=== PATIENT | female | born 1990 | race Caucasian/White ===

== ENCOUNTER 2016-07-18 15:36 | Emergency (ER) | payer OTHER, SELFPAY ==
[~2016-07-18] VITALS: Ht 154.9 cm; Wt 74.8 kg
[~2016-07-18 15:36] MED LIST: ACET65TA OR; AMBI10TA OR; CIPR500T19 OR; FERR325T3 PO; FLAG500T OR; GLUC850T OR; GLYB5TA PO; IBUP80TA PO; OMEP20TA7 OR; PERC5TAB8 OR; PERCOCET PO; PRENTAB31 PO; ZOLO50TA OR
[2016-07-18 15:38] VITALS: BP 127/77
[2016-07-18] MEDS ORDERED: SERT50TA PO (15:46)
[2016-07-18] MEDS ORDERED: ALBUTEROL 90 MCG/ACT 8GM HFA INHALER INH ONE (16:15)
[2016-07-18] MEDS ORDERED: IBUPROFEN 800 MG TAB PO ONE (16:15)
[2016-07-18] MEDS ORDERED: ZITHTAB PO (16:40)
[2016-07-18] MEDS ORDERED: AZITHROMYCIN 250 MG TAB PO ONE (16:45)
--- NOTE | 2016-07-18 18:29 | ECGEPIP ---
Stationary ECG Study [facility] - ED Test Date: 2016-07-18 Pat Name: SCARLETT COSBY Department: Room: - Gender: F Spudder: neymar : 1990 Requested By: MOSHE Jain Order Number: [id number] Reading MD: Severiano Hurd Measurements Intervals [place] Rate: 66 P: -8 LA: 167 QRS: 70 QRSD: 86 T: 36 QT: 382 QTc: 403 Interpretive Statements SINUS RHYTHM BENIGN EARLY REPOLARIZATION Electronically Signed On 07-18-2016 18:29:04 EDT by Severiano Hurd
--- NOTE | 2016-07-19 06:25 | REP ---
CHEST, TWO VIEWS: There is no evidence of acute infiltrate. No pleural effusion is seen. The heart is normal in size. The mediastinal silhouette is unremarkable. The visualized osseous structures are intact. IMPRESSION: No acute pulmonary disease. Signed by Hari Mayer MD 07/19/2016 04:05 P
== END 2016-07-18 16:51 | disposition home or self-care (01) ==
LOC: M ED 16:36
DX: J45.21 Mild intermittent asthma with (acute) exacerbation (principal); J20.9 Acute bronchitis, unspecified; H66.91 Otitis media, unspecified, right ear; E11.9 Type 2 diabetes mellitus without complications; F32.9 Major depressive disorder, single episode, unspecified; Z91.040 Latex allergy status; Z91.018 Allergy to other foods; Z79.899 Other long term (current) drug therapy

== ENCOUNTER 2017-08-31 19:19 | Emergency (ER) | payer OTHER, SELFPAY ==
[2017-08-31] MEDS: KETOROLAC 30 MG/ML VIAL (J1885) IV (20:00)
[2017-08-31] MEDS: NS 1,000 ML IV (20:00)
[2017-08-31 20:14] LABS: BASO # 0.1 10^3/uL (0.0-0.2); BASO % 0.9 % (0.0-1.0); EOS # 0.1 10^3/uL (0.0-0.50); EOS % 1.1 % (0.0-3.0); HEMATOCRIT 39.3 % (36.0-47.0); IMMATURE GRANULOCYTE % 0.4 % (0-3.0); LYMPH # 2.3 10^3/uL (1.5-6.5); LYMPH % 28.4 % (24.0-44.0); MEAN CORPUSCULAR HEMOGLOBIN 33.4 pg (27.0-33.0); MEAN CORPUSCULAR VOLUME 87.5 fl (80.0-96.0); MONO # 0.4 10^3/uL (0.0-0.8); MONO % 5.2 % (0.0-5.0); NEUTROPHILS # 5.2 10^3/uL (1.8-7.7); PLATELET COUNT, AUTOMATED 190 10^3/uL (150-450); RED BLOOD COUNT 4.49 10^6/uL (4.00-5.40); RED CELL DISTRIBUTION WIDTH 12.2 % (11.5-14.5)
[2017-08-31 20:22] LABS: CONTROL LINE HCG INT CTR LINE PRESENT; HCG, SERUM QUALITATIVE NEGATIVE (NEGATIVE)
[2017-08-31 20:23] LABS: OSMOLALITY SERUM 294 MOSM/KG (275-295)
[2017-08-31 20:27] LABS: ALBUMIN 4.6 GM/DL (3.2-5.2); ALBUMIN/GLOBULIN RATIO 1.64 (1.00-1.93); ALKALINE PHOSPHATASE 70 U/L (45-117); ALT/SGPT 14 U/L (12-78); ANION GAP 11 MEQ/L (8-16); AST/SGOT 10 U/L (7-37); BILIRUBIN,DIRECT 0.2 MG/DL (0.0-0.2); BLOOD UREA NITROGEN 14 MG/DL (7-18); CARBON DIOXIDE LEVEL 24 MEQ/L (21-32); CHLORIDE LEVEL 103 MEQ/L (98-107); CREATININE FOR GFR 1.04 MG/DL (0.55-1.30); GLOMERULAR FILTRATION RATE > 60.0 (>60); GLUCOSE, FASTING 328 MG/DL (70-100); LIPASE 193 U/L (73-393); POTASSIUM SERUM 4.1 MEQ/L (3.5-5.1); SODIUM LEVEL 138 MEQ/L (136-145); TOTAL PROTEIN 7.4 GM/DL (6.4-8.2)
[2017-08-31 20:29] LABS: VENOUS PH 7.427 UNITS (7.330-7.430)
[2017-08-31 20:30] LABS: VENOUS BASE EXCESS -1.5 (-2.0-2.0); VENOUS HCO3 22.1 MEQ/L (23.0-27.0); VENOUS O2 SATURATION 78.2 % (60.0-80.0); VENOUS PARTIAL PRESSURE CO2 34.3 mmHg (38.0-50.0); VENOUS PARTIAL PRESSURE O2 37.8 mmHg (30.0-50.0); VENOUS STANDARD HCO3 22.8 MEQ/L; VENOUS TOTAL CO2 23.2 MEQ/L (24.0-28.0)
[2017-08-31 20:52] LABS: MEAN CORPUSCULAR HGB CONC 38.2 g/dl (32.0-36.5); POS COUNT POS FLAG
[2017-08-31 21:08] LABS: ESTIMATED AVERAGE GLUCOSE 126 MG/DL (60-110)
[2017-08-31 22:11] LABS: BEDSIDE GLUCOSE 304 MG/DL (70-105)
[2017-08-31 22:17] LABS: KETONE, URINE AUTO RFX TRACE mg/dL (NEGATIVE); LEUKOCYTE ESTERASE UR AUTO RFX NEGATIVE (NEGATIVE); NITRITE, URINE AUTO RFX NEGATIVE (NEGATIVE); RBC, URINE AUTO RFX 1 /HPF (0-3); SPECIFIC GRAVITY UR AUTO RFX 1.027 (1.002-1.035); SQUAM EPITHELIAL CELL UR AURFX 4 /HPF (0-6); WBC, URINE AUTO RFX 1 /HPF (0-3)
== END 2017-08-31 22:32 | disposition home or self-care (01) ==
LOC: M ED 19:19
DX: E11.65 Type 2 diabetes mellitus with hyperglycemia (principal); R42 Dizziness and giddiness; Z79.84 Long term (current) use of oral hypoglycemic drugs; Z91.040 Latex allergy status; Z91.018 Allergy to other foods
CPT/HCPCS: J1885

== ENCOUNTER → 2018-10-30 | Outpatient (REF) | payer OTHER ==
[~2018-10-30] MED LIST changes: +GLYB-147 PO; -GLYB5TA PO; +METF500T13 PO; +SERT-141 PO; +ZITHTAB PO
[2018-10-30 18:56] LABS: ALBUMIN 4.2 GM/DL (3.2-5.2); ALT/SGPT 14 U/L (12-78); BILIRUBIN,TOTAL 0.8 MG/DL (0.2-1.0); BLOOD UREA NITROGEN 13 MG/DL (7-18); CALCIUM LEVEL 8.9 MG/DL (8.5-10.1); CARBON DIOXIDE LEVEL 28 MEQ/L (21-32); CHLORIDE LEVEL 109 MEQ/L (98-107); CHOLESTEROL LEVEL 98 MG/DL (<200); CREATININE FOR GFR 0.67 MG/DL (0.55-1.30); FREE T4 0.84 NG/DL (0.76-1.46); GLOMERULAR FILTRATION RATE > 60.0 (>60); GLUCOSE, FASTING 173 MG/DL (70-100); HDL CHOLESTEROL 28 MG/DL (>40); LDL CHOLESTEROL 52 MG/DL (<100); NON-HDL-C 70 MG/DL; POTASSIUM SERUM 4.5 MEQ/L (3.5-5.1); SODIUM LEVEL 138 MEQ/L (136-145); TRIGLYCERIDES LEVEL 89 MG/DL (<150)
[2018-10-30 18:59] LABS: TOTAL 25(OH) VITAMIN D 17.1 NG/ML (30.0-100.0)
[2018-10-30 19:01] LABS: BASO # 0.1 10^3/uL (0.0-0.2); BASO % 1.1 % (0.0-1.0); EOS # 0.2 10^3/uL (0.0-0.50); EOS % 2.7 % (0.0-3.0); HEMATOCRIT 35.7 % (36.0-47.0); LYMPH # 1.4 10^3/uL (1.5-4.5); MEAN CORPUSCULAR HEMOGLOBIN 33.6 pg (27.0-33.0); MEAN CORPUSCULAR HGB CONC 36.4 g/dl (32.0-36.5); MEAN CORPUSCULAR VOLUME 92.2 fl (80.0-96.0); MONO # 0.3 10^3/uL (0.0-0.8); MONO % 5.9 % (0.0-5.0); NEUTROPHILS # 3.6 10^3/uL (1.8-7.7); NEUTROPHILS % 65.1 % (36.0-66.0); PLATELET COUNT, AUTOMATED 171 10^3/uL (150-450); RED BLOOD COUNT 3.87 10^6/uL (4.00-5.40); WHITE BLOOD COUNT 5.6 10^3/uL (4.0-10.0)
[2018-10-30 19:49] LABS: APPEARANCE, URINE CLOUDY (CLEAR); BACTERIA, URINE AUTO NEGATIVE (NEGATIVE); BILIRUBIN, URINE AUTO NEGATIVE (NEGATIVE); BLOOD, URINE BLOOD NEGATIVE (NEGATIVE); COLOR, URINE YELLOW (YELLOW); GLUCOSE, URINE (UA) AUTO NEGATIVE (NEGATIVE); KETONE, URINE AUTO NEGATIVE (NEGATIVE); LEUKOCYTE ESTERASE, URINE AUTO NEGATIVE (NEGATIVE); MUCUS, URINE SMALL (NEGATIVE); NITRITE, URINE AUTO NEGATIVE (NEGATIVE); PROTEIN, URINE AUTO NEGATIVE (NEGATIVE); RBC, URINE AUTO 1 /HPF (0-3); SPECIFIC GRAVITY URINE AUTO 1.018 (1.002-1.035); SQUAMOUS EPITHELIAL CELL UR AU 20 /HPF (0-6); UROBILINOGEN, URINE AUTO 0.2 mg/dL (0.0-2.0); WBC, URINE AUTO 2 /HPF (0-3)
[2018-10-30 20:10] LABS: CREATININE, URINE 81.3 MG/DL; MALB URINE SIEMENS 8.2 MG/L
[2018-10-30 20:15] LABS: HEMOGLOBIN A1c 4.7 %
== END ==
LOC: M LAB REF 17:50
PROVIDERS: ATTEND Nurse Practitioner Family
DX: E11.9 Type 2 diabetes mellitus without complications (principal)

== ENCOUNTER → 2019-02-05 | Outpatient (CLI) | payer OTHER ==
--- NOTE | 2019-02-05 11:43 | REP ---
Clinical: Cough and dyspnea. Technique: PA and lateral. Comparison: 07/18/2016. Findings: Mediastinum and cardiac silhouette are normal. Very subtle air space disease involving the right mid/lower lung zone cannot be excluded and should be correlated with auscultation. Findings may reflect an early bronchitis or pneumonitis. Remainder of lung jane are clear. No effusion. No pneumothorax. Impression: Very subtle right mid to lower lung air space disease cannot be excluded and should be correlated with auscultation. No discrete focal consolidation or effusion. Electronically Signed by Mack Lazaro MD 02/05/2019 11:34 A
== END ==
LOC: M RAD 11:19
PROVIDERS: ATTEND Physician Assistant
DX: R06.00 Dyspnea, unspecified (principal)

== ENCOUNTER → 2019-02-26 | Outpatient (CLI) | payer OTHER ==
[~2019-02-26] MED LIST changes: +METHACHOLINE KIT (J7674) INH ONE
--- NOTE | 2019-02-26 11:32 | PFTRPT ---
Site: [facility], [address] [place], [address] ID: [id number] Name: SCARLETT COSBY Visit Date: 02/26/2019 Second ID: [id number] Referring Doctor: ONI Kothari, Sj Dan Reviewing Doctor: Chance Crooks MD [employer] Mill Operator: Trent PAK RRT Age: 28 : 1990 Sex: Female Race: Height: 60.50 Inches Weight: 165.00 Lbs BSA: 1.73 Order IDs: [id number] Requested Test(s): <RESP-PFT.METH CHAL> Diagnosis: R06.00 of albuterol for postbronchodilator. Review Status: Not Reviewed Pre-Bronch Post-Bronch Pred Actual %Pred Actual %Chng SPIROMETRY FVC (L) 3.36 2.82 83 2.69 -4 FEV1 (L) 2.86 2.43 85 2.37 -2 FEV1/FVC (%) 84 86 102 88 2 FEF 25% (L/sec) 5.32 6.14 115 4.58 -25 FEF 50% (L/sec) 4.48 3.57 79 4.15 16 FEF 75% (L/sec) 1.89 1.22 64 1.08 -11 FEF 25-75% (L/sec) 3.25 2.89 88 2.88 FEF Max (L/sec) 6.48 6.15 94 4.73 -23 FIVC (L) 2.78 2.76 FIF 50% (L/sec) 4.02 2.76 68 2.50 -9 FIF Max (L/sec) 2.77 2.73 -1 Expiratory Time (sec) 7.10 6.70 -5 Back Extrap Vol (L) 0.13 0.15 12 Time To FEFmax (sec) 0.116 0.228 95
== END ==
LOC: M CARPUL 10:42
PROVIDERS: ATTEND Physician Assistant
DX: R40.0 Somnolence (principal)
CPT/HCPCS: 94070; 95070; J7674

== ENCOUNTER → 2019-03-07 | Outpatient (REF) | payer OTHER ==
[~2019-03-07] MED LIST changes: -METHACHOLINE KIT (J7674) INH ONE
[2019-03-07 13:07] LABS: BASO # 0.1 10^3/uL (0.0-0.2); BASO % 0.8 % (0.0-1.0); EOS # 0.1 10^3/uL (0.0-0.5); EOS % 2.3 % (0.0-3.0); HEMATOCRIT 36.7 % (36.0-47.0); LYMPH # 1.6 10^3/uL (1.5-5.0); LYMPH % 25.9 % (24.0-44.0); MEAN CORPUSCULAR HEMOGLOBIN 33.7 pg (27.0-33.0); MEAN CORPUSCULAR HGB CONC 35.4 g/dl (32.0-36.5); MEAN CORPUSCULAR VOLUME 95.1 fl (80.0-96.0); MONO # 0.4 10^3/uL (0.0-0.8); MONO % 6.5 % (0.0-5.0); NEUTROPHILS # 3.9 10^3/uL (1.5-8.5); NEUTROPHILS % 63.8 % (36.0-66.0); PLATELET COUNT, AUTOMATED 173 10^3/uL (150-450); RED BLOOD COUNT 3.86 10^6/uL (4.00-5.40); WHITE BLOOD COUNT 6.1 10^3/uL (4.0-10.0)
[2019-03-07 13:24] LABS: ALBUMIN 4.2 GM/DL (3.2-5.2); ALT/SGPT 9 U/L (12-78); BILIRUBIN,TOTAL 1.7 MG/DL (0.2-1.0); BLOOD UREA NITROGEN 15 MG/DL (7-18); CALCIUM LEVEL 8.5 MG/DL (8.5-10.1); CARBON DIOXIDE LEVEL 25 MEQ/L (21-32); CHLORIDE LEVEL 107 MEQ/L (98-107); CHOLESTEROL LEVEL 87 MG/DL (<200); CHOLESTEROL RISK RATIO 3.954 (<5); GLOMERULAR FILTRATION RATE > 60.0 (>60); GLUCOSE, FASTING 106 MG/DL (70-100); HDL CHOLESTEROL 22 MG/DL (>40); LDL CHOLESTEROL 35 MG/DL (<100); NON-HDL-C 65 MG/DL; POTASSIUM SERUM 4.1 MEQ/L (3.5-5.1); SODIUM LEVEL 140 MEQ/L (136-145); TOTAL 25(OH) VITAMIN D 21.6 NG/ML (30.0-100.0); TOTAL PROTEIN 6.9 GM/DL (6.4-8.2); TRIGLYCERIDES LEVEL 148 MG/DL (<150)
== END ==
LOC: M LAB REF 12:37
PROVIDERS: ATTEND Nurse Practitioner Family
DX: Z00.01 Encounter for general adult medical examination with abnormal findings (principal)

== ENCOUNTER → 2019-04-18 | Outpatient (REF) | payer OTHER | LOC: M LAB REF 16:02 | PROVIDERS: ATTEND Physician Assistant | DX: R10.9 Unspecified abdominal pain (principal) ==

== ENCOUNTER → 2019-05-08 | Outpatient (CLI) | payer OTHER ==
[2019-05-08 12:14] LABS: BASO % 0.6 % (0.0-1.0); EOS % 0.5 % (0.0-3.0); HEMATOCRIT 35.7 % (36.0-47.0); HEMOGLOBIN 12.7 g/dl (12.0-15.5); LYMPH # 1.5 10^3/uL (1.5-5.0); MEAN CORPUSCULAR HEMOGLOBIN 33.2 pg (27.0-33.0); MEAN CORPUSCULAR HGB CONC 35.6 g/dl (32.0-36.5); MEAN CORPUSCULAR VOLUME 93.2 fl (80.0-96.0); MONO # 0.4 10^3/uL (0.0-0.8); MONO % 6.6 % (0.0-5.0); NEUTROPHILS # 4.4 10^3/uL (1.5-8.5); PLATELET COUNT, AUTOMATED 176 10^3/uL (150-450); RED BLOOD COUNT 3.83 10^6/uL (4.00-5.40); WHITE BLOOD COUNT 6.4 10^3/uL (4.0-10.0)
[2019-05-08 12:30] LABS: ALBUMIN 4.4 GM/DL (3.2-5.2); ALT/SGPT 12 U/L (12-78); BILIRUBIN,TOTAL 0.8 MG/DL (0.2-1.0); BLOOD UREA NITROGEN 15 MG/DL (7-18); CALCIUM LEVEL 8.8 MG/DL (8.5-10.1); CARBON DIOXIDE LEVEL 23 MEQ/L (21-32); CHLORIDE LEVEL 110 MEQ/L (98-107); CREATININE FOR GFR 0.79 MG/DL (0.55-1.30); GLOMERULAR FILTRATION RATE > 60.0 (>60); GLUCOSE, FASTING 200 MG/DL (70-100); POTASSIUM SERUM 4.3 MEQ/L (3.5-5.1); RHEUMATOID FACTOR QUANT < 10.0 IU/ML (<15.0); SODIUM LEVEL 138 MEQ/L (136-145); TOTAL PROTEIN 6.8 GM/DL (6.4-8.2)
[2019-05-08 12:49] LABS: ERYTHROCYTE SEDIMENTATION RATE 4 mm/hr (0-20)
[2019-05-09 14:08] LABS: ANTINUCLEAR ANTIBODIES DIRECT Negative (Negative)
== END ==
LOC: M LAB 11:02
PROVIDERS: ATTEND Physician Assistant Medical
DX: R51 Headache (principal)

== ENCOUNTER → 2019-06-07 | Outpatient (CLI) | payer OTHER | LOC: M PAIN 09:45 | PROVIDERS: ATTEND Nurse Practitioner Family | DX: M54.5 Low back pain (principal) ==

== ENCOUNTER → 2019-07-01 | Outpatient (CLI) | payer OTHER ==
--- NOTE | 2019-07-05 01:58 | ECWPNPC ---
PATIENT NAME: SCARLETT COSBY : 1990 GENDER: FEMALE VISIT DATE: 07/01/2019 DISCHARGE DATE: 07/01/19 1141 VISIT LOCKED DATE TIME: PHYSICIAN: JULIA MCADAMS MD RESOURCE: JULIA MCADAMS MD REASON FOR APPOINTMENT 1. RIGHT SIJ [phone] -PT HAVING TROUBLE DOWNLOADING AP HISTORY OF PRESENT ILLNESS HISTORY OF PRESENT ILLNESS: PAIN THE PATIENT DESCRIBES THE PAIN... PERMISSION FROM PATIENT WAS RECEIVED TO DO TELEMEDICINE VISIT USING [employer] APPLICATION. 28 YEAR OLD FEMALE PATIENT WITH A HISTORY OF CHRONIC LOW BACK AND LEG PAIN. THE PATIENT DESCRIBES HER PAIN ACHING, STABBING, TENDER WITH A PAIN SCORE OF 4-10/10 DEPENDING ON PHYSICAL ACTIVITY. THE PATIENT STATES HER PAIN BEGINS IN HER LOW BACK AND RADIATES DOWN MAINLY HER RIGHT PELVIC, THIGH, AND LEG, WITH NUMBNESS IN HER RIGHT LEG WELL. THE PATIENT SAYS SHE WAS SEEN LAST BY YULIYA IN MAY AND WAS REFERRED TO OUR CLINIC BY RAMEZ NASSAR. THE PATIENT STATES HER PAIN STARTED IN 2007 WHILE WORKING AT [employer] WHERE SHE HAD STRAINED HER BACK SEVERAL TIMES. THE PATIENT SAYS HER PAIN WORSENED TO THE POINT OF NOT BEING ABLE TO WALK, STAND, OR GET OUT OF BED. THE PATIENT SAYS HER LOW BACK PAIN IS SEVERE THAT CAUSED HER TO GO TO THE HOSPITAL TO RECEIVE PAIN RELIEF. THE PATIENT SAYS IN WINTER OF 2008, SHE ALSO EXPERIENCED A FALL WHILE WALKING DOWN STAIRS DUE TO HER PAIN AND NOT BEING ABLE TO STAND STRAIGHT. THE PATIENT STATES HER PAIN INCREASES WITH ACTIVITIES AND IS AFFECTING HER ABILITY TO WALK, SO SHE OFTEN LIMPS, AND PERFORM OTHER NORMAL ACTIVITIES. THE PATIENT DENIES UNEXPLAINED WEIGHT LOSS, FEVER, CHILLS, NEW CHANGES IN HER URINARY OR BOWEL CONTROL. FALL RISK SCREENING: SCREENING :NO FALLS REPORTED IN THE LAST YEAR CURRENT MEDICATIONS TAKING TOPIRAMATE 50 MG TABLET 2 TABLETS ORALLY BEFORE BEDTIME TAKING TIZANIDINE HCL 2 MG TABLET 1 TABLET ORALLY TWICE DAILY NEEDED TAKING TRAZODONE HCL 100 MG TABLET 1/2-1 TAB ORALLY BEFORE BEDTIME NEEDED TAKING SUMATRIPTAN SUCCINATE 100 MG TABLET 1/2-1 TAB ORALLY AT ONSET OF HEADACHE -MAY REPEAT ONCE AFTER 2 HOURS. MAX 2 TABS/DAY TAKING GLYBURIDE 5 MG TABLET 1 TAB ORALLY BEFORE DINNER DAILY TAKING ACETAMINOPHEN 325 MG TABLET 2 TABS ORALLY EVERY 4-6 HRS NEEDED TAKING VITAMIN D (CHOLECALCIFEROL) 50 MCG (2000 UT) CAPSULE 1 CAPSULE ORALLY ONCE A DAY TAKING DULOXETINE HCL 30 MG CAPSULE DELAYED RELEASE PARTICLES 1 CAPSULE ORALLY ONCE A DAY TAKING QVAR REDIHALER 80 MCG/ACT AEROSOL BREATH ACTIVATED 1 PUFF INHALATION ONCE A DAY TAKING ALBUTEROL SULFATE 108 (90 BASE) MCG/ACT AEROSOL POWDER BREATH ACTIVATED 1 PUFF NEEDED INHALATION EVERY 4 HRS MEDICATION LIST REVIEWED AND RECONCILED WITH THE PATIENT PAST MEDICAL HISTORY CHRONIC TENSION-TYPE HEADACHES 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 NECK PAIN LOW BACK PAIN SPONDYLOSIS OF CERVICAL SPINE SKIN SENSATION DISTURBANCE MALAISE AND FATIGUE ASTHMA DEPRESSION, ANXIETY DIABETES ALLERGIES LATEX (FOR ALLERGY USE ONLY): RASH, HIVES,ITCHING - ALLERGY HYDROCODONE BITARTRATE: RASH, HIVES, ITCHING - ALLERGY SURGICAL HISTORY 2008,2015 CHOLECYSTECTOMY 2013 TONSILLECTOMY, ADENOIDECTOMY AGE 3 FAMILY HISTORY FATHER: ALIVE, ASTHMA, BACK AND NECK PROBLEMS MOTHER: ALIVE, CHF, TUMORS IN HER FEET,ASTHMA, TUMOR ON SPINE, BACK PROBLEMS, EDEMA IN LEGS, DEPRESSION, ANXIETY, DIAGNOSED WITH DIABETES, UNSPECIFIED HEART DISEASE SIBLINGS: ALIVE, SISTER HAS CHRONIC BACK PAIN, 2 [facility]. SOCIAL HISTORY GENERAL: TOBACCO USE ARE YOU A:NONSMOKER LATEX QUESTIONNAIRE LATEX ALLERGY : HAVE YOU EVER DEVELOPED ANY TYPE OF REACTION AFTER HANDLING LATEX PRODUCTS SUCH RUBBER GLOVES, CONDOMS, DIAPHRAGMS, BALLOONS, SOCKS, OR UNDERWEAR?YES - PLEASE INDICATE : KNOWN LATEX ALLERGY-HIVES, RASH AND ITCHING DATE ASKED : 06/05/2019 ALCOHOL SCREENING DID YOU HAVE A DRINK CONTAINING ALCOHOL IN THE PAST YEAR?YES HOW OFTEN DID YOU HAVE SIX OR MORE DRINKS ON ONE OCCASION IN THE PAST YEAR?NEVER (0 POINTS) HOW MANY DRINKS DID YOU HAVE ON A TYPICAL DAY WHEN YOU WERE DRINKING IN THE PAST YEAR?1 OR 2 (0 POINTS) HOW OFTEN DID YOU HAVE A DRINK CONTAINING ALCOHOL IN THE PAST YEAR?MONTHLY OR LESS (1 POINT) POINTS1 INTERPRETATIONNEGATIVE RECREATIONAL DRUG USE DRUG USE?YES HOW OFTEN AND HOW MUCH? ADMITS TO OCCASSIONAL MARIJUANA CAFFEINE CAFFEINE USE?YES HOW OFTEN AND HOW MUCH? 2 LITERS OF DIET PEPSI A DAY UATSDIN [id number] NONE LANGUAGE LANGUAGES SPOKEN:NIGERIAN EDUCATION LEVEL OF EDUCATION:HIGH SCHOOL LEARNING BARRIERS / SPECIAL NEEDS BARRIERS TO LEARNING?YES COMMENTS TAKES LONGER TO LEARN THINGS, NOT GOOD WITH MATH AND SOME SPELLING IS DIFFICULT, SOMETIMES NEEDS HELP WITH READING HEARING IMPAIRED?NO VISION IMPAIRED?YES COGNITIVELY IMPAIRED?YES SOMETIMES HAS SOMEONE HELP HER WITH READING WHEN FILLING OUT PAPERS :CORRECTIVE LENSES READINESS TO LEARN?YES LEARNING PREFERENCES?YES :DEMONSTRATION/VERBAL INSTRUCTION LEARNING CAPABILITIES PRESENT?YES EMOTIONAL BARRIERS?YES COMMENTS ANXIETY AND DEPRESSION SPECIAL DEVICES?YES :CANE RIGHT LEG OCCASSIONALLY GIVES OUT ON HER SPECIAL OFFICER AUTOMAT NEEDED?NO DOMESTIC VIOLENCE DO YOU FEEL SAFE IN YOUR ENVIRONMENT?YES OCCUPATION: UNEMPLOYED. DIET: CARBOHYDRATE CONTROLLED. EXERCISE: CHASING KIDS AND WORKS OUT WITH HER DAUGHTER. NEW PATIENT PAIN DIARY TODAY'S VISITNOTES 07/01/2019 PATIENT DESCRIBES PAIN :ACHING, STABBING, TENDER FROM 0-10, WHAT LEVEL IS YOUR PAIN TODAY?6 PRECIPITATING FACTORS ACTIVITIES, WALKING, PROLONG STANDING ALLEVIATING FACTORS SITTING SOMETIMES AND MEDICATION (TIZANIDINE, TRAZADONE,CYMBALTA) IMPACT ON FUNCTION INTERFERES WITH DAILY ACTIVITIES PAIN CLINIC PFS, CLERGY, PUBLIC HEALTH REFERRALS PFS REFERRAL NEEDED?NO CLERGY REFERRAL NEEDED?NO PUBLIC HEALTH REFERRAL NEEDED?NO HAS THE PATIENT BEEN EDUCATED REGARDING HIS/HER PLAN OF CARE?YES HAS THE PATIENT BEEN EDUCATED REGARDING PAIN, THE RISK FOR PAIN, THE IMPORTANCE OF EFFECTIVE PAIN MANAGEMENT, AND THE PAIN ASSESSMENT PROCESS?YES ADVANCE DIRECTIVE ADVANCE DIRECTIVE DISCUSSED WITH PATIENT:YES 06/07/2019 PT DOES NOT HAVE ANY ADVANCED DIRECTIVES AND SHE DECLINES INFORMATION ON HCP AT THIS. 06/05/2019 PRE-APPOINTMENT CALL COMPLETED ALONG WITH COVID-19 SCREENING AD. HOSPITALIZATION/MAJOR DIAGNOSTIC PROCEDURE SURGERIES REVIEW OF SYSTEMS REVIEWED BY: PROVIDER: JULIA MCADAMS MD . CONSTITUTIONAL: ANY CHANGE IN YOUR MEDICAL CONDITION? NO . CHILLS NO . FEVER NO . INFECTION: DO YOU HAVE NEW INFECTIONS? NO . DO YOU HAVE HISTORY OF MRSA? NO . MUSCULOSKELETAL: ANY NEW PATTERNS OF PAIN OR NUMBNESS? NO . GASTROENTEROLOGY: ANY NEW CHANGE IN BOWEL CONTROL? NO . GENITOURINARY: ANY NEW CHANGE IN BLADDER CONTROL? NO . IS THERE A CHANCE YOU COULD BE ? NO . HEMATOLOGY/LYMPH: DO YOU TAKE ANY BLOOD THINNERS? (FOR EXAMPLE- COUMADIN, PLAVIX, AGGRENOX, PLATEL, PRADAXA, OR XARELTO) NO . WHEN WAS YOUR LAST DOSE? DATE: TIME: . NEUROLOGY: HAVE YOU FALLEN IN THE PAST 12 MONTHS? NO . ANY NEW EXTREMITY NUMBNESS OR WEAKNESS? NO . CARDIOLOGY: DO YOU HAVE A PACEMAKER OR DEFIBRILLATOR? NO . RESPIRATORY: HAVE YOU BEEN SICK IN THE PAST WEEK? NO . FEVER NO . FLU LIKE SYMPTOMS? NO . COUGH NO . INTEGUMENTARY: DO YOU HAVE ANY RASHES OR OPEN SORES? NO . ALLERGIC/IMMUNO: ARE YOU ALLERGIC TO IV DYE? NO . ANY NEW ALLERGIES? NO . PSYCHIATRIC: DO YOU HAVE THOUGHTS OF HURTING YOURSELF OR SOMEONE ELSE? NO . ARE YOU ABUSED, NEGLECTED, OR IN AN UNSAFE ENVIRONMENT? NO . ENDOCRINOLOGY: ARE YOU DIABETIC? YES . OTHER: DO YOU NEED ANY PRESCRIPTIONS? NO . IF YES, PLEASE LIST: ____ . ANY NEW PROBLEMS WITH YOUR MEDICATIONS? NO . WHEN DID YOU LAST EAT? ____ . WHEN DID YOU LAST DRINK? ____ . WHAT DID YOU LAST DRINK? ____ . NAME OF PERSON DRIVING YOU HOME? ____ . DO YOU HAVE ANY OTHER QUESTIONS OR CONCERNS NO . EXAMINATION GENERAL EXAMINATION: TELEMEDICINE USING [employer] APPLICATION. PATIENT IS ALERT O X 3 AND COOPERATIVE. PATIENT SHOWED WHERE HER PAIN IS LOCATED IN HER THE RIGHT LOW BACK, BUTTOCKS, AND DOWN THE FRONT OF THIGH. THE PATIENT'S PAIN SEEMS TO DISTRIBUTE FROM THE LEVEL OF L5-S1 WITH RADIATION TO RIGHT ANTERIOR THIGH AREA. MRI OF THE LUMBAR SPINE DONE ON 04/17/2019 SHOWS DISC EXTRUSION WITH A TEAR AT L5-S1. ASSESSMENTS INTERVERTEBRAL DISC DISORDERS WITH RADICULOPATHY, LUMBAR REGION - M51.16 (PRIMARY) LUMBAGO WITH SCIATICA, LEFT SIDE - M54.42 LUMBAGO WITH SCIATICA, RIGHT SIDE - M54.41 OTHER CHRONIC PAIN - G89.29 TREATMENT INTERVERTEBRAL DISC DISORDERS WITH RADICULOPATHY, LUMBAR REGION CLINICAL NOTES: WE DISCUSSED SEVERAL ISSUES WITH MS. COSBY' PAIN MANAGEMENT CASE. THE PATIENT HAS HAD AN EMG STUDY DONE FOR HER ARM AND SHOULDER, BUT NOT FOR HER LOW BACK OR LEG. THEREFORE, I AM REQUESTING FOR NCS AND EMG STUDIES TO BE DONE AT [facility] FOR THE PATIENT'S LOW BACK TO BETTER UNDERSTAND THE NATURE OF THE PATIENT'S PAIN. THE PATIENT WILL CALL HER PRIMARY CARE PROVIDER TO GIVE AUTHORIZATION FOR ME TO DISCUSS WITH HER PRIMARY CARE ABOUT INCREASING THE PATIENT'S CYMBALTA FROM 30 TO 60 MG TO HELP WITH HER PAIN, WHICH I AM AGREEABLE TO WRITE THE PRESCRIPTION FOR THE PATIENT. THE PATIENT WILL CALL BACK TO LET US KNOW IF WE AUTHORIZED TO DISCUSS HER CASE WITH HER PRIMARY CARE PROVIDER. THE PATIENT UNDERSTANDS THAT PROCEDURES ARE BEING POSTPONED DUE TO OUR CURRENT SITUATION WITH COVID-19 AND IS WILLING TO WAIT UNTIL WE CAN RESUME. WE DISCUSSED THE CONCERNS OF STEROIDS CAUSING IMMUNOSUPPRESSION SHORT-TERM. THE PATIENT WILL FOLLOW UP WITH TRAIN CLERK YULIYA JAMA ON JULY 21. INSTRUCTIONS WERE GIVEN, QUESTIONS WERE ANSWERED, PATIENT REPORTS UNDERSTANDING AND AGREES WITH THE PLAN. I, MAJO DAMON, DOCUMENTED THE ABOVE INFORMATION ACTING A SCRIBE FOR DR. MCADAMS. I HAVE REVIEWED THE ABOVE DOCUMENT, WRITTEN BY MAJO DAMON SCRIBE AND I VERIFY THAT IT IS ACCURATE. . DISPOSITION & COMMUNICATION FOLLOW UP 3 WEEKS (REASON: F/UP WITH YULIYA ON JULY 21 (SCHEDULED)) ELECTRONICALLY SIGNED BY JULIA MCADAMS MD, ON 07/04/2019 AT 01:53 PM EDT DISCLAIMER : THIS IS A VISIT SUMMARY EXTRACTED FROM THE [employer] CHART. IT IS NOT A COPY OF THE [employer] PROGRESS NOTE. JAIDEN
== END ==
LOC: M PAIN 10:45
PROVIDERS: ATTEND Anesthesiology
DX: M51.16 Intervertebral disc disorders with radiculopathy, lumbar region (principal); G89.29 Other chronic pain; E11.9 Type 2 diabetes mellitus without complications; Z79.84 Long term (current) use of oral hypoglycemic drugs; Z79.899 Other long term (current) drug therapy; Z88.5 Allergy status to narcotic agent; Z91.040 Latex allergy status

== ENCOUNTER → 2019-07-18 | Outpatient (CLI) | payer OTHER ==
--- NOTE | 2019-07-20 00:02 | ECWPNPC ---
PATIENT NAME: SCARLETT COSBY : 1990 GENDER: FEMALE VISIT DATE: 07/18/2019 DISCHARGE DATE: 07/18/19 0837 VISIT LOCKED DATE TIME: PHYSICIAN: YULIYA JAMA RESOURCE: YULIYA JAMA REASON FOR APPOINTMENT 1. [phone] POST RIGHT SIJ - PAT COMPLETED HISTORY OF PRESENT ILLNESS HISTORY OF PRESENT ILLNESS: PATIENT IS AGREEABLE FOR A TELEMED VISIT VIA ZOOM TODAY. THIS IS A FOLLOW-UP FOR CHRONIC LOW BACK PAIN WITH RIGHT LEG RADICULAR SYMPTOMS. TELEMED VISIT NOTE FROM DR. MCADAMS IS REVIEWED. HE HAS REQUESTED NERVE CONDUCTION STUDIES OF THE LOWER EXTREMITIES. HE SUGGESTED AN INCREASE OF CYMBALTA TO 60 MG DAILY. WE RECEIVED AN OKAY FROM PRIMARY CARE TO INCREASE THAT DOSE AND WE WILL SEND PRESCRIPTION FOR THAT TODAY. REVIEWED MRI AND DISCUSSED TREATMENT OPTIONS. WAS SCHEDULED FOR RIGHT SIJ, BUT THAT WAS CANCELED DUE TO COVID 19 PRECAUTIONS. RATING PAIN VAS 8/10. PAIN THE PATIENT DESCRIBES THE PAIN... FALL RISK SCREENING: SCREENING :NO FALLS REPORTED IN THE LAST YEAR CURRENT MEDICATIONS TAKING TOPIRAMATE 50 MG TABLET 2 TABLETS ORALLY BEFORE BEDTIME TAKING TIZANIDINE HCL 2 MG TABLET 1 TABLET ORALLY TWICE DAILY NEEDED TAKING TRAZODONE HCL 100 MG TABLET 1/2-1 TAB ORALLY BEFORE BEDTIME NEEDED TAKING SUMATRIPTAN SUCCINATE 100 MG TABLET 1/2-1 TAB ORALLY AT ONSET OF HEADACHE -MAY REPEAT ONCE AFTER 2 HOURS. MAX 2 TABS/DAY TAKING GLYBURIDE 5 MG TABLET 1 TAB ORALLY BEFORE DINNER DAILY TAKING ACETAMINOPHEN 325 MG TABLET 2 TABS ORALLY EVERY 4-6 HRS NEEDED TAKING VITAMIN D (CHOLECALCIFEROL) 50 MCG (2000 UT) CAPSULE 1 CAPSULE ORALLY ONCE A DAY TAKING DULOXETINE HCL 30 MG CAPSULE DELAYED RELEASE PARTICLES 1 CAPSULE ORALLY ONCE A DAY TAKING QVAR REDIHALER 80 MCG/ACT AEROSOL BREATH ACTIVATED 1 PUFF INHALATION ONCE A DAY TAKING ALBUTEROL SULFATE 108 (90 BASE) MCG/ACT AEROSOL POWDER BREATH ACTIVATED 1 PUFF NEEDED INHALATION EVERY 4 HRS MEDICATION LIST REVIEWED AND RECONCILED WITH THE PATIENT PAST MEDICAL HISTORY CHRONIC TENSION-TYPE HEADACHES 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 NECK PAIN LOW BACK PAIN SPONDYLOSIS OF CERVICAL SPINE SKIN SENSATION DISTURBANCE MALAISE AND FATIGUE ASTHMA DEPRESSION, ANXIETY DIABETES ALLERGIES LATEX (FOR ALLERGY USE ONLY): RASH, HIVES,ITCHING - ALLERGY HYDROCODONE BITARTRATE: RASH, HIVES, ITCHING - ALLERGY SURGICAL HISTORY 2009,2016 CHOLECYSTECTOMY 2013 TONSILLECTOMY, ADENOIDECTOMY AGE 3 FAMILY HISTORY FATHER: ALIVE, ASTHMA, BACK AND NECK PROBLEMS MOTHER: ALIVE, CHF, TUMORS IN HER FEET,ASTHMA, TUMOR ON SPINE, BACK PROBLEMS, EDEMA IN LEGS, DEPRESSION, ANXIETY, DIAGNOSED WITH DIABETES, UNSPECIFIED HEART DISEASE SIBLINGS: ALIVE, SISTER HAS CHRONIC BACK PAIN, 2 [facility]. SOCIAL HISTORY GENERAL: TOBACCO USE ARE YOU A:NONSMOKER LATEX QUESTIONNAIRE LATEX ALLERGY : HAVE YOU EVER DEVELOPED ANY TYPE OF REACTION AFTER HANDLING LATEX PRODUCTS SUCH RUBBER GLOVES, CONDOMS, DIAPHRAGMS, BALLOONS, SOCKS, OR UNDERWEAR?YES - PLEASE INDICATE : KNOWN LATEX ALLERGY-HIVES, RASH AND ITCHING DATE ASKED : 06/05/2019 ALCOHOL SCREENING DID YOU HAVE A DRINK CONTAINING ALCOHOL IN THE PAST YEAR?YES HOW OFTEN DID YOU HAVE SIX OR MORE DRINKS ON ONE OCCASION IN THE PAST YEAR?NEVER (0 POINTS) HOW MANY DRINKS DID YOU HAVE ON A TYPICAL DAY WHEN YOU WERE DRINKING IN THE PAST YEAR?1 OR 2 (0 POINTS) HOW OFTEN DID YOU HAVE A DRINK CONTAINING ALCOHOL IN THE PAST YEAR?MONTHLY OR LESS (1 POINT) POINTS1 INTERPRETATIONNEGATIVE RECREATIONAL DRUG USE DRUG USE?YES HOW OFTEN AND HOW MUCH? ADMITS TO OCCASSIONAL MARIJUANA CAFFEINE CAFFEINE USE?YES HOW OFTEN AND HOW MUCH? 2 LITERS OF DIET PEPSI A DAY BAHAI [id number] NONE LANGUAGE LANGUAGES SPOKEN:SOUTH AFR[place] EDUCATION LEVEL OF EDUCATION:HIGH SCHOOL LEARNING BARRIERS / SPECIAL NEEDS BARRIERS TO LEARNING?YES COMMENTS TAKES LONGER TO LEARN THINGS, NOT GOOD WITH MATH AND SOME SPELLING IS DIFFICULT, SOMETIMES NEEDS HELP WITH READING HEARING IMPAIRED?NO VISION IMPAIRED?YES COGNITIVELY IMPAIRED?YES SOMETIMES HAS SOMEONE HELP HER WITH READING WHEN FILLING OUT PAPERS :CORRECTIVE LENSES READINESS TO LEARN?YES LEARNING PREFERENCES?YES :DEMONSTRATION/VERBAL INSTRUCTION LEARNING CAPABILITIES PRESENT?YES EMOTIONAL BARRIERS?YES COMMENTS ANXIETY AND DEPRESSION SPECIAL DEVICES?YES :CANE RIGHT LEG OCCASSIONALLY GIVES OUT ON HER BANK APPRAISER NEEDED?NO DOMESTIC VIOLENCE DO YOU FEEL SAFE IN YOUR ENVIRONMENT?YES OCCUPATION: UNEMPLOYED. DIET: CARBOHYDRATE CONTROLLED. EXERCISE: CHASING KIDS AND WORKS OUT WITH HER DAUGHTER. NEW PATIENT PAIN DIARY TODAY'S VISITNOTES 07/17/2019 PATIENT DESCRIBES PAIN :ACHING, STABBING, TENDER FROM 0-10, WHAT LEVEL IS YOUR PAIN TODAY?8 PRECIPITATING FACTORS ACTIVITIES, WALKING, PROLONG STANDING ALLEVIATING FACTORS SITTING SOMETIMES AND MEDICATION (TIZANIDINE, TRAZADONE,CYMBALTA) IMPACT ON FUNCTION INTERFERES WITH DAILY ACTIVITIES PAIN CLINIC PFS, CLERGY, PUBLIC HEALTH REFERRALS PFS REFERRAL NEEDED?NO CLERGY REFERRAL NEEDED?NO PUBLIC HEALTH REFERRAL NEEDED?NO HAS THE PATIENT BEEN EDUCATED REGARDING HIS/HER PLAN OF CARE?YES HAS THE PATIENT BEEN EDUCATED REGARDING PAIN, THE RISK FOR PAIN, THE IMPORTANCE OF EFFECTIVE PAIN MANAGEMENT, AND THE PAIN ASSESSMENT PROCESS?YES ADVANCE DIRECTIVE ADVANCE DIRECTIVE DISCUSSED WITH PATIENT:YES 06/07/2019 PT DOES NOT HAVE ANY ADVANCED DIRECTIVES AND SHE DECLINES INFORMATION ON HCP AT THIS. HOSPITALIZATION/MAJOR DIAGNOSTIC PROCEDURE SURGERIES REVIEW OF SYSTEMS REVIEWED BY: PROVIDER: YULIYA CUEVAS . CONSTITUTIONAL: ANY CHANGE IN YOUR MEDICAL CONDITION? NO . CHILLS NO . FEVER NO . INFECTION: DO YOU HAVE NEW INFECTIONS? NO . DO YOU HAVE HISTORY OF MRSA? NO . MUSCULOSKELETAL: ANY NEW PATTERNS OF PAIN OR NUMBNESS? NO . GASTROENTEROLOGY: ANY NEW CHANGE IN BOWEL CONTROL? NO . GENITOURINARY: ANY NEW CHANGE IN BLADDER CONTROL? YES, STRESS INCONTINENCE AND FREQUENCY - BECOMING WORSE . IS THERE A CHANCE YOU COULD BE ? NO . HEMATOLOGY/LYMPH: DO YOU TAKE ANY BLOOD THINNERS? (FOR EXAMPLE- COUMADIN, PLAVIX, AGGRENOX, PLATEL, PRADAXA, OR XARELTO) NO . WHEN WAS YOUR LAST DOSE? DATE: TIME: . NEUROLOGY: HAVE YOU FALLEN IN THE PAST 12 MONTHS? NO . ANY NEW EXTREMITY NUMBNESS OR WEAKNESS? YES, NUMBNESS AND WEAKNESS TO RIGHT LEG . CARDIOLOGY: DO YOU HAVE A PACEMAKER OR DEFIBRILLATOR? NO . RESPIRATORY: HAVE YOU BEEN SICK IN THE PAST WEEK? NO . FEVER NO . FLU LIKE SYMPTOMS? NO . COUGH NO . INTEGUMENTARY: DO YOU HAVE ANY RASHES OR OPEN SORES? NO . ALLERGIC/IMMUNO: ARE YOU ALLERGIC TO IV DYE? NO . ANY NEW ALLERGIES? NO . PSYCHIATRIC: DO YOU HAVE THOUGHTS OF HURTING YOURSELF OR SOMEONE ELSE? NO . ARE YOU ABUSED, NEGLECTED, OR IN AN UNSAFE ENVIRONMENT? NO . ENDOCRINOLOGY: ARE YOU DIABETIC? YES . OTHER: DO YOU NEED ANY PRESCRIPTIONS? NO . IF YES, PLEASE LIST: ____ . ANY NEW PROBLEMS WITH YOUR MEDICATIONS? NO . WHEN DID YOU LAST EAT? ____ . WHEN DID YOU LAST DRINK? ____ . WHAT DID YOU LAST DRINK? ____ . NAME OF PERSON DRIVING YOU HOME? ____ . DO YOU HAVE ANY OTHER QUESTIONS OR CONCERNS YES, DR. MCADAMS HAD SPOKEN TO HER PCP ABOUT INCREASING THE PATIENT'S CYMBALTA. IT LOOKS LIKE IT WAS OK WITH THE PATIENT'S PCP PER PHONE ENCOUNTER BUT THEN HE NEVER INCREASED THE CYMBALTA. PATIENT WOULD LIKE TO KNOW IF THAT CAN BE INCREASED NOW . EXAMINATION GENERAL EXAMINATION: GENERALNO ACUTE DISTRESS, WELL NOURISHED AND HYDRATED. PSYCHAPPROPRIATE MOOD AND AFFECT . FACE:UNREMARKABLE. ASSESSMENTS INTERVERTEBRAL DISC DISORDERS WITH RADICULOPATHY, LUMBAR REGION - M51.16 (PRIMARY) LUMBAGO WITH SCIATICA, RIGHT SIDE - M54.41 TREATMENT INTERVERTEBRAL DISC DISORDERS WITH RADICULOPATHY, LUMBAR REGION NOTES: TODAY, I SENT AN INCREASE OF CYMBALTA 60 MG DAILY TO PHARMACY. FOLLOW-UP IN THE CLINIC IN 4-6 WEEKS AFTER NERVE CONDUCTION STUDIES ARE COMPLETED. WILL EVALUATE AND DISCUSS TREATMENT OPTIONS AT THAT VISIT. TIME SPENT DURING TELEMED VISIT WAS APPROXIMATELY 12 MINUTES. OTHERS NOTES: NO VITALS OBTAINED DUE TO VIRTUAL VISIT. DISPOSITION & COMMUNICATION FOLLOW UP 6 WEEKS IN CLINIC (REASON: NCS/EMG LOWER EXTREMITIES -REVIEW/MED MGMNT) ELECTRONICALLY SIGNED BY FAITH MOURA ON 07/19/2019 AT 01:48 PM EDT DISCLAIMER : THIS IS A VISIT SUMMARY EXTRACTED FROM THE [employer] CHART. IT IS NOT A COPY OF THE [employer] PROGRESS NOTE. JAIDEN
== END ==
LOC: M TMPAIN 10:00 → M PAIN 10:00
PROVIDERS: ATTEND Nurse Practitioner Family
DX: M51.16 Intervertebral disc disorders with radiculopathy, lumbar region (principal); M54.41 Lumbago with sciatica, right side; Z79.899 Other long term (current) drug therapy; Z88.5 Allergy status to narcotic agent; Z91.040 Latex allergy status

== ENCOUNTER → 2019-08-14 | Outpatient (REF) | payer OTHER, MEDICAID ==
[2019-08-14 13:39] LABS: BILIRUBIN,DIRECT 0.2 MG/DL (0.0-0.2); BILIRUBIN,TOTAL 1.3 MG/DL (0.2-1.0); FREE T4 0.97 NG/DL (0.76-1.46); THYROID STIMULATING HORMONE 2.49 uIU/ML (0.358-3.740)
== END ==
LOC: M LAB REF 12:34
PROVIDERS: ATTEND Physician Assistant
DX: R17 Unspecified jaundice (principal)

== ENCOUNTER → 2019-09-09 | Outpatient (CLI) | payer OTHER ==
--- NOTE | 2019-09-11 01:41 | ECWPNPC ---
PATIENT NAME: SCARLETT COSBY : 1990 GENDER: FEMALE VISIT DATE: 09/09/2019 DISCHARGE DATE: 09/09/19 1434 VISIT LOCKED DATE TIME: PHYSICIAN: YULIYA JAMA RESOURCE: YULIYA JAMA REASON FOR APPOINTMENT 1. NCS/EMG LOWER EXTREMITIES -REVIEW/MED MGMNT HISTORY OF PRESENT ILLNESS GENERAL: HERE FOR FOLLOW-UP OF PERSISTENT LOW BACK PAIN. NERVE CONDUCTION STUDY DONE RECENTLY ORDERED BY DR. MCADAMS IS REVIEWED WITH PATIENT. NORMAL EMG OF THE LOWER EXTREMITY. COMPLAINING OF NEW AREA OF RIGHT LOW BACK PAIN. NOTICED THIS AFTER SHE TWISTED FUNNY A FEW WEEKS AGO. THIS IS THE WORST AREA OF PAIN. REVIEWED MRI OF THE LS-SPINE AND DISCUSS TREATMENT OPTIONS. -. FALL RISK SCREENING: SCREENING :NO FALLS REPORTED IN THE LAST YEAR PAIN SCREENING: PATIENT HAS A COMPLAINT OF ACUTE OR CHRONIC PAIN :YES LOCATION OF PAIN:LOW BACK, RIGHT HIP, LEG(S) INTENSITY OF PAIN (SCALE OF 1 TO 10):9 WHAT DOES YOUR PAIN FEEL LIKE:ACHING, BURNING, CONTINOUS, SHARP, STABBING DURATION:CONTINOUS PAIN IS INCREASED BY:ACTIVITIES, PROLONGED STANDING PAIN IS DECREASED BY:OTHERS RUBBING, APPLYING PRESSURE NURSING NOTE: -. PAIN CENTER INTAKE QUESTIONS: DO YOU HAVE A HISTORY OF MRSA? :NO DO YOU TAKE A BLOOD THINNERS? :NO DO YOU HAVE ANY BLEEDING DISORDERS? :YES SATTES SHE HAS HAD ANEMIA IN THE PAST ANY NEW NUMBNESS OR WEAKNESS IN YOUR LEGS OR ARMS? :YES INCREASED NUMBNESS IN RIGHT LEG BILATERAL HAND NUMBNESS AND TINGLING ANY PACEMAKER,DEFIBRILLATOR, OR DORSAL COLUMN STIMULATOR? :NO DO YOU HAVE ANY RASHES OR OPEN SORES? :NO ARE YOU ALLERGIC TO IV DYE? :NO ARE YOU DIABETIC? :YES ANY NEW PROBLEMS WITH YOUR MEDICATIONS? :NO HAVE YOU RECEIVED A VACCINE IN THE PAST 30 DAYS? :NO DO YOU PLAN TO RECEIVE A VACCINE IN THE NEXT 21 DAYS? :NO DO YOU NEED ANY PRESCRIPTION? :NO DO YOU TAKE ANY IMMUNOSUPPRESSIVE MEDICATIONS? :NO ANY HISTORY OF SEIZURES? :NO ANY HISTORY OF CARDIAC ISSUES OR EVENTS? :NO DO YOU HAVE SLEEP APNEA? :NO ANY RECENT HEAD INJURY? :NO DO YOU HAVE ANY NEW INFECTIONS? :NO IS THERE A CHANCE YOU COULD BE ? :NO ARE YOU BREAST FEEDING? :NO CURRENT MEDICATIONS TAKING TOPIRAMATE 50 MG TABLET 2 TABLETS ORALLY BEFORE BEDTIME TAKING TIZANIDINE HCL 2 MG TABLET 1 TABLET ORALLY TWICE DAILY NEEDED TAKING TRAZODONE HCL 100 MG TABLET 1/2-1 TAB ORALLY BEFORE BEDTIME NEEDED TAKING SUMATRIPTAN SUCCINATE 100 MG TABLET 1/2-1 TAB ORALLY AT ONSET OF HEADACHE -MAY REPEAT ONCE AFTER 2 HOURS. MAX 2 TABS/DAY TAKING GLYBURIDE 5 MG TABLET 1 TAB ORALLY BEFORE DINNER DAILY TAKING ACETAMINOPHEN 325 MG TABLET 2 TABS ORALLY EVERY 4-6 HRS NEEDED TAKING VITAMIN D (CHOLECALCIFEROL) 50 MCG (2000 UT) CAPSULE 1 CAPSULE ORALLY ONCE A DAY TAKING DULOXETINE HCL 60 MG CAPSULE DELAYED RELEASE PARTICLES 1 CAPSULE ORALLY ONCE A DAY TAKING QVAR REDIHALER 80 MCG/ACT AEROSOL BREATH ACTIVATED 1 PUFF INHALATION ONCE A DAY TAKING ALBUTEROL SULFATE 108 (90 BASE) MCG/ACT AEROSOL POWDER BREATH ACTIVATED 1 PUFF NEEDED INHALATION EVERY 4 HRS MEDICATION LIST REVIEWED AND RECONCILED WITH THE PATIENT PAST MEDICAL HISTORY CHRONIC TENSION-TYPE HEADACHES 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 NECK PAIN LOW BACK PAIN SPONDYLOSIS OF CERVICAL SPINE SKIN SENSATION DISTURBANCE MALAISE AND FATIGUE ASTHMA DEPRESSION, ANXIETY DIABETES ALLERGIES LATEX (FOR ALLERGY USE ONLY): RASH, HIVES,ITCHING - ALLERGY HYDROCODONE BITARTRATE: RASH, HIVES, ITCHING - ALLERGY SURGICAL HISTORY 2008,2016 CHOLECYSTECTOMY 2013 TONSILLECTOMY, ADENOIDECTOMY AGE 3 FAMILY HISTORY FATHER: ALIVE, ASTHMA, BACK AND NECK PROBLEMS MOTHER: ALIVE, CHF, TUMORS IN HER FEET,ASTHMA, TUMOR ON SPINE, BACK PROBLEMS, EDEMA IN LEGS, DEPRESSION, ANXIETY, DIAGNOSED WITH DIABETES, UNSPECIFIED HEART DISEASE SIBLINGS: ALIVE, SISTER HAS CHRONIC BACK PAIN, 2 BROTHERS AT [facility] - [facility]ALTH[facility]. SOCIAL HISTORY GENERAL: TOBACCO USE ARE YOU A:NONSMOKER LATEX QUESTIONNAIRE LATEX ALLERGY : HAVE YOU EVER DEVELOPED ANY TYPE OF REACTION AFTER HANDLING LATEX PRODUCTS SUCH RUBBER GLOVES, CONDOMS, DIAPHRAGMS, BALLOONS, SOCKS, OR UNDERWEAR?YES - PLEASE INDICATE : KNOWN LATEX ALLERGY-HIVES, RASH AND ITCHING DATE ASKED : 09/09/2019 ALCOHOL SCREENING DID YOU HAVE A DRINK CONTAINING ALCOHOL IN THE PAST YEAR?YES HOW OFTEN DID YOU HAVE SIX OR MORE DRINKS ON ONE OCCASION IN THE PAST YEAR?NEVER (0 POINTS) HOW MANY DRINKS DID YOU HAVE ON A TYPICAL DAY WHEN YOU WERE DRINKING IN THE PAST YEAR?1 OR 2 (0 POINTS) HOW OFTEN DID YOU HAVE A DRINK CONTAINING ALCOHOL IN THE PAST YEAR?MONTHLY OR LESS (1 POINT) POINTS1 INTERPRETATIONNEGATIVE RECREATIONAL DRUG USE DRUG USE?YES HOW OFTEN AND HOW MUCH? ADMITS TO OCCASSIONAL MARIJUANA CAFFEINE CAFFEINE USE?YES HOW OFTEN AND HOW MUCH? 2 LITERS OF DIET PEPSI A DAY ISLAM [id number] NONE LANGUAGE LANGUAGES SPOKEN:PASHTO EDUCATION LEVEL OF EDUCATION:HIGH SCHOOL LEARNING BARRIERS / SPECIAL NEEDS BARRIERS TO LEARNING?YES COMMENTS TAKES LONGER TO LEARN THINGS, NOT GOOD WITH MATH AND SOME SPELLING IS DIFFICULT, SOMETIMES NEEDS HELP WITH READING HEARING IMPAIRED?NO VISION IMPAIRED?YES COGNITIVELY IMPAIRED?YES SOMETIMES HAS SOMEONE HELP HER WITH READING WHEN FILLING OUT PAPERS :CORRECTIVE LENSES READINESS TO LEARN?YES LEARNING PREFERENCES?YES :DEMONSTRATION/VERBAL INSTRUCTION LEARNING CAPABILITIES PRESENT?YES EMOTIONAL BARRIERS?YES COMMENTS ANXIETY AND DEPRESSION SPECIAL DEVICES?YES :CANE RIGHT LEG OCCASSIONALLY GIVES OUT ON HER INFORMATION SECURITY ARCHITECT NEEDED?NO DOMESTIC VIOLENCE DO YOU FEEL SAFE IN YOUR ENVIRONMENT?YES OCCUPATION: UNEMPLOYED. DIET: CARBOHYDRATE CONTROLLED. EXERCISE: CHASING KIDS AND WORKS OUT WITH HER DAUGHTER. PAIN CLINIC PFS, CLERGY, PUBLIC HEALTH REFERRALS PFS REFERRAL NEEDED?NO CLERGY REFERRAL NEEDED?NO PUBLIC HEALTH REFERRAL NEEDED?NO HAS THE PATIENT BEEN EDUCATED REGARDING HIS/HER PLAN OF CARE?YES HAS THE PATIENT BEEN EDUCATED REGARDING PAIN, THE RISK FOR PAIN, THE IMPORTANCE OF EFFECTIVE PAIN MANAGEMENT, AND THE PAIN ASSESSMENT PROCESS?YES ADVANCE DIRECTIVE ADVANCE DIRECTIVE DISCUSSED WITH PATIENT:YES 06/07/2019 PT DOES NOT HAVE ANY ADVANCED DIRECTIVES AND SHE DECLINES INFORMATION ON HCP AT THIS. HOSPITALIZATION/MAJOR DIAGNOSTIC PROCEDURE SURGERIES REVIEW OF SYSTEMS CONSTITUTIONAL: ANY RECENT FEVER NO . CHILLS NO . WEIGHT CHANGE OF UNKNOWN REASONS NO . GASTROENTEROLOGY: NEW UNEXPLAINABLE CHANGES IN BOWEL CONTROL NO . CONSTIPATION NO . GENITOURINARY: ANY NEW CHANGE IN BLADDER CONTROL? NO . NEUROLOGY: NEW ONSET DIZZINESS OR NEUROLOGICAL CHANGES NOT MENTIONED NO . NEW NUMBNESS OR PAIN PATTERNS NOT MENTIONED AND PERTINENT TO TODAY'S VISIT NO . CARDIOLOGY: NEW CHEST PRESSURE NO . NEW CHEST PAIN NO . RESPIRATORY: UNEXPLAINABLE COUGH NO . NEW SHORTNESS OF BREATH NO . VITAL SIGNS WT 155.0 LBS, HT 52 IN, BMI 40.30 INDEX, BP 112/61 MM HG, HR 82 /MIN, RR 18 /MIN, TEMP 97.3 F, OXYGEN SAT % 100%, SAFE IN ENV? (Y/N) YES, NA INITIALS AW 1349, REVIEWED BY: NLJ. EXAMINATION GENERAL EXAMINATION: GENERAL ALERT,NO DISTRESS . PSYCH AFFECT NORMAL . LUNGS: LUNG SOUNDS ARE CLEAR . HEART: HEART RATE REGULAR . MUSCULOSKELETAL: MST 5/5 BILAT. LOWER EXTREMITIES . TRIGGER POINTS ELICITED WITH PALPATION OVER RIGHT LUMBAR PARASPINAL. PAIN IN THIS AREA IS AGGRAVATED WITH RANGE OF JOINT MOTION OF THE SPINE.. LUMBAR: TENDERNESS OVER RIGHT SIJ . DIAGNOSTIC TESTS REVIEWEDMRI L/S SPINE TO 04/17/2019. ASSESSMENTS MYALGIA, OTHER SITE - M79.18 (PRIMARY) TREATMENT MYALGIA, OTHER SITE NOTES: TRIGGER POINT INJECTION RIGHT LUMBAR PARASPINAL. PREVENTIVE MEDICINE PAIN CLINIC TEACHING: PROCEDURE TEACHING TRIGGER POINT INJECTION INFORMATION PRINTED AND REVIEWED WITH PATIENT. PATIENT VERBALIZES UNDERSTANDING, AND OF PREPROCEDURE INSTRUCTIONS REVIEWED. 09/09/2019 1430 NL. PROCEDURE CODES FA211 ESTABILISHED PATIENT [facility] FACILITY CHARGE DISPOSITION & COMMUNICATION FOLLOW UP POST PROCEDURE (REASON: TRIGGER POINT INJECTION RIGHT LUMBAR PARASPINAL) ELECTRONICALLY SIGNED BY FAITH MOURA ON 09/10/2019 AT 03:43 PM EDT DISCLAIMER : THIS IS A VISIT SUMMARY EXTRACTED FROM THE [employer] CHART. IT IS NOT A COPY OF THE [employer] PROGRESS NOTE. JAIDEN
== END ==
LOC: M PAIN 13:30
PROVIDERS: ATTEND Nurse Practitioner Family
DX: M79.18 Myalgia, other site (principal)

== ENCOUNTER → 2019-09-22 | Outpatient (CLI) | payer OTHER | LOC: M LABSMTC 11:28 | PROVIDERS: ATTEND Anesthesiology | DX: Z11.59 Encounter for screening for other viral diseases (principal) | CPT/HCPCS: C9803; U0003 ==

== ENCOUNTER → 2019-09-27 | Outpatient (CLI) | payer OTHER ==
[~2019-09-27] MED LIST changes: +BUPIVACAINE HCL 0.25% 10ML VIAL As Ordered ONE; +BUPIVACAINE HCL 0.25% 30ML VIAL As Ordered ONE; +diazePAM 5 MG TAB As Ordered ONE; +oxyCODONE 5MG TAB As Ordered ONE
--- NOTE | 2019-10-01 03:02 | ECWPNPC ---
PATIENT NAME: SCARLETT COSBY : 1990 GENDER: FEMALE VISIT DATE: 09/27/2019 DISCHARGE DATE: 09/27/19 1029 VISIT LOCKED DATE TIME: PHYSICIAN: JULIA MCADAMS MD RESOURCE: JULIA MCADAMS MD REASON FOR APPOINTMENT 1. TPI RIGHT LUMBAR PARASPINAL HISTORY OF PRESENT ILLNESS GENERAL: -. FALL RISK SCREENING: SCREENING :NO FALLS REPORTED IN THE LAST YEAR PAIN SCREENING: PATIENT HAS A COMPLAINT OF ACUTE OR CHRONIC PAIN :YES LOCATION OF PAIN:MID BACK, LOW BACK, RIGHT HIP, LEG(S), THIGH(S) RIGHT THIGH, HIP AND DOWN INTO RIGHT LEG INTENSITY OF PAIN (SCALE OF 1 TO 10):7 WHAT DOES YOUR PAIN FEEL LIKE:ACHING, BURNING, SHARP, STABBING, OTHER PRESSURE DURATION:CONTINOUS PAIN IS INCREASED BY:PROLONGED STANDING, OTHERS WALKING, SOMETIMES SITTING INCREASES PAIN PAIN IS DECREASED BY:OTHERS LYING FLAT, BENDING DOWN, APPLYING PRESSURE NURSING NOTE: -. PAIN CENTER INTAKE QUESTIONS: DO YOU HAVE A HISTORY OF MRSA? :NO DO YOU TAKE A BLOOD THINNERS? :NO DO YOU HAVE ANY BLEEDING DISORDERS? :NO ANY NEW NUMBNESS OR WEAKNESS IN YOUR LEGS OR ARMS? :NO ANY PACEMAKER,DEFIBRILLATOR, OR DORSAL COLUMN STIMULATOR? :NO DO YOU HAVE ANY RASHES OR OPEN SORES? :NO ARE YOU ALLERGIC TO IV DYE? :NO ARE YOU DIABETIC? :YES 175 FSBS ANY NEW PROBLEMS WITH YOUR MEDICATIONS? :NO HAVE YOU RECEIVED A VACCINE IN THE PAST 30 DAYS? :NO DO YOU PLAN TO RECEIVE A VACCINE IN THE NEXT 21 DAYS? :NO DO YOU TAKE ANY IMMUNOSUPPRESSIVE MEDICATIONS? :NO ANY HISTORY OF SEIZURES? :NO ANY HISTORY OF CARDIAC ISSUES OR EVENTS? :NO DO YOU HAVE SLEEP APNEA? :NO ANY RECENT HEAD INJURY? :NO DO YOU HAVE ANY NEW INFECTIONS? :NO IS THERE A CHANCE YOU COULD BE ? :NO ARE YOU BREAST FEEDING? :NO WHEN DID YOU LAST EAT? : 09/26/20191699 WHEN DID YOU LAST DRINK? : 09/26/20192099 WHAT DID YOU LAST DRINK? : WATER NAME OF PERSON DRIVING YOU HOME? : DO YOU HAVE ANY OTHER QUESTIONS OR CONCERNS? : - CURRENT MEDICATIONS TAKING TOPIRAMATE 50 MG TABLET 2 TABLETS ORALLY BEFORE BEDTIME, NOTES: 09/25/20192099 TAKING TIZANIDINE HCL 2 MG TABLET 1 TABLET ORALLY TWICE DAILY NEEDED, NOTES: 09/25/20192099 TAKING TRAZODONE HCL 100 MG TABLET 1/2-1 TAB ORALLY BEFORE BEDTIME NEEDED, NOTES: 09/25/20192099 TAKING SUMATRIPTAN SUCCINATE 100 MG TABLET 1/2-1 TAB ORALLY AT ONSET OF HEADACHE -MAY REPEAT ONCE AFTER 2 HOURS. MAX 2 TABS/DAY, NOTES: MONDAY TAKING ACETAMINOPHEN 325 MG TABLET 2 TABS ORALLY EVERY 4-6 HRS NEEDED, NOTES: NONE LATELY TAKING VITAMIN D (CHOLECALCIFEROL) 50 MCG (2000 UT) CAPSULE 1 CAPSULE ORALLY ONCE A DAY, NOTES: 09/25/2019 0800 TAKING DULOXETINE HCL 60 MG CAPSULE DELAYED RELEASE PARTICLES 1 CAPSULE ORALLY ONCE A DAY, NOTES: 09/25/2019 0900 TAKING QVAR REDIHALER 80 MCG/ACT AEROSOL BREATH ACTIVATED 1 PUFF INHALATION ONCE A DAY, NOTES: PRN TAKING ALBUTEROL SULFATE 108 (90 BASE) MCG/ACT AEROSOL POWDER BREATH ACTIVATED 1 PUFF NEEDED INHALATION EVERY 4 HRS, NOTES: 09/26/2019 0900 NOT-TAKING GLYBURIDE 5 MG TABLET 1 TAB ORALLY BEFORE DINNER DAILY MEDICATION LIST REVIEWED AND RECONCILED WITH THE PATIENT PAST MEDICAL HISTORY CHRONIC TENSION-TYPE HEADACHES 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 NECK PAIN LOW BACK PAIN SPONDYLOSIS OF CERVICAL SPINE SKIN SENSATION DISTURBANCE MALAISE AND FATIGUE ASTHMA DEPRESSION, ANXIETY DIABETES ALLERGIES LATEX (FOR ALLERGY USE ONLY): RASH, HIVES,ITCHING - ALLERGY HYDROCODONE BITARTRATE: RASH, HIVES, ITCHING - ALLERGY SURGICAL HISTORY 2008,2016 CHOLECYSTECTOMY 2013 TONSILLECTOMY, ADENOIDECTOMY AGE 3 FAMILY HISTORY FATHER: ALIVE, ASTHMA, BACK AND NECK PROBLEMS MOTHER: ALIVE, CHF, TUMORS IN HER FEET,ASTHMA, TUMOR ON SPINE, BACK PROBLEMS, EDEMA IN LEGS, DEPRESSION, ANXIETY, DIAGNOSED WITH UNSPECIFIED HEART DISEASE, DIABETES SIBLINGS: ALIVE, SISTER HAS CHRONIC BACK PAIN, 2 BROTHERS AT [facility] - HEALTHY. SOCIAL HISTORY GENERAL: TOBACCO USE ARE YOU A:NONSMOKER LATEX QUESTIONNAIRE LATEX ALLERGY : HAVE YOU EVER DEVELOPED ANY TYPE OF REACTION AFTER HANDLING LATEX PRODUCTS SUCH RUBBER GLOVES, CONDOMS, DIAPHRAGMS, BALLOONS, SOCKS, OR UNDERWEAR?YES - PLEASE INDICATE : KNOWN LATEX ALLERGY-HIVES, RASH AND ITCHING DATE ASKED : 09/27/2019 ALCOHOL SCREENING DID YOU HAVE A DRINK CONTAINING ALCOHOL IN THE PAST YEAR?YES HOW OFTEN DID YOU HAVE SIX OR MORE DRINKS ON ONE OCCASION IN THE PAST YEAR?NEVER (0 POINTS) HOW MANY DRINKS DID YOU HAVE ON A TYPICAL DAY WHEN YOU WERE DRINKING IN THE PAST YEAR?1 OR 2 (0 POINTS) HOW OFTEN DID YOU HAVE A DRINK CONTAINING ALCOHOL IN THE PAST YEAR?MONTHLY OR LESS (1 POINT) POINTS1 INTERPRETATIONNEGATIVE RECREATIONAL DRUG USE DRUG USE?YES HOW OFTEN AND HOW MUCH? ADMITS TO OCCASSIONAL MARIJUANA CAFFEINE CAFFEINE USE?YES HOW OFTEN AND HOW MUCH? 2 LITERS OF DIET PEPSI A DAY MORMONISM [id number] NONE LANGUAGE LANGUAGES SPOKEN:[id number] EDUCATION LEVEL OF EDUCATION:HIGH SCHOOL LEARNING BARRIERS / SPECIAL NEEDS BARRIERS TO LEARNING?YES COMMENTS TAKES LONGER TO LEARN THINGS, NOT GOOD WITH MATH AND SOME SPELLING IS DIFFICULT, SOMETIMES NEEDS HELP WITH READING HEARING IMPAIRED?NO VISION IMPAIRED?YES COGNITIVELY IMPAIRED?YES SOMETIMES HAS SOMEONE HELP HER WITH READING WHEN FILLING OUT PAPERS :CORRECTIVE LENSES READINESS TO LEARN?YES LEARNING PREFERENCES?YES :DEMONSTRATION/VERBAL INSTRUCTION LEARNING CAPABILITIES PRESENT?YES EMOTIONAL BARRIERS?YES COMMENTS ANXIETY AND DEPRESSION SPECIAL DEVICES?YES :CANE RIGHT LEG OCCASSIONALLY GIVES OUT ON HER SATELLITE COMMUNICATIONS OPERATOR NEEDED?NO DOMESTIC VIOLENCE DO YOU FEEL SAFE IN YOUR ENVIRONMENT?YES OCCUPATION: UNEMPLOYED. DIET: CARBOHYDRATE CONTROLLED. EXERCISE: CHASING KIDS AND WORKS OUT WITH HER DAUGHTER. PAIN CLINIC PFS, CLERGY, PUBLIC HEALTH REFERRALS PFS REFERRAL NEEDED?NO CLERGY REFERRAL NEEDED?NO PUBLIC HEALTH REFERRAL NEEDED?NO HAS THE PATIENT BEEN EDUCATED REGARDING HIS/HER PLAN OF CARE?YES HAS THE PATIENT BEEN EDUCATED REGARDING PAIN, THE RISK FOR PAIN, THE IMPORTANCE OF EFFECTIVE PAIN MANAGEMENT, AND THE PAIN ASSESSMENT PROCESS?YES ADVANCE DIRECTIVE ADVANCE DIRECTIVE DISCUSSED WITH PATIENT:YES 06/07/2019 PT DOES NOT HAVE ANY ADVANCED DIRECTIVES AND SHE DECLINES INFORMATION ON HCP AT THIS. HOSPITALIZATION/MAJOR DIAGNOSTIC PROCEDURE SURGERIES VITAL SIGNS WT 151.4 LBS, HT 52 IN, BMI 39.36 INDEX, BP 113/78 MM HG, HR 94 /MIN, RR 16 /MIN, TEMP 97.5 F, OXYGEN SAT % 100%, BLOOD GLUCOSE LEVEL 175, SAFE IN ENV? (Y/N) YES, NA INITIALS WA 09:05, REVIEWED BY: SOY. EXAMINATION GENERAL EXAMINATION: THE PATIENT IS ALERT, ORIENTED TIMES THREE AND COOPERATIVE. HEART SHOWS REGULAR RHYTHM, NO MURMURS AND NO GALLOPS. LUNGS ARE CLEAR TO AUSCULTATION. ASSESSMENTS MYALGIA, OTHER SITE - M79.18 (PRIMARY) TREATMENT MYALGIA, OTHER SITE MEDICATION: VALIUM TAB 5MG ORALLY (DIAZEPAM)BRITNEY HOOPER RN 09/27/2019 9:19:18 AM > VERIFIED HI CORDOVA 09/27/2019 9:20:20 AM > LOT# [id number] EXP: 02/2020 HI CORDOVA 09/27/2019 9:26:34 AM > ADMINISTERED MEDICATION: OXYCODONE HCL TAB 5MG ORALLY BRITNEY HOOPER RN 09/27/2019 9:19:36 AM > VERIFIED HI CORDOVA 09/27/2019 9:21:50 AM > LOT# [id number] EXP: 04/2021 HI CORDOVA 09/27/2019 9:26:51 AM > ADMINISTERED PROCEDURES PAIN NURSING RECORD PRE-PROCEDURE IV SITE N/A, PRE-PROCEDURE ORAL MEDICATIONS OXYCODONE 5 MG PO AT 0926 BY Lizandro MCKNIGHT RN VALIUM 5 MG PO AT 0926 BY Lizandro MCKNIGHT RN PROCEDURE IN ROOM 0900, PHYSICIAN IN ROOM 1007, START 1011, FINISH 1015, PHYSICIAN OUT OF ROOM 1016, OUT OF ROOM 1030, STEROID N/A, O2 RA, ECG N/A, PATIENT SHIELDED NO, SAFETY STRAP NO, PREP ALCOHOL BY DR MCADAMS, IV INFUSED N/A, DRESSING TEGADERM BY Sj AN RN LOC: HI CORDOVA 09/27/2019 10:12:48 AM > , 1. ALERT, ORIENTED RESP: HI CORDOVA 09/27/2019 10:12:52 AM > , 1. REGULAR, NO DYSPNEA COLOR: HI CORDOVA 09/27/2019 10:12:55 AM > , 1. PINK SKIN: HI CORDOVA 09/27/2019 10:12:58 AM > , 1. WARM, DRY POSITION: HI CORDOVA 09/27/2019 10:13:02 AM > , 1. PRONE VITALS: HI CORDOVA 09/27/2019 10:26:03 AM > 118/06-38-51-100% DISCHARGE: POST PAIN 0/10- LOWER RIGHT BACK, DRESSING SITE DRY AND INTACT, IV N/A, GAIT STEADY, TEACHING COMPLETED, PATIENT ACKNOWLEDGES UNDERSTANDING YES, PATIENT DISCHARGED AT 1030 PN TRIGGER POINT INJECTION NO STEROIDS PRE PROCEDURE DIAGNOSIS 1. MYALGIA 2. PAIN AT RIGHT LOWER BACK AREA POST PROCEDURE DIAGNOSIS 1. MYALGIA 2. PAIN AT RIGHT LOWER BACK AREA PROCEDURE TRIGGER POINT INJECTION AT RIGHT LOWER BACK AREA SURGEON DR. JULIA MCADAMS CARD SELLER NONE ANESTHESIA LOCAL PRE PROCEDURE NOTE THE PATIENT WITH HISTORY OF CHRONIC PAIN AT RIGHT LOWER BACK AREA. I EVALUATED THE PATIENT AND REVIEWED THE CHART. THERE IS EVIDENCE OF BANDS OF TISSUE WITH RESTRICTION OF MOVEMENT AND PRESENCE OF TRIGGER POINT AT THE RIGHT LOWER BACK AREA. I WENT OVER THE RISKS, ALTERNATIVES, AND BENEFITS ASSOCIATED WITH THIS PROCEDURE. THE PATIENT WOULD LIKE TO PROCEED AND GAVE CONSENT TO PERFORM THE PROCEDURE. THE PATIENT DENIES UNEXPLAINABLE WEIGHT LOSS, FEVER, CHILLS, OR NEW CHANGES IN URINARY OR BOWEL CONTROL. THE PATIENT IS COVID-19 NEGATIVE DESCRIPTION OF PROCEDURE THE PATIENT WAS BROUGHT TO THE PROCEDURE ROOM AND PLACED IN THE SITTING POSITION. THE AREA WAS CLEANED WITH ALCOHOL. THE PROCEDURE WAS DONE USING ASEPTIC STERILE TECHNIQUES. I CHECKED LATERALITY AND THE LEVEL WHERE THE PROCEDURE WAS GOING TO BE PERFORMED WITH THE PATIENT AND THE SUPPORTING STAFF AT THE MOMENT OF THE TIME OUT IN THE PROCEDURE ROOM. USING A 25-GAUGE NEEDLE, TRIGGER POINTS WERE INJECTED INTO THE RIGHT LOWER BACK AREA WITH A TOTAL OF 40 ML OF BUPIVACAINE 0.25%. AGREED WITH THE PATIENT THE PROCEDURE WAS DONE WITHOUT STEROIDS. THERE WAS NO EVIDENCE OF BLOOD, PARESTHESIA OR CEREBROSPINAL FLUID DURING THE PROCEDURE. THE PATIENT WAS SENT TO THE RECOVERY ROOM. THE PATIENT WAS MOVING THE EXTREMITIES AND DOING WELL. THERE WAS NO COMPLICATION DURING THE PROCEDURE. EBL LESS THAN 5 ML. POST PROCEDURE NOTE DEPENDING ON THE RESULTS OF THIS INJECTION, CONSIDER DOING A TRIGGER POINT INJECTION WITH STEROIDS OR DOING AND EPIDURAL STEROID INJECTION. THE PROCEDURE DONE WAS DISCUSSED WITH THE PATIENT. THE PATIENT WILL BE SEEN IN A FOLLOW UP IN THE NEXT FEW WEEKS. I AM LOOKING FOR LONG LASTING PAIN RELIEF FOR THE PATIENT WITH THIS INTERVENTION. INSTRUCTIONS WERE GIVEN, QUESTIONS WERE ANSWERED, AND THE PATIENT EXPRESSED UNDERSTANDING AND AGREES WITH THE PLAN. I, LUTHER PHELPS, DOCUMENTED THE ABOVE INFORMATION ACTING A SCRIBE FOR DR. MCADMAS. I HAVE REVIEWED THE ABOVE DOCUMENT, WRITTEN BY LUTHER PHELPS, ESTIMATING MANAGER, AND I VERIFY THAT IT IS ACCURATE PROCEDURE CODES 79314 INJ TRIGGER POINT 03/14 MUSCL DISPOSITION & COMMUNICATION FOLLOW UP F/UP WITH SUPERVISOR PIPELINES (REASON: POST TPI RIGHT LUMBAR) ELECTRONICALLY SIGNED BY JULIA MCADAMS MD, MD ON 09/30/2019 AT 10:12 AM EDT DISCLAIMER : THIS IS A VISIT SUMMARY EXTRACTED FROM THE [employer] CHART. IT IS NOT A COPY OF THE [employer] PROGRESS NOTE. JAIDEN
== END ==
LOC: M PAIN 09:15
PROVIDERS: ATTEND Anesthesiology
DX: M79.18 Myalgia, other site (principal)

== ENCOUNTER → 2019-10-11 | Outpatient (POV) | payer OTHER ==
[~2019-10-11] MED LIST changes: -BUPIVACAINE HCL 0.25% 10ML VIAL As Ordered ONE; -BUPIVACAINE HCL 0.25% 30ML VIAL As Ordered ONE; -diazePAM 5 MG TAB As Ordered ONE; -oxyCODONE 5MG TAB As Ordered ONE
== END ==
LOC: M PAIN 10:45
PROVIDERS: ATTEND Nurse Practitioner Family
DX: M79.18 Myalgia, other site (principal)

== ENCOUNTER → 2019-12-30 | Outpatient (REF) | payer OTHER, MEDICAID ==
[2019-12-30 13:54] LABS: BASO # 0.1 10^3/uL (0.0-0.2); BASO % 0.7 % (0.0-1.0); EOS # 0.1 10^3/uL (0.0-0.5); EOS % 1.3 % (0.0-3.0); HEMATOCRIT 34.8 % (36.0-47.0); HEMOGLOBIN 12.6 g/dl (12.0-15.5); LYMPH # 1.4 10^3/uL (1.5-5.0); MEAN CORPUSCULAR HEMOGLOBIN 34.2 pg (27.0-33.0); MEAN CORPUSCULAR HGB CONC 36.2 g/dl (32.0-36.5); MEAN CORPUSCULAR VOLUME 94.6 fl (80.0-96.0); MONO # 0.4 10^3/uL (0.0-0.8); MONO % 5.9 % (0.0-5.0); NEUTROPHILS # 4.9 10^3/uL (1.5-8.5); PLATELET COUNT, AUTOMATED 138 10^3/uL (150-450); RED BLOOD COUNT 3.68 10^6/uL (4.00-5.40); WHITE BLOOD COUNT 6.8 10^3/uL (4.0-10.0)
[2019-12-30 14:10] LABS: HEMOGLOBIN A1c 4.7 %
[2019-12-30 14:31] LABS: ALT/SGPT 11 U/L (12-78); BILIRUBIN,TOTAL 0.6 MG/DL (0.2-1.0); BLOOD UREA NITROGEN 13 MG/DL (7-18); CALCIUM LEVEL 8.5 MG/DL (8.5-10.1); CARBON DIOXIDE LEVEL 22 MEQ/L (21-32); CHLORIDE LEVEL 112 MEQ/L (98-107); CHOLESTEROL LEVEL 71 MG/DL (<200); CREATININE FOR GFR 0.85 MG/DL (0.55-1.30); GLOMERULAR FILTRATION RATE > 60.0 (>60); GLUCOSE, FASTING 268 MG/DL (70-100); HDL CHOLESTEROL 20 MG/DL (>40); LDL CHOLESTEROL 24 MG/DL (<100); NON-HDL-C 51 MG/DL; POTASSIUM SERUM 4.8 MEQ/L (3.5-5.1); SODIUM LEVEL 137 MEQ/L (136-145); TOTAL 25(OH) VITAMIN D 17.7 NG/ML (30.0-100.0); TOTAL PROTEIN 6.7 GM/DL (6.4-8.2); TRIGLYCERIDES LEVEL 133 MG/DL (<150)
== END ==
LOC: M LAB REF 12:59
PROVIDERS: ATTEND Nurse Practitioner Family
DX: Z13.9 Encounter for screening, unspecified (principal); R94.6 Abnormal results of thyroid function studies; R17 Unspecified jaundice; E55.9 Vitamin D deficiency, unspecified; M19.90 Unspecified osteoarthritis, unspecified site; M54.5 Low back pain; E11.9 Type 2 diabetes mellitus without complications

== ENCOUNTER → 2020-01-07 | Outpatient (CLI) | payer OTHER ==
--- NOTE | 2020-01-14 00:31 | ECWPNPC ---
PATIENT NAME: SCARLETT COSBY : 1990 GENDER: FEMALE VISIT DATE: 01/07/2020 DISCHARGE DATE: 01/07/20 1031 VISIT LOCKED DATE TIME: PHYSICIAN: YULIYA JAMA RESOURCE: YULIYA JAMA REASON FOR APPOINTMENT 1. NBP 30 MIN-NECK HISTORY OF PRESENT ILLNESS DEPRESSION SCREENING: PHQ-2 (2015 EDITION) LITTLE INTEREST OR PLEASURE IN DOING THINGS?NOT AT ALL FEELING DOWN, DEPRESSED, OR HOPELESS?NOT AT ALL TOTAL SCORE0 GENERAL: PATIENT IS BEING SEEN TODAY FOR NEW BODY PART/CHRONIC PAIN. USUALLY FOLLOWS WITH US FOR CHRONIC LOW BACK PAIN. CHIEF AREA OF PAIN IS NECK AND UPPER BACK. LONG HISTORY OF STIFF NECK. DENIES PRECIPITATING EVENT. PAIN IS AGGRAVATED WITH RANGE OF JOINT MOTION OF THE NECK AND ARMS. PAIN HAS BECOME UNBEARABLE IN THIS REGION OVER THE PAST 6 MONTHS. REVIEWED MRI OF THE CERVICAL SPINE AND NERVE CONDUCTION STUDIES DONE OF THE UPPER EXTREMITIES. DISCUSSED TREATMENT PLAN. -. FALL RISK SCREENING: SCREENING :NO FALLS REPORTED IN THE LAST YEAR FELL INN OCTOBER, WAS AT [facility] LEG FEELS LIKE A RYDER IN HER LEG HAS TROUBLE WALKING AT TIMES PAIN SCREENING: PATIENT HAS A COMPLAINT OF ACUTE OR CHRONIC PAIN :YES LOCATION OF PAIN:NECK INTENSITY OF PAIN (SCALE OF 1 TO 10):6 WHAT DOES YOUR PAIN FEEL LIKE:SHARP, STABBING DURATION:CONTINOUS PAIN IS INCREASED BY:ACTIVITIES MOVING SHOULDERS AND MOVING HEAD HURTS THE NECK MAKES THE PAIN WORSE PAIN IS DECREASED BY:USE OF PAIN MEDICATIONS NURSING NOTE: -. PAIN CENTER INTAKE QUESTIONS: DO YOU HAVE A HISTORY OF MRSA? :NO DO YOU TAKE A BLOOD THINNERS? :NO DO YOU HAVE ANY BLEEDING DISORDERS? :NO ANY NEW NUMBNESS OR WEAKNESS IN YOUR LEGS OR ARMS? :YES ARMS, HANDS AND RIGHT LEG ANY PACEMAKER,DEFIBRILLATOR, OR DORSAL COLUMN STIMULATOR? :NO DO YOU HAVE ANY RASHES OR OPEN SORES? :NO ARE YOU ALLERGIC TO IV DYE? :NO ARE YOU DIABETIC? :YES ANY NEW PROBLEMS WITH YOUR MEDICATIONS? :NO HAVE YOU RECEIVED A VACCINE IN THE PAST 30 DAYS? :YES FLU VAC, YESTURDAY 01/06/2020 DO YOU PLAN TO RECEIVE A VACCINE IN THE NEXT 21 DAYS? :NO DO YOU NEED ANY PRESCRIPTION? :NO DO YOU TAKE ANY IMMUNOSUPPRESSIVE MEDICATIONS? :NO IS THERE A CHANCE YOU COULD BE ? :NO ARE YOU BREAST FEEDING? :NO CURRENT MEDICATIONS TAKING TOPIRAMATE 50 MG TABLET 2 TABLETS ORALLY BEFORE BEDTIME, NOTES: 09/25/20192099 TAKING TIZANIDINE HCL 2 MG TABLET 1 TABLET ORALLY TWICE DAILY NEEDED, NOTES: 09/25/20192099 TAKING TRAZODONE HCL 100 MG TABLET 1/2-1 TAB ORALLY BEFORE BEDTIME NEEDED, NOTES: 09/25/20192099 TAKING SUMATRIPTAN SUCCINATE 100 MG TABLET 1/2-1 TAB ORALLY AT ONSET OF HEADACHE -MAY REPEAT ONCE AFTER 2 HOURS. MAX 2 TABS/DAY, NOTES: MONDAY TAKING ACETAMINOPHEN 325 MG TABLET 2 TABS ORALLY EVERY 4-6 HRS NEEDED, NOTES: NONE LATELY TAKING VITAMIN D (CHOLECALCIFEROL) 50 MCG (2000 UT) CAPSULE 1 CAPSULE ORALLY ONCE A DAY, NOTES: 09/25/2019 08 TAKING QVAR REDIHALER 80 MCG/ACT AEROSOL BREATH ACTIVATED 1 PUFF INHALATION ONCE A DAY, NOTES: PRN TAKING ALBUTEROL SULFATE 108 (90 BASE) MCG/ACT AEROSOL POWDER BREATH ACTIVATED 1 PUFF NEEDED INHALATION EVERY 4 HRS, NOTES: 09/26/2019 09 TAKING DULOXETINE HCL 60 MG CAPSULE DELAYED RELEASE PARTICLES 1 CAPSULE ORALLY ONCE A DAY, NOTES: 09/25/2019 09 NOT-TAKING GLYBURIDE 5 MG TABLET 1 TAB ORALLY BEFORE DINNER DAILY MEDICATION LIST REVIEWED AND RECONCILED WITH THE PATIENT PAST MEDICAL HISTORY CHRONIC TENSION-TYPE HEADACHES 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 NECK PAIN LOW BACK PAIN SPONDYLOSIS OF CERVICAL SPINE SKIN SENSATION DISTURBANCE MALAISE AND FATIGUE ASTHMA DEPRESSION, ANXIETY DIABETES ALLERGIES LATEX (FOR ALLERGY USE ONLY): RASH, HIVES,ITCHING - ALLERGY HYDROCODONE BITARTRATE: RASH, HIVES, ITCHING - ALLERGY SURGICAL HISTORY 2008,2016 CHOLECYSTECTOMY 2013 TONSILLECTOMY, ADENOIDECTOMY AGE 3 FAMILY HISTORY FATHER: ALIVE, ASTHMA, BACK AND NECK PROBLEMS MOTHER: ALIVE, CHF, TUMORS IN HER FEET,ASTHMA, TUMOR ON SPINE, BACK PROBLEMS, EDEMA IN LEGS, DEPRESSION, ANXIETY, DIAGNOSED WITH UNSPECIFIED HEART DISEASE, DIABETES SIBLINGS: ALIVE, SISTER HAS CHRONIC BACK PAIN, 2 BROTHERS AT 2DAUGHTER(S) - HEALTHY. SOCIAL HISTORY GENERAL: TOBACCO USE ARE YOU A:NONSMOKER LATEX QUESTIONNAIRE LATEX ALLERGY : HAVE YOU EVER DEVELOPED ANY TYPE OF REACTION AFTER HANDLING LATEX PRODUCTS SUCH RUBBER GLOVES, CONDOMS, DIAPHRAGMS, BALLOONS, SOCKS, OR UNDERWEAR?YES - PLEASE INDICATE : KNOWN LATEX ALLERGY-HIVES, RASH AND ITCHING DATE ASKED : 01/07/2020 ALCOHOL SCREENING DID YOU HAVE A DRINK CONTAINING ALCOHOL IN THE PAST YEAR?YES HOW OFTEN DID YOU HAVE SIX OR MORE DRINKS ON ONE OCCASION IN THE PAST YEAR?NEVER (0 POINTS) HOW MANY DRINKS DID YOU HAVE ON A TYPICAL DAY WHEN YOU WERE DRINKING IN THE PAST YEAR?1 OR 2 (0 POINTS) HOW OFTEN DID YOU HAVE A DRINK CONTAINING ALCOHOL IN THE PAST YEAR?MONTHLY OR LESS (1 POINT) POINTS1 INTERPRETATIONNEGATIVE RECREATIONAL DRUG USE DRUG USE?YES HOW OFTEN AND HOW MUCH? ADMITS TO OCCASSIONAL MARIJUANA CAFFEINE CAFFEINE USE?YES HOW OFTEN AND HOW MUCH? 2 LITERS OF DIET PEPSI A DAY ALEVISM [id number] NONE LANGUAGE LANGUAGES SPOKEN:ALBANIAN EDUCATION LEVEL OF EDUCATION:HIGH SCHOOL LEARNING BARRIERS / SPECIAL NEEDS BARRIERS TO LEARNING?YES COMMENTS TAKES LONGER TO LEARN THINGS, NOT GOOD WITH MATH AND SOME SPELLING IS DIFFICULT, SOMETIMES NEEDS HELP WITH READING HEARING IMPAIRED?NO VISION IMPAIRED?YES COGNITIVELY IMPAIRED?YES SOMETIMES HAS SOMEONE HELP HER WITH READING WHEN FILLING OUT PAPERS :CORRECTIVE LENSES READINESS TO LEARN?YES LEARNING PREFERENCES?YES :DEMONSTRATION/VERBAL INSTRUCTION LEARNING CAPABILITIES PRESENT?YES EMOTIONAL BARRIERS?YES COMMENTS ANXIETY AND DEPRESSION SPECIAL DEVICES?YES :CANE RIGHT LEG OCCASSIONALLY GIVES OUT ON HER LEAD MANUFACTURING ENGINEER NEEDED?NO DOMESTIC VIOLENCE DO YOU FEEL SAFE IN YOUR ENVIRONMENT?YES OCCUPATION: UNEMPLOYED. DIET: CARBOHYDRATE CONTROLLED. EXERCISE: CHASING KIDS AND WORKS OUT WITH HER DAUGHTER. PAIN CLINIC PFS, CLERGY, PUBLIC HEALTH REFERRALS PFS REFERRAL NEEDED?NO CLERGY REFERRAL NEEDED?NO PUBLIC HEALTH REFERRAL NEEDED?NO HAS THE PATIENT BEEN EDUCATED REGARDING HIS/HER PLAN OF CARE?YES HAS THE PATIENT BEEN EDUCATED REGARDING PAIN, THE RISK FOR PAIN, THE IMPORTANCE OF EFFECTIVE PAIN MANAGEMENT, AND THE PAIN ASSESSMENT PROCESS?YES ADVANCE DIRECTIVE ADVANCE DIRECTIVE DISCUSSED WITH PATIENT:YES 06/07/2019 PT DOES NOT HAVE ANY ADVANCED DIRECTIVES AND SHE DECLINES INFORMATION ON HCP AT THIS. HOSPITALIZATION/MAJOR DIAGNOSTIC PROCEDURE SURGERIES REVIEW OF SYSTEMS CONSTITUTIONAL: ANY RECENT FEVER NO . CHILLS NO . WEIGHT CHANGE OF UNKNOWN REASONS NO . GASTROENTEROLOGY: NEW UNEXPLAINABLE CHANGES IN BOWEL CONTROL NO . CONSTIPATION NO . GENITOURINARY: ANY NEW CHANGE IN BLADDER CONTROL? NO . NEUROLOGY: NEW ONSET DIZZINESS OR NEUROLOGICAL CHANGES NOT MENTIONED NO . NEW NUMBNESS OR PAIN PATTERNS NOT MENTIONED AND PERTINENT TO TODAY'S VISIT NO . CARDIOLOGY: NEW CHEST PRESSURE NO . NEW CHEST PAIN NO . RESPIRATORY: UNEXPLAINABLE COUGH NO . NEW SHORTNESS OF BREATH NO . VITAL SIGNS WT 152 LBS, HT 52 IN, BMI 39.52 INDEX, BP 127/76 MM HG, HR 111 /MIN, RR 16 /MIN, TEMP 95.7 F, OXYGEN SAT % 100%, SAFE IN ENV? (Y/N) YES, NA INITIALS NM 09:56, REVIEWED BY: JEAN. EXAMINATION GENERAL EXAMINATION: GENERALAWAKE,ALERT ,PLEAASANT . PSYCHAFFECT NORMAL . LUNGS:LUNG ALMEIDA ARE CLEAR TO AUSCULTATION BILATERALLY. GOOD MOVEMENT OF AIR . HEART:S1, S2 IN A REGULAR RATE AND RHYTHM. NO SIGNIFICANT MURMURS, RUBS OR GALLOPS NOTED . CERVICAL:TRIGGER POINTS: CERVICAL AND TRAPEZIUS BILAT..PAIN IS AGGREVATED WITH ROJM NECK. ASSESSMENTS MYALGIA OF MUSCLE OF NECK - M79.18 (PRIMARY) TREATMENT MYALGIA OF MUSCLE OF NECK NOTES: TRIGGER POINT INJECTION BILATERAL NECK AND UPPER BACK PT 2 TIMES A WEEK 6 WEEKS FOR MYALGIA MUSCLES OF THE NECK -MYOFASCIAL RELEASE. REFERRAL TO:PHYSICAL THERAPIST REASON:2XWK X 6 WKS,MYOFASCIAL RELEASE PROCEDURE CODES FA211 ESTABILISHED PATIENT [facility] CHARGE DISPOSITION & COMMUNICATION FOLLOW UP POSTPROCEDURE (REASON: TRIGGER POINT INJECTION BILATERAL NECK AND UPPER BACK) ELECTRONICALLY SIGNED BY FAITH MOURA ON 01/13/2020 AT 11:55 AM EST DISCLAIMER : THIS IS A VISIT SUMMARY EXTRACTED FROM THE [employer] CHART. IT IS NOT A COPY OF THE [employer] PROGRESS NOTE. JAIDEN
== END ==
LOC: M PAIN 10:00
PROVIDERS: ATTEND Nurse Practitioner Family
DX: M79.18 Myalgia, other site (principal); G44.221 Chronic tension-type headache, intractable; J45.909 Unspecified asthma, uncomplicated; F32.9 Major depressive disorder, single episode, unspecified; F41.9 Anxiety disorder, unspecified; M47.812 Spondylosis without myelopathy or radiculopathy, cervical region; E11.9 Type 2 diabetes mellitus without complications; Z79.899 Other long term (current) drug therapy; Z88.5 Allergy status to narcotic agent; Z91.040 Latex allergy status

== ENCOUNTER → 2020-01-15 | Outpatient (CLI) | payer OTHER | LOC: M LABSMTC 10:05 | PROVIDERS: ATTEND Anesthesiology | DX: Z20.828 Contact with and (suspected) exposure to other viral communicable diseases (principal) | CPT/HCPCS: C9803; U0003 ==

== ENCOUNTER → 2020-01-20 | Outpatient (CLI) | payer OTHER ==
[~2020-01-20] MED LIST changes: +BUPIVACAINE HCL 0.25% 10ML VIAL As Ordered ONE; +BUPIVACAINE HCL 0.25% 30ML VIAL As Ordered ONE; +TRIAMCINOLONE ACETONIDE SUSP 40 MG/ML VIAL (J3301) As Ordered ONE; +diazePAM 5 MG TAB As Ordered ONE; +oxyCODONE 5MG TAB As Ordered ONE
--- NOTE | 2020-01-28 00:57 | ECWPNPC ---
PATIENT NAME: SCARLETT COSBY : 1990 GENDER: FEMALE VISIT DATE: 01/20/2020 DISCHARGE DATE: 01/20/20 1030 VISIT LOCKED DATE TIME: PHYSICIAN: JULIA MCADAMS MD RESOURCE: JULIA MCADAMS MD REASON FOR APPOINTMENT 1. TRIGGER POINT INJECTION BILATERAL NECK AND UPPER BACK HISTORY OF PRESENT ILLNESS PAIN CENTER INTAKE QUESTIONS: DO YOU HAVE A HISTORY OF MRSA? :NO DO YOU TAKE A BLOOD THINNERS? :NO DO YOU HAVE ANY BLEEDING DISORDERS? :NO ANY NEW NUMBNESS OR WEAKNESS IN YOUR LEGS OR ARMS? :NO ANY PACEMAKER,DEFIBRILLATOR, OR DORSAL COLUMN STIMULATOR? :NO DO YOU HAVE ANY RASHES OR OPEN SORES? :NO ARE YOU ALLERGIC TO IV DYE? :NO ARE YOU DIABETIC? :YES ANY NEW PROBLEMS WITH YOUR MEDICATIONS? :NO HAVE YOU RECEIVED A VACCINE IN THE PAST 30 DAYS? :YES IF SO WHAT VACCINE AND WHEN? FLU VACCINE 2 WEEKSA AGO DO YOU PLAN TO RECEIVE A VACCINE IN THE NEXT 21 DAYS? :NO DO YOU NEED ANY PRESCRIPTION? :NO DO YOU TAKE ANY IMMUNOSUPPRESSIVE MEDICATIONS? :NO ANY HISTORY OF SEIZURES? :NO ANY HISTORY OF CARDIAC ISSUES OR EVENTS? :NO DO YOU HAVE SLEEP APNEA? :NO ANY RECENT HEAD INJURY? :NO DO YOU HAVE ANY NEW INFECTIONS? :NO IS THERE A CHANCE YOU COULD BE ? :NO ARE YOU BREAST FEEDING? :NO WHEN DID YOU LAST EAT? : 01/19/20202029 WHEN DID YOU LAST DRINK? : 01/19/20202029 WHAT DID YOU LAST DRINK? : PEPSI NAME OF PERSON DRIVING YOU HOME? : - NATAN DO YOU HAVE ANY OTHER QUESTIONS OR CONCERNS? : - GENERAL: -. FALL RISK SCREENING: SCREENING :ONE FALL WITH INJURY IN THE PAST YEAR PAIN SCREENING: PATIENT HAS A COMPLAINT OF ACUTE OR CHRONIC PAIN :YES LOCATION OF PAIN:NECK INTENSITY OF PAIN (SCALE OF 1 TO 10):8 WHAT DOES YOUR PAIN FEEL LIKE:SHARP, STABBING DURATION:CONSTANT PAIN IS INCREASED BY:ACTIVITIES PAIN IS DECREASED BY:USE OF PAIN MEDICATIONS, OTHERS MESSAGE, WARM PACKS TREATMENT/MEDICATIONS USED TO MANAGE PAIN:OTC PAIN RELIEVERS LEVEL OF RELIEF FROM PAIN TREATMENTS IN THE PAST:25% PAIN HAS INTERFERED WITH THE FOLLOWING:BATHING/DRESSING, WALKING ABILITY, HOUSEWORK, SLEEP, TRANSPORTATION, TOILETING NURSING NOTE: -. CURRENT MEDICATIONS TAKING TOPIRAMATE 50 MG TABLET 2 TABLETS ORALLY BEFORE BEDTIME, NOTES: 01/19/20202029 TAKING TIZANIDINE HCL 2 MG TABLET 1 TABLET ORALLY TWICE DAILY NEEDED, NOTES: 01/19/20202029 TAKING TRAZODONE HCL 100 MG TABLET 1/2-1 TAB ORALLY BEFORE BEDTIME NEEDED, NOTES: 01/17/2020 TAKING SUMATRIPTAN SUCCINATE 100 MG TABLET 1/2-1 TAB ORALLY AT ONSET OF HEADACHE -MAY REPEAT ONCE AFTER 2 HOURS. MAX 2 TABS/DAY, NOTES: 01/19/2020 AM TAKING ACETAMINOPHEN 325 MG TABLET 2 TABS ORALLY EVERY 4-6 HRS NEEDED, NOTES: PRN TAKING VITAMIN D (CHOLECALCIFEROL) 50 MCG (2000 UT) CAPSULE 1 CAPSULE ORALLY ONCE A DAY, NOTES: 01/19/20202029 TAKING QVAR REDIHALER 80 MCG/ACT AEROSOL BREATH ACTIVATED 1 PUFF INHALATION ONCE A DAY, NOTES: PRN TAKING ALBUTEROL SULFATE 108 (90 BASE) MCG/ACT AEROSOL POWDER BREATH ACTIVATED 1 PUFF NEEDED INHALATION EVERY 4 HRS, NOTES: PRN TAKING DULOXETINE HCL 60 MG CAPSULE DELAYED RELEASE PARTICLES 1 CAPSULE ORALLY ONCE A DAY, NOTES: 01/18/2030 NOT-TAKING GLYBURIDE 5 MG TABLET 1 TAB ORALLY BEFORE DINNER DAILY MEDICATION LIST REVIEWED AND RECONCILED WITH THE PATIENT PAST MEDICAL HISTORY CHRONIC TENSION-TYPE HEADACHES 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 NECK PAIN LOW BACK PAIN SPONDYLOSIS OF CERVICAL SPINE SKIN SENSATION DISTURBANCE MALAISE AND FATIGUE ASTHMA DEPRESSION, ANXIETY DIABETES- NO LONGER TAKES MEDS ALLERGIES LATEX (FOR ALLERGY USE ONLY): RASH, HIVES,ITCHING - ALLERGY HYDROCODONE BITARTRATE: RASH, HIVES, ITCHING - ALLERGY SURGICAL HISTORY 2008,2016 CHOLECYSTECTOMY 2013 TONSILLECTOMY, ADENOIDECTOMY AGE 3 FAMILY HISTORY FATHER: ALIVE, ASTHMA, BACK AND NECK PROBLEMS MOTHER: ALIVE, CHF, TUMORS IN HER FEET,ASTHMA, TUMOR ON SPINE, BACK PROBLEMS, EDEMA IN LEGS, DEPRESSION, ANXIETY, DIAGNOSED WITH UNSPECIFIED HEART DISEASE, DIABETES SIBLINGS: ALIVE, SISTER HAS CHRONIC BACK PAIN, 2 BROTHERS AT 1 BROTHER(S) , 1 SISTER(S) . 2DAUGHTER(S) - HEALTHY. 1 BROTHER . SOCIAL HISTORY GENERAL: TOBACCO USE ARE YOU A:NONSMOKER LATEX QUESTIONNAIRE LATEX ALLERGY : HAVE YOU EVER DEVELOPED ANY TYPE OF REACTION AFTER HANDLING LATEX PRODUCTS SUCH RUBBER GLOVES, CONDOMS, DIAPHRAGMS, BALLOONS, SOCKS, OR UNDERWEAR?YES - PLEASE INDICATE : KNOWN LATEX ALLERGY-HIVES, RASH AND ITCHING DATE ASKED : 01/07/2020 ALCOHOL SCREENING DID YOU HAVE A DRINK CONTAINING ALCOHOL IN THE PAST YEAR?YES HOW OFTEN DID YOU HAVE A DRINK CONTAINING ALCOHOL IN THE PAST YEAR?MONTHLY OR LESS (1 POINT) HOW MANY DRINKS DID YOU HAVE ON A TYPICAL DAY WHEN YOU WERE DRINKING IN THE PAST YEAR?1 OR 2 (0 POINTS) HOW OFTEN DID YOU HAVE SIX OR MORE DRINKS ON ONE OCCASION IN THE PAST YEAR?NEVER (0 POINTS) POINTS1 INTERPRETATIONNEGATIVE RECREATIONAL DRUG USE DRUG USE?YES HOW OFTEN AND HOW MUCH? ADMITS TO OCCASSIONAL MARIJUANA CAFFEINE CAFFEINE USE?YES HOW OFTEN AND HOW MUCH? 2 LITERS OF DIET PEPSI A DAY CHRISTIAN [id number] NONE LANGUAGE LANGUAGES SPOKEN:BRUNEIAN EDUCATION LEVEL OF EDUCATION:HIGH SCHOOL LEARNING BARRIERS / SPECIAL NEEDS BARRIERS TO LEARNING?YES COMMENTS TAKES LONGER TO LEARN THINGS, NOT GOOD WITH MATH AND SOME SPELLING IS DIFFICULT, SOMETIMES NEEDS HELP WITH READING HEARING IMPAIRED?NO VISION IMPAIRED?YES COGNITIVELY IMPAIRED?YES SOMETIMES HAS SOMEONE HELP HER WITH READING WHEN FILLING OUT PAPERS :CORRECTIVE LENSES READINESS TO LEARN?YES LEARNING PREFERENCES?YES :DEMONSTRATION/VERBAL INSTRUCTION LEARNING CAPABILITIES PRESENT?YES EMOTIONAL BARRIERS?YES COMMENTS ANXIETY AND DEPRESSION SPECIAL DEVICES?YES :CANE RIGHT LEG OCCASSIONALLY GIVES OUT ON HER BREAD ICER NEEDED?NO DOMESTIC VIOLENCE DO YOU FEEL SAFE IN YOUR ENVIRONMENT?YES OCCUPATION: UNEMPLOYED. DIET: CARBOHYDRATE CONTROLLED. EXERCISE: CHASING KIDS AND WORKS OUT WITH HER DAUGHTER. PAIN CLINIC PFS, CLERGY, PUBLIC HEALTH REFERRALS PFS REFERRAL NEEDED?NO CLERGY REFERRAL NEEDED?NO PUBLIC HEALTH REFERRAL NEEDED?NO HAS THE PATIENT BEEN EDUCATED REGARDING HIS/HER PLAN OF CARE?YES HAS THE PATIENT BEEN EDUCATED REGARDING PAIN, THE RISK FOR PAIN, THE IMPORTANCE OF EFFECTIVE PAIN MANAGEMENT, AND THE PAIN ASSESSMENT PROCESS?YES ADVANCE DIRECTIVE ADVANCE DIRECTIVE DISCUSSED WITH PATIENT:YES PT DOES NOT HAVE ANY ADVANCED DIRECTIVES AND SHE DECLINES INFORMATION ON HCP AT THIS. HOSPITALIZATION/MAJOR DIAGNOSTIC PROCEDURE SURGERIES VITAL SIGNS WT 150.0 LBS, HT 52 IN, BMI 39.00 INDEX, BP 122/64 MM HG, HR 98 /MIN, RR 18 /MIN, TEMP 97.5 F, OXYGEN SAT % 100%, SAFE IN ENV? (Y/N) YES, NA INITIALS AW 0931, REVIEWED BY: DAVEJREVIEWED 01/20/2020 [id number] Lizandro MCKNIGHT, RN. EXAMINATION GENERAL EXAMINATION: THE PATIENT IS ALERT, ORIENTED TIMES THREE AND COOPERATIVE. HEART SHOWS REGULAR RHYTHM, NO MURMURS AND NO GALLOPS. LUNGS ARE CLEAR TO AUSCULTATION. ASSESSMENTS MYALGIA, OTHER SITE - M79.18 (PRIMARY) TREATMENT MYALGIA, OTHER SITE MEDICATION: VALIUM TAB 5MG ORALLY (DIAZEPAM)BRITNEY HOOPER RN 01/20/2020 9:51:57 AM > LOT#[id number], EXP 06/2020, VERIFIED HI CORDOVA 01/20/2020 9:54:44 AM > ADMINISTERED MEDICATION: OXYCODONE HCL TAB 5MG ORALLY BRITNEY HOOPER RN 01/20/2020 9:52:44 AM > LOT #[id number], EXP 04/2021, VERIFIED HI CORDOVA 01/20/2020 9:54:59 AM > ADMINISTERED OTHERS NOTES: 01/17/20 ELISEO MARKS HEATER OPERATOR HELPER,TRIGGER POINT INJECTION MATERIAL WAS PRINTED. PROCEDURES PAIN NURSING RECORD PROCEDURE IN ROOM 0923, PHYSICIAN IN ROOM 1011, START 1015, FINISH 1019, PHYSICIAN OUT OF ROOM 1019, OUT OF ROOM 1030, STEROID KENALOG 40 MG, O2 RA, ECG N/A, PATIENT SHIELDED NO, SAFETY STRAP NO, PREP ALCOHOL BY DR MCADAMS, IV INFUSED N/A, DRESSING TEGADERM BY Lizandro MCKNIGHT, RN LOC: HI CORDOVA 01/20/2020 10:12:47 AM > , 1. ALERT, ORIENTED RESP: HI CORDOVA 01/20/2020 10:12:50 AM > , 1. REGULAR, NO DYSPNEA COLOR: HI CORDOVA 01/20/2020 10:12:54 AM > , 1. PINK SKIN: HI CORDOVA 01/20/2020 10:12:57 AM > , 1. WARM, DRY POSITION: HI CORDOVA 01/20/2020 10:13:00 AM > , 4. OTHER- SITTING VITALS: HI CORDOVA 01/20/2020 1028 122/62-40-68-100% DISCHARGE: POST PAIN 0 BILATERAL NECK AND BILATERAL THORACIC PATIENT DENIES PAIN AT THIS TIME, DRESSING SITE DRY AND INTACT MID NECK AND MID THORACIC, IV N/A, GAIT STEADY, TEACHING COMPLETED, PATIENT ACKNOWLEDGES UNDERSTANDING YES PATIENT VERBALIZES UNDERSTANDING OF DISCHARGE INSTRUCTIONS REVIEWED, PATIENT DISCHARGED AT 1030 PN TRIGGER POINT INJECTION WITH STEROIDS PRE PROCEDURE DIAGNOSIS 1. MYALGIA 2. PAIN AT BILATERAL NECK AREA AND BILATERAL THORACIC AREA POST PROCEDURE DIAGNOSIS 1. MYALGIA 2. PAIN AT BILATERAL NECK AREA AND BILATERAL THORACIC AREA PROCEDURE TRIGGER POINT INJECTION AT BILATERAL NECK AREA AND BILATERAL THORACIC AREA SURGEON DR. JULIA MCADAMS LABEL MAKER NONE ANESTHESIA LOCAL PRE PROCEDURE NOTE THE PATIENT HAS A HISTORY OF CHRONIC PAIN AT THE RIGHT AND LEFT NECK AREA AND RIGHT AND LEFT THORACIC AREA. I EVALUATED THE PATIENT AND REVIEWED THE CHART. THERE IS EVIDENCE OF BANDS OF TISSUE WITH RESTRICTION OF MOVEMENT AND PRESENCE OF TRIGGER POINT AT THE RIGHT AND LEFT NECK AREA AND RIGHT AND LEFT THORACIC AREA. I WENT OVER THE RISKS, ALTERNATIVES, AND BENEFITS ASSOCIATED WITH THIS PROCEDURE. I DISCUSSED THAT THE USE OF STEROIDS MAY CONTRIBUTE TO IMMUNOSUPPRESSION OF THE PATIENT'S BODY AGAINST INFECTIONS SUCH COVID-19. THE PATIENT IS AWARE OF THE POTENTIAL COMPLICATIONS ASSOCIATED WITH THIS VIRUS, INCLUDING, BUT NOT LIMITED TO, . THE PATIENT WOULD LIKE TO PROCEED AND GIVE CONSENT TO PERFORMED THE PROCEDURE. THE PATIENT DENIES UNEXPLAINABLE WEIGHT LOSS, FEVER, CHILLS, OR NEW CHANGES IN URINARY OR BOWEL CONTROL. THE PATIENT IS COVID-19 NEGATIVE DESCRIPTION OF PROCEDURE THE PATIENT WAS BROUGHT TO THE PROCEDURE ROOM AND PLACED IN THE SITTING POSITION. THE AREA WAS CLEANED WITH ALCOHOL. THE PROCEDURE WAS DONE USING ASEPTIC STERILE TECHNIQUE. A TIMEOUT WAS PERFORMED WHERE LATERALITY AND THE SITE OF THE PROCEDURE WERE CHECKED AND CONFIRMED WITH EVERYONE IN THE ROOM. USING A 25-GAUGE NEEDLE, TRIGGER POINTS WERE INJECTED AT THE RIGHT AND LEFT NECK AREA AND RIGHT AND LEFT THORACIC AREA WITH A TOTAL OF 40 ML OF BUPIVACAINE 0.25% AND KENALOG 40 MG. THE MEDICATIONS WERE VERIFIED WITH THE NURSE. THERE WAS NO EVIDENCE OF BLOOD OR PARESTHESIA DURING THE PROCEDURE. THE PATIENT WAS SENT TO THE RECOVERY ROOM. THE PATIENT WAS MOVING THE EXTREMITIES AND DOING WELL. THERE WERE NO COMPLICATIONS DURING THE PROCEDURE. ESTIMATED BLOOD LOSS WAS LESS THAN 5 ML POST PROCEDURE NOTE DEPENDING ON THE RESULTS OF THIS INJECTION AND MRI, WE CAN CONSIDER FACET BLOCKS. THE PROCEDURE DONE WAS DISCUSSED WITH THE PATIENT. THE PATIENT WILL BE SEEN IN A FOLLOW UP IN THE NEXT FEW WEEKS. I AM LOOKING FOR LONG LASTING PAIN RELIEF FOR THE PATIENT WITH THIS INTERVENTION. INSTRUCTIONS WERE GIVEN, QUESTIONS WERE ANSWERED, AND THE PATIENT EXPRESSED UNDERSTANDING AND AGREES WITH THE PLAN. LUTHER Pearson, DOCUMENTED THE ABOVE INFORMATION ACTING A SCRIBE FOR DR. MCADAMS. I HAVE REVIEWED THE ABOVE DOCUMENT, WRITTEN BY LUTHER PHELPS, TIN PLATER, AND I VERIFY THAT IT IS ACCURATE PROCEDURE CODES 72331 INJECT TRIGGER POINTS 3/> DISPOSITION & COMMUNICATION FOLLOW UP FOLLOW UP WITH ASSOCIATE PROFESSOR OF ART HISTORY (REASON: POST TPI BILATERAL NECK AND THORACIC ) ELECTRONICALLY SIGNED BY JULIA MCADAMS MD, MD ON 01/27/2020 AT 09:22 AM EST DISCLAIMER : THIS IS A VISIT SUMMARY EXTRACTED FROM THE [employer] CHART. IT IS NOT A COPY OF THE [employer] PROGRESS NOTE. MTDD
== END ==
LOC: M PAIN 09:30
PROVIDERS: ATTEND Anesthesiology
DX: M79.18 Myalgia, other site (principal); G44.229 Chronic tension-type headache, not intractable; M47.812 Spondylosis without myelopathy or radiculopathy, cervical region; J45.909 Unspecified asthma, uncomplicated; F32.9 Major depressive disorder, single episode, unspecified; F41.9 Anxiety disorder, unspecified; Z79.899 Other long term (current) drug therapy; Z91.040 Latex allergy status; Z88.5 Allergy status to narcotic agent
CPT/HCPCS: 20553; J3301

== ENCOUNTER → 2020-01-28 | Outpatient (REF) | payer OTHER ==
[~2020-01-28] MED LIST changes: -BUPIVACAINE HCL 0.25% 10ML VIAL As Ordered ONE; -BUPIVACAINE HCL 0.25% 30ML VIAL As Ordered ONE; -TRIAMCINOLONE ACETONIDE SUSP 40 MG/ML VIAL (J3301) As Ordered ONE; -diazePAM 5 MG TAB As Ordered ONE; -oxyCODONE 5MG TAB As Ordered ONE
== END ==
LOC: M LAB REF 16:38
PROVIDERS: ATTEND Nurse Practitioner Family
DX: Z12.4 Encounter for screening for malignant neoplasm of cervix (principal)

== ENCOUNTER → 2020-02-03 | Outpatient (CLI) | payer OTHER ==
--- NOTE | 2020-02-11 07:15 | ECWPNPC ---
PATIENT NAME: SCARLETT COSBY : 1990 GENDER: FEMALE VISIT DATE: 02/03/2020 DISCHARGE DATE: 02/03/20 1446 VISIT LOCKED DATE TIME: PHYSICIAN: YULIYA JAMA RESOURCE: YULIYA JAMA REASON FOR APPOINTMENT 1. POST TRIGGER POINT INJECTION BILATERAL NECK AND UPPER BACK HISTORY OF PRESENT ILLNESS GENERAL: HERE FOR POST PROCEDURE FOLLOW-UP. HEAD TRIGGER POINT INJECTIONS BILATERAL NECK AND UPPER BACK ON 01/20/2020. REPORTING REDUCTION IN PAIN IN THOSE AREAS. CHIEF AREA OF PAIN IS RIGHT NECK AND SHOULDER. REVIEWED MRI OF THE CERVICAL SPINE AND DISCUSSED TREATMENT OPTIONS. PAIN IS AGGRAVATED IN THIS REGION WITH RANGE OF JOINT MOTION OF THE NECK. -. FALL RISK SCREENING: SCREENING :ONE FALL WITH INJURY IN THE PAST YEAR PAIN SCREENING: PATIENT HAS A COMPLAINT OF ACUTE OR CHRONIC PAIN :YES LOCATION OF PAIN:NECK, UPPER BACK, LOW BACK INTENSITY OF PAIN (SCALE OF 1 TO 10):8 WHAT DOES YOUR PAIN FEEL LIKE:SHARP, STABBING DURATION:CONTINOUS, CONSTANT PAIN IS INCREASED BY:ACTIVITIES PAIN IS DECREASED BY:USE OF PAIN MEDICATIONS MESSAGE, HEAT/ICE LEVEL OF RELIEF FROM PAIN TREATMENTS IN THE PAST:100% PAIN HAS INTERFERED WITH THE FOLLOWING:BATHING/DRESSING, WALKING ABILITY, HOUSEWORK, SLEEP, TRANSPORTATION, TOILETING NURSING NOTE: -. PAIN CENTER INTAKE QUESTIONS: DO YOU HAVE A HISTORY OF MRSA? :NO DO YOU TAKE A BLOOD THINNERS? :NO DO YOU HAVE ANY BLEEDING DISORDERS? :NO ANY NEW NUMBNESS OR WEAKNESS IN YOUR LEGS OR ARMS? :NO ANY PACEMAKER,DEFIBRILLATOR, OR DORSAL COLUMN STIMULATOR? :NO DO YOU HAVE ANY RASHES OR OPEN SORES? :NO ARE YOU ALLERGIC TO IV DYE? :NO ARE YOU DIABETIC? :YES ANY NEW PROBLEMS WITH YOUR MEDICATIONS? :NO HAVE YOU RECEIVED A VACCINE IN THE PAST 30 DAYS? :YES IF SO WHAT VACCINE AND WHEN? FLU [id number] DO YOU PLAN TO RECEIVE A VACCINE IN THE NEXT 21 DAYS? :NO DO YOU NEED ANY PRESCRIPTION? :NO DO YOU TAKE ANY IMMUNOSUPPRESSIVE MEDICATIONS? :NO IS THERE A CHANCE YOU COULD BE ? :NO ARE YOU BREAST FEEDING? :NO CURRENT MEDICATIONS TAKING TOPIRAMATE 50 MG TABLET 2 TABLETS ORALLY BEFORE BEDTIME TAKING TIZANIDINE HCL 2 MG TABLET 1 TABLET ORALLY TWICE DAILY NEEDED TAKING TRAZODONE HCL 100 MG TABLET 1/2-1 TAB ORALLY BEFORE BEDTIME NEEDED TAKING SUMATRIPTAN SUCCINATE 100 MG TABLET 1/2-1 TAB ORALLY AT ONSET OF HEADACHE -MAY REPEAT ONCE AFTER 2 HOURS. MAX 2 TABS/DAY TAKING ACETAMINOPHEN 325 MG TABLET 2 TABS ORALLY EVERY 4-6 HRS NEEDED TAKING VITAMIN D (CHOLECALCIFEROL) 50 MCG (2000 UT) CAPSULE 1 CAPSULE ORALLY ONCE A DAY TAKING QVAR REDIHALER 80 MCG/ACT AEROSOL BREATH ACTIVATED 1 PUFF INHALATION ONCE A DAY TAKING ALBUTEROL SULFATE 108 (90 BASE) MCG/ACT AEROSOL POWDER BREATH ACTIVATED 1 PUFF NEEDED INHALATION EVERY 4 HRS TAKING DULOXETINE HCL 60 MG CAPSULE DELAYED RELEASE PARTICLES 1 CAPSULE ORALLY ONCE A DAY NOT-TAKING GLYBURIDE 5 MG TABLET 1 TAB ORALLY BEFORE DINNER DAILY MEDICATION LIST REVIEWED AND RECONCILED WITH THE PATIENT PAST MEDICAL HISTORY CHRONIC TENSION-TYPE HEADACHES 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 NECK PAIN LOW BACK PAIN SPONDYLOSIS OF CERVICAL SPINE SKIN SENSATION DISTURBANCE MALAISE AND FATIGUE ASTHMA DEPRESSION, ANXIETY DIABETES- NO LONGER TAKES MEDS ALLERGIES LATEX (FOR ALLERGY USE ONLY): RASH, HIVES,ITCHING - ALLERGY HYDROCODONE BITARTRATE: RASH, HIVES, ITCHING - ALLERGY SURGICAL HISTORY 2008,2015 CHOLECYSTECTOMY 2013 TONSILLECTOMY, ADENOIDECTOMY AGE 3 FAMILY HISTORY FATHER: ALIVE, ASTHMA, BACK AND NECK PROBLEMS MOTHER: ALIVE, CHF, TUMORS IN HER FEET,ASTHMA, TUMOR ON SPINE, BACK PROBLEMS, EDEMA IN LEGS, DEPRESSION, ANXIETY, DIAGNOSED WITH DIABETES, UNSPECIFIED HEART DISEASE SIBLINGS: ALIVE, SISTER HAS CHRONIC BACK PAIN, 2 BROTHERS AT 1 BROTHER(S) , 1 SISTER(S) . [facility]. 1 BROTHER . SOCIAL HISTORY GENERAL: TOBACCO USE ARE YOU A:NONSMOKER LATEX QUESTIONNAIRE LATEX ALLERGY : HAVE YOU EVER DEVELOPED ANY TYPE OF REACTION AFTER HANDLING LATEX PRODUCTS SUCH RUBBER GLOVES, CONDOMS, DIAPHRAGMS, BALLOONS, SOCKS, OR UNDERWEAR?YES - PLEASE INDICATE : KNOWN LATEX ALLERGY-HIVES, RASH AND ITCHING DATE ASKED : 01/07/2020 ALCOHOL SCREENING DID YOU HAVE A DRINK CONTAINING ALCOHOL IN THE PAST YEAR?YES HOW OFTEN DID YOU HAVE SIX OR MORE DRINKS ON ONE OCCASION IN THE PAST YEAR?NEVER (0 POINTS) HOW MANY DRINKS DID YOU HAVE ON A TYPICAL DAY WHEN YOU WERE DRINKING IN THE PAST YEAR?1 OR 2 (0 POINTS) HOW OFTEN DID YOU HAVE A DRINK CONTAINING ALCOHOL IN THE PAST YEAR?MONTHLY OR LESS (1 POINT) POINTS1 INTERPRETATIONNEGATIVE RECREATIONAL DRUG USE DRUG USE?YES HOW OFTEN AND HOW MUCH? ADMITS TO OCCASSIONAL MARIJUANA CAFFEINE CAFFEINE USE?YES HOW OFTEN AND HOW MUCH? 2 LITERS OF DIET PEPSI A DAY [facility] [id number] NONE LANGUAGE LANGUAGES SPOKEN:BENGALI EDUCATION LEVEL OF EDUCATION:HIGH SCHOOL LEARNING BARRIERS / SPECIAL NEEDS BARRIERS TO LEARNING?YES COMMENTS TAKES LONGER TO LEARN THINGS, NOT GOOD WITH MATH AND SOME SPELLING IS DIFFICULT, SOMETIMES NEEDS HELP WITH READING HEARING IMPAIRED?NO VISION IMPAIRED?YES COGNITIVELY IMPAIRED?YES SOMETIMES HAS SOMEONE HELP HER WITH READING WHEN FILLING OUT PAPERS :CORRECTIVE LENSES READINESS TO LEARN?YES LEARNING PREFERENCES?YES :DEMONSTRATION/VERBAL INSTRUCTION LEARNING CAPABILITIES PRESENT?YES EMOTIONAL BARRIERS?YES COMMENTS ANXIETY AND DEPRESSION SPECIAL DEVICES?YES :CANE RIGHT LEG OCCASSIONALLY GIVES OUT ON HER SENIOR SSIS DEVELOPER NEEDED?NO DOMESTIC VIOLENCE DO YOU FEEL SAFE IN YOUR ENVIRONMENT?YES OCCUPATION: UNEMPLOYED. DIET: CARBOHYDRATE CONTROLLED. EXERCISE: CHASING KIDS AND WORKS OUT WITH HER DAUGHTER. PAIN CLINIC PFS, CLERGY, PUBLIC HEALTH REFERRALS PFS REFERRAL NEEDED?NO CLERGY REFERRAL NEEDED?NO PUBLIC HEALTH REFERRAL NEEDED?NO HAS THE PATIENT BEEN EDUCATED REGARDING HIS/HER PLAN OF CARE?YES HAS THE PATIENT BEEN EDUCATED REGARDING PAIN, THE RISK FOR PAIN, THE IMPORTANCE OF EFFECTIVE PAIN MANAGEMENT, AND THE PAIN ASSESSMENT PROCESS?YES ADVANCE DIRECTIVE ADVANCE DIRECTIVE DISCUSSED WITH PATIENT:YES PT DOES NOT HAVE ANY ADVANCED DIRECTIVES AND SHE DECLINES INFORMATION ON HCP AT THIS. HOSPITALIZATION/MAJOR DIAGNOSTIC PROCEDURE SURGERIES REVIEW OF SYSTEMS CONSTITUTIONAL: ANY RECENT FEVER NO . CHILLS NO . WEIGHT CHANGE OF UNKNOWN REASONS NO . GASTROENTEROLOGY: NEW UNEXPLAINABLE CHANGES IN BOWEL CONTROL NO . CONSTIPATION NO . GENITOURINARY: ANY NEW CHANGE IN BLADDER CONTROL? NO . NEUROLOGY: NEW ONSET DIZZINESS OR NEUROLOGICAL CHANGES NOT MENTIONED NO . NEW NUMBNESS OR PAIN PATTERNS NOT MENTIONED AND PERTINENT TO TODAY'S VISIT NO . CARDIOLOGY: NEW CHEST PRESSURE NO . NEW CHEST PAIN NO . RESPIRATORY: UNEXPLAINABLE COUGH NO . NEW SHORTNESS OF BREATH NO . VITAL SIGNS WT 150.8 LBS, HT 52 IN, BMI 39.21 INDEX, BP 105/56 MM HG, HR 74 /MIN, RR 16 /MIN, TEMP 97.2 F, OXYGEN SAT % 100%, SAFE IN ENV? (Y/N) Y, NA INITIALS SC 13:46, REVIEWED BY: MALU. EXAMINATION GENERAL EXAMINATION: GENERALAWAKE,ALERT ,PLEAASANT . PSYCHAFFECT NORMAL . LUNGS:LUNG ALMEIDA ARE CLEAR TO AUSCULTATION BILATERALLY. GOOD MOVEMENT OF AIR . HEART:S1, S2 IN A REGULAR RATE AND RHYTHM. NO SIGNIFICANT MURMURS, RUBS OR GALLOPS NOTED . CERVICAL:TRIGGER POINTS:RIGHT CERVICAL AND TRAPEZIUS ,RIGHT SHOULDER.PAIN IS AGGREVATED WITH ROJM NECK. ASSESSMENTS OTHER CHRONIC PAIN - G89.29 (PRIMARY) MYALGIA, OTHER SITE - M79.18 TREATMENT OTHER CHRONIC PAIN PAIN PROCEDURE LOGDATE OF [id number]/20PROCEDURE:TRIGGER POINT INJECTIONS BILAT NECK, UPPER BACKAMOUNT OF PRE SEDATEVALIUM 5MG, OXY 5MGRESULT:IMPROVEMENT IN PAIN NOTES: TRIGGER POINT INJECTIONS RIGHT NECK AND SHOULDER. DISPOSITION & COMMUNICATION FOLLOW UP POST PROCEDURE (REASON: TRIGGER POINT INJECTIONS RIGHT NECK AND SHOULDER) ELECTRONICALLY SIGNED BY FAITH MOURA ON 02/10/2020 AT 12:41 PM EST DISCLAIMER : THIS IS A VISIT SUMMARY EXTRACTED FROM THE [employer] CHART. IT IS NOT A COPY OF THE [employer] PROGRESS NOTE. JAIDEN
== END ==
LOC: M PAIN 13:45
PROVIDERS: ATTEND Nurse Practitioner Family
DX: G89.29 Other chronic pain (principal); M79.18 Myalgia, other site; G44.229 Chronic tension-type headache, not intractable; M54.2 Cervicalgia; M54.5 Low back pain; M47.812 Spondylosis without myelopathy or radiculopathy, cervical region; R20.0 Anesthesia of skin; R53.81 Other malaise; R53.83 Other fatigue; J45.909 Unspecified asthma, uncomplicated; F32.9 Major depressive disorder, single episode, unspecified; F41.9 Anxiety disorder, unspecified; Z79.899 Other long term (current) drug therapy; Z88.5 Allergy status to narcotic agent; Z91.040 Latex allergy status

== ENCOUNTER → 2020-02-10 | Outpatient (CLI) | payer OTHER | LOC: M PAIN 13:45 | PROVIDERS: ATTEND Nurse Practitioner Family | DX: Z53.29 Procedure and treatment not carried out because of patient's decision for other reasons (principal) ==

== ENCOUNTER → 2020-02-10 | Outpatient (RCR) | payer OTHER | LOC: M PT 01-13 13:41 | PROVIDERS: ATTEND Nurse Practitioner Family | DX: M79.18 Myalgia, other site (principal) ==

== ENCOUNTER 2020-02-12 14:33 | Outpatient (RCR) | payer OTHER | END 2020-03-12 | LOC: M PT 14:33 | PROVIDERS: ATTEND Nurse Practitioner Family | DX: Z51.89 Encounter for other specified aftercare (principal); M79.18 Myalgia, other site ==

== ENCOUNTER → 2020-03-29 | Outpatient (CLI) | payer OTHER | LOC: M LABSMTC 10:42 | PROVIDERS: ATTEND Anesthesiology | DX: Z20.822 Contact with and (suspected) exposure to COVID-19 (principal) ==

== ENCOUNTER → 2020-04-03 | Outpatient (CLI) | payer OTHER ==
[~2020-04-03] MED LIST changes: +BUPIVACAINE HCL 0.25% 10ML VIAL As Ordered ONE; +BUPIVACAINE HCL 0.25% 30ML VIAL As Ordered ONE; +TRIAMCINOLONE ACETONIDE SUSP 40 MG/ML VIAL (J3301) As Ordered ONE; +diazePAM 5MG TABLET As Ordered ONE; +oxyCODONE 5MG TAB As Ordered ONE
--- NOTE | 2020-04-07 01:31 | ECWPNPC ---
PATIENT NAME: SCARLETT COSBY : 1990 GENDER: FEMALE VISIT DATE: 04/03/2020 DISCHARGE DATE: 04/03/20 1447 VISIT LOCKED DATE TIME: PHYSICIAN: JULIA MCADAMS MD RESOURCE: JULIA MCADAMS MD REASON FOR APPOINTMENT 1. TRIGGER POINT INJECTIONS RIGHT NECK AND RIGHT SHOULDER HISTORY OF PRESENT ILLNESS GENERAL: -. FALL RISK SCREENING: SCREENING :NO FALLS REPORTED IN THE LAST YEAR PAIN SCREENING: PATIENT HAS A COMPLAINT OF ACUTE OR CHRONIC PAIN :YES 8/10 LOCATION OF PAIN:NECK, RIGHT SHOULDER INTENSITY OF PAIN (SCALE OF 1 TO 10):7 WHAT DOES YOUR PAIN FEEL LIKE:ACHING, CONTINOUS, STABBING DURATION:CONTINOUS, ALL DAY PAIN IS INCREASED BY:OTHERS LIFTING, LIFTING ARM UP PAIN IS DECREASED BY:SITTING, OTHERS RELAXING, HEAT, MASSAGE NURSING NOTE: -. PAIN CENTER INTAKE QUESTIONS: DO YOU HAVE A HISTORY OF MRSA? :NO DO YOU TAKE A BLOOD THINNERS? :NO DO YOU HAVE ANY BLEEDING DISORDERS? :NO ANY NEW NUMBNESS OR WEAKNESS IN YOUR LEGS OR ARMS? :NO ANY PACEMAKER,DEFIBRILLATOR, OR DORSAL COLUMN STIMULATOR? :NO DO YOU HAVE ANY RASHES OR OPEN SORES? :NO ARE YOU ALLERGIC TO IV DYE? :NO ARE YOU DIABETIC? :YES NO MEDICATION CURRENTLY- DIET CONTROLLED, WILL DO FSBS ANY NEW PROBLEMS WITH YOUR MEDICATIONS? :NO HAVE YOU RECEIVED A VACCINE IN THE PAST 30 DAYS? :NO DO YOU PLAN TO RECEIVE A VACCINE IN THE NEXT 21 DAYS? :NO DO YOU TAKE ANY IMMUNOSUPPRESSIVE MEDICATIONS? :NO ANY HISTORY OF SEIZURES? :NO ANY HISTORY OF CARDIAC ISSUES OR EVENTS? :NO DO YOU HAVE SLEEP APNEA? :NO ANY RECENT HEAD INJURY? :NO DO YOU HAVE ANY NEW INFECTIONS? :NO IS THERE A CHANCE YOU COULD BE ? :NO ARE YOU BREAST FEEDING? :NO WHEN DID YOU LAST EAT? : -04/02/2020 WHEN DID YOU LAST DRINK? : -0-04/02/2020 WHAT DID YOU LAST DRINK? : -NETTE ADAMS NAME OF PERSON DRIVING YOU HOME? : DO YOU HAVE ANY OTHER QUESTIONS OR CONCERNS? : -DENIES QUESTIONS OR CONCERNS CURRENT MEDICATIONS TAKING TOPIRAMATE 50 MG TABLET 2 TABLETS ORALLY BEFORE BEDTIME TAKING TIZANIDINE HCL 2 MG TABLET 1 TABLET ORALLY TWICE DAILY NEEDED TAKING TRAZODONE HCL 100 MG TABLET 1/2-1 TAB ORALLY BEFORE BEDTIME NEEDED TAKING SUMATRIPTAN SUCCINATE 100 MG TABLET 1/2-1 TAB ORALLY AT ONSET OF HEADACHE -MAY REPEAT ONCE AFTER 2 HOURS. MAX 2 TABS/DAY TAKING ACETAMINOPHEN 325 MG TABLET 2 TABS ORALLY EVERY 4-6 HRS NEEDED TAKING VITAMIN D (CHOLECALCIFEROL) 50 MCG (2000 UT) CAPSULE 1 CAPSULE ORALLY ONCE A DAY TAKING QVAR REDIHALER 80 MCG/ACT AEROSOL BREATH ACTIVATED 1 PUFF INHALATION ONCE A DAY TAKING ALBUTEROL SULFATE 108 (90 BASE) MCG/ACT AEROSOL POWDER BREATH ACTIVATED 1 PUFF NEEDED INHALATION EVERY 4 HRS TAKING DULOXETINE HCL 60 MG CAPSULE DELAYED RELEASE PARTICLES 1 CAPSULE ORALLY ONCE A DAY NOT-TAKING GLYBURIDE 5 MG TABLET 1 TAB ORALLY BEFORE DINNER DAILY MEDICATION LIST REVIEWED AND RECONCILED WITH THE PATIENT PAST MEDICAL HISTORY CHRONIC TENSION-TYPE HEADACHES 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 NECK PAIN LOW BACK PAIN SPONDYLOSIS OF CERVICAL SPINE SKIN SENSATION DISTURBANCE MALAISE AND FATIGUE ASTHMA DEPRESSION, ANXIETY DIABETES- NO LONGER TAKES MEDS ALLERGIES LATEX (FOR ALLERGY USE ONLY): RASH, HIVES,ITCHING - ALLERGY HYDROCODONE BITARTRATE: RASH, HIVES, ITCHING - ALLERGY SURGICAL HISTORY 2008,2015 CHOLECYSTECTOMY 2013 TONSILLECTOMY, ADENOIDECTOMY AGE 3 SOCIAL HISTORY GENERAL: TOBACCO USE ARE YOU A:NONSMOKER LATEX QUESTIONNAIRE LATEX ALLERGY : HAVE YOU EVER DEVELOPED ANY TYPE OF REACTION AFTER HANDLING LATEX PRODUCTS SUCH RUBBER GLOVES, CONDOMS, DIAPHRAGMS, BALLOONS, SOCKS, OR UNDERWEAR?YES - PLEASE INDICATE : KNOWN LATEX ALLERGY-HIVES, RASH AND ITCHING DATE ASKED : 04/02/2020 ALCOHOL SCREENING DID YOU HAVE A DRINK CONTAINING ALCOHOL IN THE PAST YEAR?YES HOW OFTEN DID YOU HAVE SIX OR MORE DRINKS ON ONE OCCASION IN THE PAST YEAR?NEVER (0 POINTS) HOW MANY DRINKS DID YOU HAVE ON A TYPICAL DAY WHEN YOU WERE DRINKING IN THE PAST YEAR?1 OR 2 (0 POINTS) HOW OFTEN DID YOU HAVE A DRINK CONTAINING ALCOHOL IN THE PAST YEAR?MONTHLY OR LESS (1 POINT) POINTS1 INTERPRETATIONNEGATIVE RECREATIONAL DRUG USE DRUG USE?YES HOW OFTEN AND HOW MUCH? ADMITS TO OCCASSIONAL MARIJUANA CAFFEINE CAFFEINE USE?YES HOW OFTEN AND HOW MUCH? 2 LITERS OF DIET PEPSI A DAY RASTAFARI [id number] NONE LANGUAGE LANGUAGES SPOKEN:PERSIAN EDUCATION LEVEL OF EDUCATION:HIGH SCHOOL LEARNING BARRIERS / SPECIAL NEEDS BARRIERS TO LEARNING?YES COMMENTS TAKES LONGER TO LEARN THINGS, NOT GOOD WITH MATH AND SOME SPELLING IS DIFFICULT, SOMETIMES NEEDS HELP WITH READING HEARING IMPAIRED?NO VISION IMPAIRED?YES COGNITIVELY IMPAIRED?YES SOMETIMES HAS SOMEONE HELP HER WITH READING WHEN FILLING OUT PAPERS :CORRECTIVE LENSES READINESS TO LEARN?YES LEARNING PREFERENCES?YES :DEMONSTRATION/VERBAL INSTRUCTION LEARNING CAPABILITIES PRESENT?YES EMOTIONAL BARRIERS?YES COMMENTS ANXIETY AND DEPRESSION SPECIAL DEVICES?YES :CANE RIGHT LEG OCCASSIONALLY GIVES OUT ON HER PRINCIPAL NETWORK ARCHITECT NEEDED?NO DOMESTIC VIOLENCE DO YOU FEEL SAFE IN YOUR ENVIRONMENT?YES OCCUPATION: UNEMPLOYED. DIET: CARBOHYDRATE CONTROLLED. EXERCISE: CHASING KIDS AND WORKS OUT WITH HER DAUGHTER. - PFS REFERRAL NEEDED?NO CLERGY REFERRAL NEEDED?NO PUBLIC HEALTH REFERRAL NEEDED?NO HAS THE PATIENT BEEN EDUCATED REGARDING HIS/HER PLAN OF CARE?YES HAS THE PATIENT BEEN EDUCATED REGARDING PAIN, THE RISK FOR PAIN, THE IMPORTANCE OF EFFECTIVE PAIN MANAGEMENT, AND THE PAIN ASSESSMENT PROCESS?YES ADVANCE DIRECTIVE ADVANCE DIRECTIVE DISCUSSED WITH PATIENT:YES PT DOES NOT HAVE ANY ADVANCED DIRECTIVES AND SHE DECLINES INFORMATION ON HCP AT THIS. HOSPITALIZATION/MAJOR DIAGNOSTIC PROCEDURE SURGERIES VITAL SIGNS WT 151.0 LBS, HT 52 IN, BMI 39.26 INDEX, BP 120/65 MM HG, HR 89 /MIN, RR 18 /MIN, TEMP 98.0 F, OXYGEN SAT % 100%, SAFE IN ENV? (Y/N) Y, NA INITIALS AW 1321, REVIEWED BY: MORIAH. EXAMINATION GENERAL EXAMINATION: THE PATIENT IS ALERT, ORIENTED TIMES THREE AND COOPERATIVE. LUNGS ARE CLEAR TO AUSCULTATION. HEART SHOWS REGULAR RHYTHM, NO MURMURS AND NO GALLOPS. ASSESSMENTS MYALGIA, OTHER SITE - M79.18 (PRIMARY) TREATMENT MYALGIA, OTHER SITE MEDICATION: VALIUM TAB 5MG ORALLY (DIAZEPAM)HI CORDOVA 04/03/2020 1:47:21 PM > VERIFIED LOT # [id number] EXP DEC 2021 THU HEARN 04/03/2020 1:47:56 PM > VERIFIED HI CORDOVA 04/03/2020 1:52:51 PM > FISRT VALIUM DROPPED ON FLOOR SECOND PILL LOT # [id number] Dec 2021 THU HEARN 04/03/2020 1:55:12 PM > ADMINISTERED MEDICATION: OXYCODONE HCL TAB 5MG ORALLY HI CORDOVA 04/03/2020 1:47:52 PM > VERIFIED LOT# [id number] 04/2021 THU HEARN 04/03/2020 1:54:45 PM > ADMINISTERED COMPLETION OF PROCEDURAL VISIT WHEN MEETS CRITERIATHU HEARN 04/03/2020 2:54:41 PM > CRITERIA MET OTHERS NOTES: PRE PROCEDURE PHONE CALL COMPLETED 04/02/2020 Dao MCKNIGHT RN. PROCEDURES PAIN NURSING RECORD PROCEDURE IN ROOM 1316, PHYSICIAN IN ROOM 1426 LOC: 1. ALERT, ORIENTED, 1316 RESP: 1316 , 1. REGULAR, NO DYSPNEA COLOR: 1316 , 1. PINK SKIN: 1316 , 1. WARM, DRY POSITION: 5. 1316 SITTING VITALS: 1444 BP107/68, HR 85, 99% NOTES Christopher HEARN RN, COMPLETION OF PROCEDURE APPOINTMENT: POST PAIN 0, DRESSING SITE DRY AND INTACT, IV N/A, GAIT STEADY, TEACHING COMPLETED, PATIENT ACKNOWLEDGES UNDERSTANDING YES PATIENT VERBALIZES UNDERSTANDING, PROCEDURE APPOINTMENT COMPLETED AT 1446 BY: Christopher HEARN RN PN TRIGGER POINT INJECTION WITH STEROIDS PRE PROCEDURE DIAGNOSIS 1. MYALGIA 2. PAIN AT RIGHT NECK AREA AND RIGHT SHOULDER AREA POST PROCEDURE DIAGNOSIS 1. MYALGIA 2. PAIN AT RIGHT NECK AREA AND RIGHT SHOULDER AREA PROCEDURE TRIGGER POINT INJECTION AT RIGHT NECK AREA AND RIGHT SHOULDER AREA SURGEON DR. JULIA MCADAMS PROGRAM SUPPORT ASSISTANT NONE ANESTHESIA LOCAL PRE PROCEDURE NOTE THE PATIENT HAS A HISTORY OF CHRONIC PAIN AT THE RIGHT NECK AREA AND RIGHT SHOULDER AREA. I EVALUATED THE PATIENT AND REVIEWED THE CHART. THERE IS EVIDENCE OF BANDS OF TISSUE WITH RESTRICTION OF MOVEMENT AND PRESENCE OF TRIGGER POINT AT THE RIGHT NECK AREA AND RIGHT SHOULDER AREA. I WENT OVER THE RISKS, ALTERNATIVES, AND BENEFITS ASSOCIATED WITH THIS PROCEDURE. THE PATIENT WOULD LIKE TO PROCEED AND GIVE CONSENT TO PERFORMED THE PROCEDURE. THE PATIENT DENIES UNEXPLAINABLE WEIGHT LOSS, FEVER, CHILLS, OR NEW CHANGES IN URINARY OR BOWEL CONTROL. THE PATIENT IS COVID-19 NEGATIVE DESCRIPTION OF PROCEDURE THE PATIENT WAS BROUGHT TO THE PROCEDURE ROOM AND PLACED IN THE SITTING POSITION. THE AREA WAS CLEANED WITH ALCOHOL. THE PROCEDURE WAS DONE USING ASEPTIC STERILE TECHNIQUE. A TIMEOUT WAS PERFORMED WHERE LATERALITY AND THE SITE OF THE PROCEDURE WERE CHECKED AND CONFIRMED WITH EVERYONE IN THE ROOM. USING A 25-GAUGE NEEDLE, TRIGGER POINTS WERE INJECTED AT THE RIGHT NECK AREA AND RIGHT SHOULDER AREA WITH A TOTAL OF 40 ML OF BUPIVACAINE 0.25% AND KENALOG 40 MG. THE MEDICATIONS WERE VERIFIED WITH THE NURSE. THERE WAS NO EVIDENCE OF BLOOD OR PARESTHESIA DURING THE PROCEDURE. THE PATIENT WAS SENT TO THE RECOVERY ROOM. THE PATIENT WAS MOVING THE EXTREMITIES AND DOING WELL. THERE WERE NO COMPLICATIONS DURING THE PROCEDURE. ESTIMATED BLOOD LOSS WAS LESS THAN 5 ML POST PROCEDURE NOTE DEPENDING ON THE RESULTS, CONSIDER WORKING WITH THE FACET JOINTS. THE PROCEDURE DONE WAS DISCUSSED WITH THE PATIENT. THE PATIENT WILL BE SEEN IN A FOLLOW UP IN THE NEXT FEW WEEKS. I AM LOOKING FOR LONG LASTING PAIN RELIEF FOR THE PATIENT WITH THIS INTERVENTION. INSTRUCTIONS WERE GIVEN, QUESTIONS WERE ANSWERED, AND THE PATIENT EXPRESSED UNDERSTANDING AND AGREES WITH THE PLAN. I, LUTHER PHELPS, DOCUMENTED THE ABOVE INFORMATION ACTING A SCRIBE FOR DR. MCADAMS. I HAVE REVIEWED THE ABOVE DOCUMENT, WRITTEN BY LUTHER PHELPS, INTERACTIVE MEDIA MARKETING SPECIALIST, AND I VERIFY THAT IT IS ACCURATE PROCEDURE CODES 61602 INJ TRIGGER POINT / MUSC DISPOSITION & COMMUNICATION FOLLOW UP FOLLOW UP WITH COUNTY COURT JUDGE (REASON: TRIGGER POINT INJECTIONS RIGHT NECK AND RIGHT SHOULDER) ELECTRONICALLY SIGNED BY JULIA MCADAMS MD, MD ON 04/06/2020 AT 04:50 PM EST DISCLAIMER : THIS IS A VISIT SUMMARY EXTRACTED FROM THE [email or web address] CHART. IT IS NOT A COPY OF THE [employer] PROGRESS NOTE. JAIDEN
== END ==
LOC: M PAIN 13:30
PROVIDERS: ATTEND Anesthesiology
DX: M79.18 Myalgia, other site (principal); G44.221 Chronic tension-type headache, intractable; M54.2 Cervicalgia; M54.5 Low back pain; M47.812 Spondylosis without myelopathy or radiculopathy, cervical region; J45.909 Unspecified asthma, uncomplicated; F32.9 Major depressive disorder, single episode, unspecified; F41.9 Anxiety disorder, unspecified; Z79.899 Other long term (current) drug therapy; Z88.5 Allergy status to narcotic agent; Z91.040 Latex allergy status
CPT/HCPCS: 20552; J3301

== ENCOUNTER → 2020-04-20 | Outpatient (REF) | payer OTHER ==
[~2020-04-20] MED LIST changes: -BUPIVACAINE HCL 0.25% 10ML VIAL As Ordered ONE; -BUPIVACAINE HCL 0.25% 30ML VIAL As Ordered ONE; -TRIAMCINOLONE ACETONIDE SUSP 40 MG/ML VIAL (J3301) As Ordered ONE; -diazePAM 5MG TABLET As Ordered ONE; -oxyCODONE 5MG TAB As Ordered ONE
[2020-04-20 18:23] LABS: BASO % 0.6 % (0.0-1.0); EOS # 0.1 10^3/uL (0.0-0.5); HEMATOCRIT 36.3 % (36.0-47.0); HEMOGLOBIN 12.9 g/dl (12.0-15.5); LYMPH # 1.3 10^3/uL (1.5-5.0); LYMPH % 21.4 % (24.0-44.0); MEAN CORPUSCULAR HEMOGLOBIN 33.1 pg (27.0-33.0); MEAN CORPUSCULAR HGB CONC 35.5 g/dl (32.0-36.5); MEAN CORPUSCULAR VOLUME 93.1 fl (80.0-96.0); MONO # 0.4 10^3/uL (0.0-0.8); MONO % 6.8 % (0.0-5.0); NEUTROPHILS # 4.3 10^3/uL (1.5-8.5); NEUTROPHILS % 69.9 % (36.0-66.0); PLATELET COUNT, AUTOMATED 173 10^3/uL (150-450); WHITE BLOOD COUNT 6.2 10^3/uL (4.0-10.0)
[2020-04-20 18:33] LABS: ALBUMIN 4.3 GM/DL (3.2-5.2); ALT/SGPT 10 U/L (12-78); BILIRUBIN,TOTAL 0.8 MG/DL (0.2-1.0); BLOOD UREA NITROGEN 9 MG/DL (7-18); CALCIUM LEVEL 8.4 MG/DL (8.5-10.1); CARBON DIOXIDE LEVEL 25 MEQ/L (21-32); CHLORIDE LEVEL 108 MEQ/L (98-107); CHOLESTEROL LEVEL 85 MG/DL (<200); CHOLESTEROL RISK RATIO 2.931 (<5); CREATININE FOR GFR 0.76 MG/DL (0.55-1.30); FREE T4 0.91 NG/DL (0.76-1.46); GLOMERULAR FILTRATION RATE > 60.0 (>60); GLUCOSE, FASTING 267 MG/DL (70-100); HDL CHOLESTEROL 29 MG/DL (>40); LDL CHOLESTEROL 44 MG/DL (<100); NON-HDL-C 56 MG/DL; POTASSIUM SERUM 3.9 MEQ/L (3.5-5.1); SODIUM LEVEL 140 MEQ/L (136-145); TOTAL PROTEIN 6.9 GM/DL (6.4-8.2); TRIGLYCERIDES LEVEL 60 MG/DL (<150)
[2020-04-20 19:12] LABS: HEMOGLOBIN A1c 5.6 %
== END ==
LOC: M LAB REF 16:47
PROVIDERS: ATTEND Nurse Practitioner Family
DX: R94.6 Abnormal results of thyroid function studies (principal); R73.9 Hyperglycemia, unspecified

== ENCOUNTER → 2020-04-27 | Outpatient (CLI) | payer OTHER ==
--- NOTE | 2020-05-03 23:27 | ECWPNPC ---
PATIENT NAME: SCARLETT COSBY : 1990 GENDER: FEMALE VISIT DATE: 04/27/2020 DISCHARGE DATE: 04/27/20 1200 VISIT LOCKED DATE TIME: PHYSICIAN: YULIYA JAMA RESOURCE: YULIYA JAMA REASON FOR APPOINTMENT 1. POST TRIGGER POINT INJECTIONS RIGHT NECK AND SHOULDER HISTORY OF PRESENT ILLNESS GENERAL: HERE FOR POST PROCEDURE F/U.HAD TPI RIGHT NECK AND SHOULDER 03/2020.SHE FEELS PAIN HAS IMPROVED POST PROCEDURE AND CONTINUES TODAY.REPORTING SOME IMPROVEMENT WITH ROJM OF NECK SINCE PROCEDURE.DISCUSSED TREATMENT PLAN. -. FALL RISK SCREENING: SCREENING :NO FALLS REPORTED IN THE LAST YEAR PAIN SCREENING: PATIENT HAS A COMPLAINT OF ACUTE OR CHRONIC PAIN :YES LOCATION OF PAIN:NECK INTENSITY OF PAIN (SCALE OF 1 TO 10):3 WHAT DOES YOUR PAIN FEEL LIKE:OTHER PRESSURE, TENSE DURATION:INTERMITTENT PAIN IS INCREASED BY:ACTIVITIES PAIN IS DECREASED BY:OTHERS HEAT NURSING NOTE: -. PAIN CENTER INTAKE QUESTIONS: DO YOU HAVE A HISTORY OF MRSA? :NO DO YOU TAKE A BLOOD THINNERS? :NO DO YOU HAVE ANY BLEEDING DISORDERS? :NO ANY NEW NUMBNESS OR WEAKNESS IN YOUR LEGS OR ARMS? :NO ANY PACEMAKER,DEFIBRILLATOR, OR DORSAL COLUMN STIMULATOR? :NO DO YOU HAVE ANY RASHES OR OPEN SORES? :NO ARE YOU ALLERGIC TO IV DYE? :NO ARE YOU DIABETIC? :NO ANY NEW PROBLEMS WITH YOUR MEDICATIONS? :NO HAVE YOU RECEIVED A VACCINE IN THE PAST 30 DAYS? :NO DO YOU PLAN TO RECEIVE A VACCINE IN THE NEXT 21 DAYS? :NO DO YOU NEED ANY PRESCRIPTION? :NO DO YOU TAKE ANY IMMUNOSUPPRESSIVE MEDICATIONS? :NO IS THERE A CHANCE YOU COULD BE ? :NO ARE YOU BREAST FEEDING? :NO CURRENT MEDICATIONS TAKING TOPIRAMATE 50 MG TABLET 2 TABLETS ORALLY BEFORE BEDTIME TAKING TIZANIDINE HCL 2 MG TABLET 1 TABLET ORALLY TWICE DAILY NEEDED TAKING TRAZODONE HCL 100 MG TABLET 1/2-1 TAB ORALLY BEFORE BEDTIME NEEDED TAKING SUMATRIPTAN SUCCINATE 100 MG TABLET 1/2-1 TAB ORALLY AT ONSET OF HEADACHE -MAY REPEAT ONCE AFTER 2 HOURS. MAX 2 TABS/DAY TAKING ACETAMINOPHEN 325 MG TABLET 2 TABS ORALLY EVERY 4-6 HRS NEEDED TAKING VITAMIN D (CHOLECALCIFEROL) 50 MCG (2000 UT) CAPSULE 1 CAPSULE ORALLY ONCE A DAY TAKING QVAR REDIHALER 80 MCG/ACT AEROSOL BREATH ACTIVATED 1 PUFF INHALATION ONCE A DAY TAKING ALBUTEROL SULFATE 108 (90 BASE) MCG/ACT AEROSOL POWDER BREATH ACTIVATED 1 PUFF NEEDED INHALATION EVERY 4 HRS TAKING DULOXETINE HCL 60 MG CAPSULE DELAYED RELEASE PARTICLES 1 CAPSULE ORALLY ONCE A DAY NOT-TAKING GLYBURIDE 5 MG TABLET 1 TAB ORALLY BEFORE DINNER DAILY MEDICATION LIST REVIEWED AND RECONCILED WITH THE PATIENT PAST MEDICAL HISTORY CHRONIC TENSION-TYPE HEADACHES 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 NECK PAIN LOW BACK PAIN SPONDYLOSIS OF CERVICAL SPINE SKIN SENSATION DISTURBANCE MALAISE AND FATIGUE ASTHMA DEPRESSION, ANXIETY DIABETES- NO LONGER TAKES MEDS ALLERGIES LATEX (FOR ALLERGY USE ONLY): RASH, HIVES,ITCHING - ALLERGY HYDROCODONE BITARTRATE: RASH, HIVES, ITCHING - ALLERGY SOCIAL HISTORY GENERAL: TOBACCO USE ARE YOU A:NONSMOKER LATEX QUESTIONNAIRE LATEX ALLERGY : HAVE YOU EVER DEVELOPED ANY TYPE OF REACTION AFTER HANDLING LATEX PRODUCTS SUCH RUBBER GLOVES, CONDOMS, DIAPHRAGMS, BALLOONS, SOCKS, OR UNDERWEAR?YES - PLEASE INDICATE : KNOWN LATEX ALLERGY-HIVES, RASH AND ITCHING LATEX ALLERGY : HAVE YOU EVER DEVELOPED ANY TYPE OF REACTION DURING OR AFTER DENTAL APPOINTMENT, VAGINAL/RECTAL EXAMINATION, SURGICAL PROCEDURE, OR ANY OTHER EXPOSURE?NO LATEX RISK : HAVE YOU EVER HAD ANY DIFFICULTY BREATHING OR HIVES AFTER EATING OR HANDLING ANY FRUITS, OR VEGETABLES; SUCH KIWI, BANANAS, STONE FRUITS, OR CHESTNUTSNO LATEX RISK : DO YOU HAVE A PREVIOUS PERSONAL HISTORY OF MORE THAN NINE SURGERIES, SPINA BIFIDA, OR REPEATED CATHERIZATIONS? NO LATEX RISK : ARE YOU FREQUENTLY EXPOSED TO LATEX PRODUCTS IN YOUR OCCUPATION?NO DATE ASKED : 04/27/2020 ALCOHOL USE: NO. ALCOHOL SCREENING DID YOU HAVE A DRINK CONTAINING ALCOHOL IN THE PAST YEAR?YES HOW OFTEN DID YOU HAVE SIX OR MORE DRINKS ON ONE OCCASION IN THE PAST YEAR?NEVER (0 POINTS) HOW MANY DRINKS DID YOU HAVE ON A TYPICAL DAY WHEN YOU WERE DRINKING IN THE PAST YEAR?1 OR 2 (0 POINTS) HOW OFTEN DID YOU HAVE A DRINK CONTAINING ALCOHOL IN THE PAST YEAR?MONTHLY OR LESS (1 POINT) POINTS1 INTERPRETATIONNEGATIVE RECREATIONAL DRUG USE DRUG USE?YES HOW OFTEN AND HOW MUCH? ADMITS TO OCCASSIONAL MARIJUANA CAFFEINE CAFFEINE USE?YES HOW OFTEN AND HOW MUCH? 2 LITERS OF DIET PEPSI A DAY DENOMINATIONAL [id number] NONE LANGUAGE LANGUAGES SPOKEN:KAZAKH EDUCATION LEVEL OF EDUCATION:HIGH SCHOOL LEARNING BARRIERS / SPECIAL NEEDS CHANGE FROM LAST VISIT?NO BARRIERS TO LEARNING?YES COMMENTS TAKES LONGER TO LEARN THINGS, NOT GOOD WITH MATH AND SOME SPELLING IS DIFFICULT, SOMETIMES NEEDS HELP WITH READING HEARING IMPAIRED?NO VISION IMPAIRED?YES :CORRECTIVE LENSES COGNITIVELY IMPAIRED?YES SOMETIMES HAS SOMEONE HELP HER WITH READING WHEN FILLING OUT PAPERS READINESS TO LEARN?YES LEARNING PREFERENCES?YES :DEMONSTRATION/VERBAL INSTRUCTION LEARNING CAPABILITIES PRESENT?YES EMOTIONAL BARRIERS?YES COMMENTS ANXIETY AND DEPRESSION SPECIAL DEVICES?YES :CANE RIGHT LEG OCCASSIONALLY GIVES OUT ON HER INTENSIVE CARE NURSE NEEDED?NO DOMESTIC VIOLENCE DO YOU FEEL SAFE IN YOUR ENVIRONMENT?YES OCCUPATION: UNEMPLOYED. DIET: CARBOHYDRATE CONTROLLED. EXERCISE: CHASING KIDS AND WORKS OUT WITH HER DAUGHTER. - PFS REFERRAL NEEDED?NO CLERGY REFERRAL NEEDED?NO PUBLIC HEALTH REFERRAL NEEDED?NO HAS THE PATIENT BEEN EDUCATED REGARDING HIS/HER PLAN OF CARE?YES HAS THE PATIENT BEEN EDUCATED REGARDING PAIN, THE RISK FOR PAIN, THE IMPORTANCE OF EFFECTIVE PAIN MANAGEMENT, AND THE PAIN ASSESSMENT PROCESS?YES ADVANCE DIRECTIVE ADVANCE DIRECTIVE DISCUSSED WITH PATIENT:YES PT DOES NOT HAVE ANY ADVANCED DIRECTIVES AND SHE DECLINES INFORMATION ON HCP AT THIS. REVIEW OF SYSTEMS CONSTITUTIONAL: ANY RECENT FEVER NO . CHILLS NO . WEIGHT CHANGE OF UNKNOWN REASONS NO . GASTROENTEROLOGY: NEW UNEXPLAINABLE CHANGES IN BOWEL CONTROL NO . CONSTIPATION NO . GENITOURINARY: ANY NEW CHANGE IN BLADDER CONTROL? NO . NEUROLOGY: NEW ONSET DIZZINESS OR NEUROLOGICAL CHANGES NOT MENTIONED NO . NEW NUMBNESS OR PAIN PATTERNS NOT MENTIONED AND PERTINENT TO TODAY'S VISIT NO . CARDIOLOGY: NEW CHEST PRESSURE NO . NEW CHEST PAIN NO . RESPIRATORY: UNEXPLAINABLE COUGH NO . NEW SHORTNESS OF BREATH NO . VITAL SIGNS WT 152 LBS, HT 52 IN, BMI 39.52 INDEX, BP 108/6!, HR 77 /MIN, RR 18 /MIN, TEMP 99.2 F, OXYGEN SAT % 100%, SAFE IN ENV? (Y/N) YES, REVIEWED BY: MIKEY AU MA. EXAMINATION GENERAL EXAMINATION: GENERALAWAKE,ALERT ,PLEASANT . PSYCHAFFECT NORMAL . LUNGS:LUNG ALMEIDA ARE CLEAR TO AUSCULTATION BILATERALLY. GOOD MOVEMENT OF AIR . HEART:S1, S2 IN A REGULAR RATE AND RHYTHM. NO SIGNIFICANT MURMURS, RUBS OR GALLOPS NOTED . ASSESSMENTS OTHER CHRONIC PAIN - G89.29 (PRIMARY) MYALGIA, OTHER SITE - M79.18 TREATMENT OTHER CHRONIC PAIN PAIN PROCEDURE LOGDATE OF [id number]/22/21PROCEDURE:TRIGGER POINT INJECTIONS RIGHT NECK AND SHOULDERAMOUNT OF PRE SEDATEVALIUM 5MG, OXYCODONE 5MGRESULT:REPORTING IMPROVEMENT IN PAIN AND ROJM POST PROCEDURE NOTES: HOME STRETCHING EXCERSISES WERE REVIEWED AND HAND OUT GIVEN.ADVISED TO DO 15 REPS 3X DAILY.APPLY HEAT DURING EXCERSISE.APPLY OVER THE COUNTER TOPICAL MEDICATION TO SORE AREAS AFTER HEAT/EXCERSISE TREATMENT. PRINTED NECK STRETCHES AND EXERCISE HANDOUTS AND GAVE TO PATIENT. PATIENT VERBALIZED AN UNDERSTANDING. Juan GRIGSBY RN. PROCEDURE CODES FA211 ESTABILISHED PATIENT [facility] CHARGE DISPOSITION & COMMUNICATION FOLLOW UP 3 MONTHS (REASON: MYALGIA/HOME EXCERSISE NECK REVIEW) ELECTRONICALLY SIGNED BY FAITH MOURA ON 05/03/2020 AT 10:26 AM EST DISCLAIMER : THIS IS A VISIT SUMMARY EXTRACTED FROM THE [employer] CHART. IT IS NOT A COPY OF THE [employer] PROGRESS NOTE. JAIDEN
== END ==
LOC: M PAIN 11:15
PROVIDERS: ATTEND Nurse Practitioner Family
DX: G89.29 Other chronic pain (principal); M79.18 Myalgia, other site; G43.909 Migraine, unspecified, not intractable, without status migrainosus; J45.909 Unspecified asthma, uncomplicated; Z86.59 Personal history of other mental and behavioral disorders; Z88.5 Allergy status to narcotic agent; Z91.040 Latex allergy status; Z79.899 Other long term (current) drug therapy

== ENCOUNTER → 2020-07-06 | Outpatient (REF) | payer OTHER | LOC: M PLALAB 15:31 | PROVIDERS: ATTEND Obstetrics & Gynecology | DX: A63.0 Anogenital (venereal) warts (principal) ==

== ENCOUNTER → 2020-07-27 | Outpatient (CLI) | payer OTHER ==
--- NOTE | 2020-07-30 05:59 | ECWPNPC ---
PATIENT NAME: SCARLETT COSBY : 1990 GENDER: FEMALE VISIT DATE: 07/27/2020 DISCHARGE DATE: 07/27/2038 VISIT LOCKED DATE TIME: PHYSICIAN: YULIYA JAMA RESOURCE: YULIYA JAMA REASON FOR APPOINTMENT 1. F/U HISTORY OF PRESENT ILLNESS DEPRESSION SCREENING: PHQ-9 LITTLE INTEREST OR PLEASURE IN DOING THINGSSEVERAL DAYS FEELING DOWN, DEPRESSED, OR HOPELESSMORE THAN HALF THE DAYS TROUBLE FALLING OR STAYING ASLEEP, OR SLEEPING TOO MUCHNEARLY EVERY DAY FEELING TIRED OR HAVING LITTLE ENERGYNEARLY EVERY DAY POOR APPETITE OR OVEREATING NEARLY EVERY DAY FEELING BAD ABOUT YOURSELF-OR THAT YOU ARE A FAILURE OR HAVE LET YOURSELF OR YOUR FAMILY DOWN NEARLY EVERY DAY TROUBLE CONCENTRATING ON THINGS, SUCH READING THE NEWSPAPER OR WATCHING TELEVISION NEARLY EVERY DAY MOVING OR SPEAKING SO SLOWLY THAT OTHER PEOPLE COULD HAVE NOTICED. OR THE OPPOSITE- BEING SO FIDGETY OR RESTLESS THAT YOU HAVE BEEN MOVING AROUND A LOT MORE THAN USUALMORE THAN HALF THE DAYS THOUGHTS THAT YOU WOULD BE BETTER OFF , OR OF HURTING YOURSELF IN SOME WAY?NOT AT ALL TOTAL SCORE:20 INTERPRETATIONSEVERE DEPRESSION PHQ-2 (2015 EDITION) LITTLE INTEREST OR PLEASURE IN DOING THINGS?SEVERAL DAYS FEELING DOWN, DEPRESSED, OR HOPELESS?MORE THAN HALF THE DAYS TOTAL SCORE3 GENERAL: HERE FOR FOLLOW-UP OF PERSISTENT RIGHT-SIDED NECK PAIN AND UPPER BACK PAIN. PAIN HAS INCREASED SINCE HER LAST VISIT. HAS RESPONDED WELL TO TRIGGER POINT INJECTIONS IN THE PAST. REPORTS DECREASED RANGE OF JOINT MOTION OF HER NECK DUE TO PAIN IN THAT REGION. REPORTS AGGRAVATION WITH USE OF HER RIGHT ARM. CONTINUES WITH HOME EXERCISE AND STRETCHING SINCE LAST VISIT HERE WITHOUT IMPROVEMENT. -. FALL RISK SCREENING: SCREENING : NO FALLS REPORTED IN THE LAST YEAR, ONE FALL 06/2020 , NO INJURIES, DID NOT GO TO THE ER. PAIN SCREENING: PATIENT HAS A COMPLAINT OF ACUTE OR CHRONIC PAIN :YES LOCATION OF PAIN:NECK, LEFT SHOULDER INTENSITY OF PAIN (SCALE OF 1 TO 10):5 WHAT DOES YOUR PAIN FEEL LIKE:CONTINOUS, THROBBING DURATION:CONTINOUS, CONSTANT, ALL DAY PAIN IS INCREASED BY:ACTIVITIES PAIN IS DECREASED BY:OTHERS HEAT NURSING NOTE: -. PAIN CENTER INTAKE QUESTIONS: DO YOU HAVE A HISTORY OF MRSA? :NO DO YOU TAKE A BLOOD THINNERS? :NO DO YOU HAVE ANY BLEEDING DISORDERS? :NO ANY NEW NUMBNESS OR WEAKNESS IN YOUR LEGS OR ARMS? :NO ANY PACEMAKER,DEFIBRILLATOR, OR DORSAL COLUMN STIMULATOR? :NO DO YOU HAVE ANY RASHES OR OPEN SORES? :NO ARE YOU ALLERGIC TO IV DYE? :NO ARE YOU DIABETIC? :NO ANY NEW PROBLEMS WITH YOUR MEDICATIONS? :NO HAVE YOU RECEIVED A VACCINE IN THE PAST 30 DAYS? :NO DO YOU PLAN TO RECEIVE A VACCINE IN THE NEXT 21 DAYS? :NO DO YOU NEED ANY PRESCRIPTION? :NO DO YOU TAKE ANY IMMUNOSUPPRESSIVE MEDICATIONS? :NO IS THERE A CHANCE YOU COULD BE ? :NO ARE YOU BREAST FEEDING? :NO CURRENT MEDICATIONS TAKING TOPIRAMATE 50 MG TABLET 2 TABLETS ORALLY BEFORE BEDTIME TAKING TIZANIDINE HCL 2 MG TABLET 1 TABLET ORALLY TWICE DAILY NEEDED TAKING TRAZODONE HCL 100 MG TABLET 1/2-1 TAB ORALLY BEFORE BEDTIME NEEDED TAKING SUMATRIPTAN SUCCINATE 100 MG TABLET 1/2-1 TAB ORALLY AT ONSET OF HEADACHE -MAY REPEAT ONCE AFTER 2 HOURS. MAX 2 TABS/DAY TAKING ACETAMINOPHEN 325 MG TABLET 2 TABS ORALLY EVERY 4-6 HRS NEEDED TAKING VITAMIN D (CHOLECALCIFEROL) 50 MCG (2000 UT) CAPSULE 1 CAPSULE ORALLY ONCE A DAY TAKING QVAR REDIHALER 80 MCG/ACT AEROSOL BREATH ACTIVATED 1 PUFF INHALATION ONCE A DAY TAKING ALBUTEROL SULFATE 108 (90 BASE) MCG/ACT AEROSOL POWDER BREATH ACTIVATED 1 PUFF NEEDED INHALATION EVERY 4 HRS TAKING DULOXETINE HCL 60 MG CAPSULE DELAYED RELEASE PARTICLES 1 CAPSULE ORALLY ONCE A DAY NOT-TAKING GLYBURIDE 5 MG TABLET 1 TAB ORALLY BEFORE DINNER DAILY MEDICATION LIST REVIEWED AND RECONCILED WITH THE PATIENT PAST MEDICAL HISTORY CHRONIC TENSION-TYPE HEADACHES 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 NECK PAIN LOW BACK PAIN SPONDYLOSIS OF CERVICAL SPINE SKIN SENSATION DISTURBANCE MALAISE AND FATIGUE ASTHMA DEPRESSION, ANXIETY DIABETES- NO LONGER TAKES MEDS ALLERGIES LATEX (FOR ALLERGY USE ONLY): RASH, HIVES,ITCHING - ALLERGY HYDROCODONE BITARTRATE: RASH, HIVES, ITCHING - ALLERGY SOCIAL HISTORY GENERAL: TOBACCO USE ARE YOU A:NONSMOKER LATEX QUESTIONNAIRE LATEX ALLERGY : HAVE YOU EVER DEVELOPED ANY TYPE OF REACTION AFTER HANDLING LATEX PRODUCTS SUCH RUBBER GLOVES, CONDOMS, DIAPHRAGMS, BALLOONS, SOCKS, OR UNDERWEAR?YES - PLEASE INDICATE : KNOWN LATEX ALLERGY-HIVES, RASH AND ITCHING LATEX ALLERGY : HAVE YOU EVER DEVELOPED ANY TYPE OF REACTION DURING OR AFTER DENTAL APPOINTMENT, VAGINAL/RECTAL EXAMINATION, SURGICAL PROCEDURE, OR ANY OTHER EXPOSURE?NO LATEX RISK : HAVE YOU EVER HAD ANY DIFFICULTY BREATHING OR HIVES AFTER EATING OR HANDLING ANY FRUITS, OR VEGETABLES; SUCH KIWI, BANANAS, STONE FRUITS, OR CHESTNUTSNO LATEX RISK : DO YOU HAVE A PREVIOUS PERSONAL HISTORY OF MORE THAN NINE SURGERIES, SPINA BIFIDA, OR REPEATED CATHERIZATIONS? NO LATEX RISK : ARE YOU FREQUENTLY EXPOSED TO LATEX PRODUCTS IN YOUR OCCUPATION?NO DATE ASKED : 07/27/2020 ALCOHOL USE: NO. ALCOHOL SCREENING DID YOU HAVE A DRINK CONTAINING ALCOHOL IN THE PAST YEAR?YES HOW OFTEN DID YOU HAVE SIX OR MORE DRINKS ON ONE OCCASION IN THE PAST YEAR?NEVER (0 POINTS) HOW MANY DRINKS DID YOU HAVE ON A TYPICAL DAY WHEN YOU WERE DRINKING IN THE PAST YEAR?1 OR 2 (0 POINTS) HOW OFTEN DID YOU HAVE A DRINK CONTAINING ALCOHOL IN THE PAST YEAR?MONTHLY OR LESS (1 POINT) POINTS1 INTERPRETATIONNEGATIVE RECREATIONAL DRUG USE DRUG USE?YES HOW OFTEN AND HOW MUCH? ADMITS TO OCCASSIONAL MARIJUANA CAFFEINE CAFFEINE USE?YES HOW OFTEN AND HOW MUCH? 2 LITERS OF DIET PEPSI A DAY BAPTIST [id number] NONE LANGUAGE LANGUAGES SPOKEN:HUNGARIAN EDUCATION LEVEL OF EDUCATION:HIGH SCHOOL LEARNING BARRIERS / SPECIAL NEEDS CHANGE FROM LAST VISIT?NO BARRIERS TO LEARNING?YES COMMENTS TAKES LONGER TO LEARN THINGS, NOT GOOD WITH MATH AND SOME SPELLING IS DIFFICULT, SOMETIMES NEEDS HELP WITH READING HEARING IMPAIRED?NO VISION IMPAIRED?YES :CORRECTIVE LENSES COGNITIVELY IMPAIRED?YES SOMETIMES HAS SOMEONE HELP HER WITH READING WHEN FILLING OUT PAPERS READINESS TO LEARN?YES LEARNING PREFERENCES?YES :DEMONSTRATION/VERBAL INSTRUCTION LEARNING CAPABILITIES PRESENT?YES EMOTIONAL BARRIERS?YES COMMENTS ANXIETY AND DEPRESSION SPECIAL DEVICES?YES :CANE RIGHT LEG OCCASSIONALLY GIVES OUT ON HER TANK SETTER NEEDED?NO DOMESTIC VIOLENCE DO YOU FEEL SAFE IN YOUR ENVIRONMENT?YES OCCUPATION: UNEMPLOYED. DIET: CARBOHYDRATE CONTROLLED. EXERCISE: CHASING KIDS AND WORKS OUT WITH HER DAUGHTER. MARITAL STATUS: . - PFS REFERRAL NEEDED?NO CLERGY REFERRAL NEEDED?NO PUBLIC HEALTH REFERRAL NEEDED?NO HAS THE PATIENT BEEN EDUCATED REGARDING HIS/HER PLAN OF CARE?YES HAS THE PATIENT BEEN EDUCATED REGARDING PAIN, THE RISK FOR PAIN, THE IMPORTANCE OF EFFECTIVE PAIN MANAGEMENT, AND THE PAIN ASSESSMENT PROCESS?YES ADVANCE DIRECTIVE ADVANCE DIRECTIVE DISCUSSED WITH PATIENT:YES PT DOES NOT HAVE ANY ADVANCED DIRECTIVES AND SHE DECLINES INFORMATION ON HCP AT THIS. REVIEW OF SYSTEMS CONSTITUTIONAL: ANY RECENT FEVER NO . CHILLS NO . WEIGHT CHANGE OF UNKNOWN REASONS NO . GASTROENTEROLOGY: NEW UNEXPLAINABLE CHANGES IN BOWEL CONTROL NO . CONSTIPATION NO . GENITOURINARY: ANY NEW CHANGE IN BLADDER CONTROL? NO . NEUROLOGY: NEW ONSET DIZZINESS OR NEUROLOGICAL CHANGES NOT MENTIONED NO . NEW NUMBNESS OR PAIN PATTERNS NOT MENTIONED AND PERTINENT TO TODAY'S VISIT NO . CARDIOLOGY: NEW CHEST PRESSURE NO . PATIENT DENIES NO . RESPIRATORY: UNEXPLAINABLE COUGH NO . NEW SHORTNESS OF BREATH NO . VITAL SIGNS WT 152.4 LBS, HT 52 IN, BMI 39.62 INDEX, BP 112/69 MM HG, HR 89 /MIN, RR 18 /MIN, TEMP 98.5 F, OXYGEN SAT % 99%, SAFE IN ENV? (Y/N) YES, NA INITIALS [place] 08:53T.VAMSI COBOS. EXAMINATION GENERAL EXAMINATION: GENERALAWAKE,ALERT ,PLEAASANT . PSYCHAFFECT NORMAL . LUNGS:LUNG ALMEIDA ARE CLEAR TO AUSCULTATION BILATERALLY. GOOD MOVEMENT OF AIR . HEART:S1, S2 IN A REGULAR RATE AND RHYTHM. NO SIGNIFICANT MURMURS, RUBS OR GALLOPS NOTED . CERVICAL:TRIGGER POINTS:RIGHT CERVICAL AND TRAPEZIUS ,RIGHT SHOULDER.PAIN IS AGGREVATED WITH ROJM NECK. ASSESSMENTS MYALGIA, OTHER SITE - M79.18 (PRIMARY) TREATMENT MYALGIA, OTHER SITE MEDICATION: VALIUM TAB 5MG ORALLY (DIAZEPAM) (ORDERED FOR 08/03/2020) MEDICATION: OXYCODONE HCL TAB 5MG ORALLY (ORDERED FOR 08/03/2020) NOTES: TRIGGER POINT INJECTIONS RIGHT NECK, RIGHT THORACIC, RIGHT SHOULDER REVIEWED PRE PROCEDURE INFORMATION, PATIENT VERBALIZED UNDERSTANDING [place] [facility]. PROCEDURE CODES FA211 ESTABILISHED PATIENT [facility] CHARGE DISPOSITION & COMMUNICATION FOLLOW UP POST (REASON: TRIGGER POINT INJECTIONS RIGHT NECK, RIGHT THORACIC, RIGHT SHOULDER) ELECTRONICALLY SIGNED BY FAITH MOURA ON 07/29/2020 AT 09:51 PM EDT DISCLAIMER : THIS IS A VISIT SUMMARY EXTRACTED FROM THE [employer] CHART. IT IS NOT A COPY OF THE [employer] PROGRESS NOTE. JAIDEN
== END ==
LOC: M PAIN 09:00
PROVIDERS: ATTEND Nurse Practitioner Family
DX: M79.18 Myalgia, other site (principal); G43.909 Migraine, unspecified, not intractable, without status migrainosus; J45.909 Unspecified asthma, uncomplicated; Z86.59 Personal history of other mental and behavioral disorders; Z88.5 Allergy status to narcotic agent; Z91.040 Latex allergy status; Z79.899 Other long term (current) drug therapy

== ENCOUNTER → 2020-07-30 | Outpatient (CLI) | payer OTHER | LOC: M LABSMTC 11:35 | PROVIDERS: ATTEND Anesthesiology | DX: Z11.52 Encounter for screening for COVID-19 (principal) ==

== ENCOUNTER → 2020-08-04 | Outpatient (CLI) | payer OTHER ==
[~2020-08-04] MED LIST changes: +BUPIVACAINE HCL 0.25% 10ML VIAL As Ordered ONE; +BUPIVACAINE HCL 0.25% 30ML VIAL As Ordered ONE; +TRIAMCINOLONE ACETONIDE SUSP 40 MG/ML VIAL (J3301) As Ordered ONE; +diazePAM 5MG TABLET As Ordered ONE; +oxyCODONE 5MG TAB As Ordered ONE
--- NOTE | 2020-08-07 00:25 | ECWPNPC ---
PATIENT NAME: SCARLETT COSBY : 1990 GENDER: FEMALE VISIT DATE: 08/04/2020 DISCHARGE DATE: 08/04/20 1003 VISIT LOCKED DATE TIME: PHYSICIAN: JULIA MCADAMS MD RESOURCE: JULIA MCADAMS MD REASON FOR APPOINTMENT 1. TRIGGER POINT INJECTIONS RIGHT NECK, RIGHT THORACIC, RIGHT SHOULDER HISTORY OF PRESENT ILLNESS GENERAL: -. FALL RISK SCREENING: SCREENING : NO FALLS REPORTED IN THE LAST YEAR. PAIN SCREENING: PATIENT HAS A COMPLAINT OF ACUTE OR CHRONIC PAIN :YES LOCATION OF PAIN:NECK, RIGHT SHOULDER INTENSITY OF PAIN (SCALE OF 1 TO 10):8 WHAT DOES YOUR PAIN FEEL LIKE:ACHING, INTERMITTENT, STABBING, TENDER, THROBBING, SORE DURATION:CONTINOUS PAIN IS INCREASED BY:ACTIVITIES PAIN IS DECREASED BY:USE OF PAIN MEDICATIONS, OTHERS HEAT NURSING NOTE: -. PAIN CENTER INTAKE QUESTIONS: DO YOU HAVE A HISTORY OF MRSA? :NO DO YOU TAKE A BLOOD THINNERS? :NO DO YOU HAVE ANY BLEEDING DISORDERS? :NO ANY NEW NUMBNESS OR WEAKNESS IN YOUR LEGS OR ARMS? :NO ANY PACEMAKER,DEFIBRILLATOR, OR DORSAL COLUMN STIMULATOR? :NO DO YOU HAVE ANY RASHES OR OPEN SORES? :NO ARE YOU ALLERGIC TO IV DYE? :NO ARE YOU DIABETIC? :NO ANY NEW PROBLEMS WITH YOUR MEDICATIONS? :NO HAVE YOU RECEIVED A VACCINE IN THE PAST 30 DAYS? :NO DO YOU PLAN TO RECEIVE A VACCINE IN THE NEXT 21 DAYS? :NO DO YOU TAKE ANY IMMUNOSUPPRESSIVE MEDICATIONS? :NO ANY HISTORY OF SEIZURES? :NO ANY HISTORY OF CARDIAC ISSUES OR EVENTS? :NO DO YOU HAVE ANY KIDNEY OR LIVER DISEASE? :NO DO YOU HAVE SLEEP APNEA? :NO ANY RECENT HEAD INJURY? :NO DO YOU HAVE ANY NEW INFECTIONS? :NO IS THERE A CHANCE YOU COULD BE ? :NO ARE YOU BREAST FEEDING? :NO WHEN DID YOU LAST EAT? : 08/03/20 WHEN DID YOU LAST DRINK? : 08/03/20 WHAT DID YOU LAST DRINK? : GEORGESSI NAME OF PERSON DRIVING YOU HOME? : -MOM DO YOU HAVE ANY OTHER QUESTIONS OR CONCERNS? : - CURRENT MEDICATIONS TAKING TOPIRAMATE 50 MG TABLET 2 TABLETS ORALLY BEFORE BEDTIME TAKING TIZANIDINE HCL 2 MG TABLET 1 TABLET ORALLY TWICE DAILY NEEDED, NOTES: 08/03/20 TAKING TRAZODONE HCL 100 MG TABLET 1/2-1 TAB ORALLY BEFORE BEDTIME NEEDED, NOTES: 08/02/20 TAKING SUMATRIPTAN SUCCINATE 100 MG TABLET 1/2-1 TAB ORALLY AT ONSET OF HEADACHE -MAY REPEAT ONCE AFTER 2 HOURS. MAX 2 TABS/DAY TAKING ACETAMINOPHEN 325 MG TABLET 2 TABS ORALLY EVERY 4-6 HRS NEEDED TAKING VITAMIN D (CHOLECALCIFEROL) 50 MCG (2000 UT) CAPSULE 1 CAPSULE ORALLY ONCE A DAY TAKING QVAR REDIHALER 80 MCG/ACT AEROSOL BREATH ACTIVATED 1 PUFF INHALATION ONCE A DAY TAKING ALBUTEROL SULFATE 108 (90 BASE) MCG/ACT AEROSOL POWDER BREATH ACTIVATED 2 PUFF NEEDED INHALATION EVERY 4 HRS TAKING DULOXETINE HCL 60 MG CAPSULE DELAYED RELEASE PARTICLES 1 CAPSULE ORALLY ONCE A DAY NOT-TAKING GLYBURIDE 5 MG TABLET 1 TAB ORALLY BEFORE DINNER DAILY MEDICATION LIST REVIEWED AND RECONCILED WITH THE PATIENT PAST MEDICAL HISTORY CHRONIC TENSION-TYPE HEADACHES 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 NECK PAIN LOW BACK PAIN SPONDYLOSIS OF CERVICAL SPINE SKIN SENSATION DISTURBANCE MALAISE AND FATIGUE ASTHMA DEPRESSION, ANXIETY DIABETES- NO LONGER TAKES MEDS ALLERGIES LATEX (FOR ALLERGY USE ONLY): RASH, HIVES,ITCHING - ALLERGY HYDROCODONE BITARTRATE: RASH, HIVES, ITCHING - ALLERGY SURGICAL HISTORY 2008,2015 CHOLECYSTECTOMY 2013 TONSILLECTOMY, ADENOIDECTOMY AGE 3 FAMILY HISTORY FATHER: ALIVE, ASTHMA, BACK AND NECK PROBLEMS MOTHER: ALIVE, CHF, TUMORS IN HER FEET,ASTHMA, TUMOR ON SPINE, BACK PROBLEMS, EDEMA IN LEGS, DEPRESSION, ANXIETY, DIAGNOSED WITH UNSPECIFIED HEART DISEASE, DIABETES SIBLINGS: ALIVE, SISTER HAS CHRONIC BACK PAIN, 2 BROTHERS AT 1 BROTHER(S) , 1 SISTER(S) . [facility] 1 BROTHER . SOCIAL HISTORY GENERAL: TOBACCO USE ARE YOU A:NONSMOKER LATEX QUESTIONNAIRE LATEX ALLERGY : HAVE YOU EVER DEVELOPED ANY TYPE OF REACTION AFTER HANDLING LATEX PRODUCTS SUCH RUBBER GLOVES, CONDOMS, DIAPHRAGMS, BALLOONS, SOCKS, OR UNDERWEAR?YES - PLEASE INDICATE : KNOWN LATEX ALLERGY-HIVES, RASH AND ITCHING LATEX ALLERGY : HAVE YOU EVER DEVELOPED ANY TYPE OF REACTION DURING OR AFTER DENTAL APPOINTMENT, VAGINAL/RECTAL EXAMINATION, SURGICAL PROCEDURE, OR ANY OTHER EXPOSURE?NO LATEX RISK : HAVE YOU EVER HAD ANY DIFFICULTY BREATHING OR HIVES AFTER EATING OR HANDLING ANY FRUITS, OR VEGETABLES; SUCH KIWI, BANANAS, STONE FRUITS, OR CHESTNUTSNO LATEX RISK : DO YOU HAVE A PREVIOUS PERSONAL HISTORY OF MORE THAN NINE SURGERIES, SPINA BIFIDA, OR REPEATED CATHERIZATIONS? NO LATEX RISK : ARE YOU FREQUENTLY EXPOSED TO LATEX PRODUCTS IN YOUR OCCUPATION?NO DATE ASKED : 08/03/2020 ALCOHOL USE: NO. ALCOHOL SCREENING DID YOU HAVE A DRINK CONTAINING ALCOHOL IN THE PAST YEAR?YES HOW OFTEN DID YOU HAVE SIX OR MORE DRINKS ON ONE OCCASION IN THE PAST YEAR?NEVER (0 POINTS) HOW MANY DRINKS DID YOU HAVE ON A TYPICAL DAY WHEN YOU WERE DRINKING IN THE PAST YEAR?1 OR 2 (0 POINTS) HOW OFTEN DID YOU HAVE A DRINK CONTAINING ALCOHOL IN THE PAST YEAR?MONTHLY OR LESS (1 POINT) POINTS1 INTERPRETATIONNEGATIVE RECREATIONAL DRUG USE DRUG USE?YES HOW OFTEN AND HOW MUCH? ADMITS TO OCCASSIONAL MARIJUANA CAFFEINE CAFFEINE USE?YES HOW OFTEN AND HOW MUCH? 2 LITERS OF DIET PEPSI A DAY TAOISM [id number] NONE LANGUAGE LANGUAGES SPOKEN:ARABIC EDUCATION LEVEL OF EDUCATION:HIGH SCHOOL LEARNING BARRIERS / SPECIAL NEEDS CHANGE FROM LAST VISIT?NO BARRIERS TO LEARNING?YES COMMENTS TAKES LONGER TO LEARN THINGS, NOT GOOD WITH MATH AND SOME SPELLING IS DIFFICULT, SOMETIMES NEEDS HELP WITH READING HEARING IMPAIRED?NO VISION IMPAIRED?YES :CORRECTIVE LENSES COGNITIVELY IMPAIRED?YES SOMETIMES HAS SOMEONE HELP HER WITH READING WHEN FILLING OUT PAPERS READINESS TO LEARN?YES LEARNING PREFERENCES?YES :DEMONSTRATION/VERBAL INSTRUCTION LEARNING CAPABILITIES PRESENT?YES EMOTIONAL BARRIERS?YES COMMENTS ANXIETY AND DEPRESSION SPECIAL DEVICES?YES :CANE RIGHT LEG OCCASSIONALLY GIVES OUT ON HER HOME ECONOMICS EXPERT NEEDED?NO DOMESTIC VIOLENCE DO YOU FEEL SAFE IN YOUR ENVIRONMENT?YES OCCUPATION: UNEMPLOYED. DIET: CARBOHYDRATE CONTROLLED. EXERCISE: CHASING KIDS AND WORKS OUT WITH HER DAUGHTER. MARITAL STATUS: . - PFS REFERRAL NEEDED?NO CLERGY REFERRAL NEEDED?NO PUBLIC HEALTH REFERRAL NEEDED?NO HAS THE PATIENT BEEN EDUCATED REGARDING HIS/HER PLAN OF CARE?YES HAS THE PATIENT BEEN EDUCATED REGARDING PAIN, THE RISK FOR PAIN, THE IMPORTANCE OF EFFECTIVE PAIN MANAGEMENT, AND THE PAIN ASSESSMENT PROCESS?YES ADVANCE DIRECTIVE ADVANCE DIRECTIVE DISCUSSED WITH PATIENT:YES PT DOES NOT HAVE ANY ADVANCED DIRECTIVES AND SHE DECLINES INFORMATION ON HCP AT THIS. HOSPITALIZATION/MAJOR DIAGNOSTIC PROCEDURE SURGERIES CHILDBIRTH VITAL SIGNS WT 152.4 LBS, HT 52 IN, BMI 39.62 INDEX, BP 126/64 MM HG, HR 92 /MIN, RR 16 /MIN, TEMP 97.5 F, OXYGEN SAT % 100%, SAFE IN ENV? (Y/N) Y, NA INITIALS SC 08:43, REVIEWED BY: EM. EXAMINATION GENERAL: A HISTORY AND PHYSICAL EXAM ON THE PATIENT WAS DONE ON 07/27/2020 (DATE OF ORIGINAL ASSESSMENT) IN PREPARATION OF SURGERY/PROCEDURE. I HAVE NOW REASSESSED THIS PATIENT'S HEALTH STATUS AND PERFORMED AN UPDATED EXAM TODAY. ALL CHANGES IN THE PATIENT'S HISTORY, PHYSICAL EXAM, PRE-EXISTING CONDITONS, AND INDICATIONS/CONTRAINDICATIONS TO THE PLANNED PROCEDURE AND ANESTHESIA ARE DOCUMENTED AND EVALUATED BELOW. I ATTEST TO THE ADEQUACY AND APPROPRIATENESS OF MY ASSESSMENT, AND CONFIRM THE NECESSITY FOR THE PLANNED PROCEDURE. THE PATIENT IS ALERT, ORIENTED TIMES THREE AND COOPERATIVE. LUNGS ARE CLEAR TO AUSCULTATION. HEART SHOWS REGULAR RHYTHM, NO MURMURS AND NO GALLOPS. ASSESSMENTS MYALGIA, OTHER SITE - M79.18 (PRIMARY) TREATMENT MYALGIA, OTHER SITE COMPLETION OF PROCEDURAL VISIT WHEN MEETS CRITERIADK MARKS 08/05/2020 12:50:09 PM > CRITERIA MET 08/04/20 @ 1004 MEDICATION: VALIUM TAB 5MG ORALLY (DIAZEPAM)BRIGIDO HERNANDEZ 08/04/2020 8:55:22 AM > VERIFIED DK MARKS 08/04/2020 8:56:53 AM > ADMINISTERED MEDICATION: OXYCODONE HCL TAB 5MG ORALLY BRIGIDO HERNANDEZ 08/04/2020 8:55:40 AM > VERIFIED DK MARKS 08/04/2020 8:57:09 AM > ADMINISTERED OTHERS NOTES: PAT COMPLETED 08/03/20 M AIXA COLVIN. PROCEDURES PAIN NURSING RECORD PROCEDURE IN ROOM 0840, PHYSICIAN IN ROOM 0943, START 0946, FINISH 0949, PHYSICIAN OUT OF ROOM 0950, OUT OF ROOM 1004, ECG N/A, PATIENT SHIELDED NO, SAFETY STRAP NO, PREP ALCOHOL DR. MCADAMS, DRESSING TEGADERM Cristóbal MARKS RN LOC: 1. ALERT, ORIENTEDKENDRICK ELIZABETH 08/04/2020 9:47:29 AM > RESP: 1. REGULAR, NO DYSPNEAKENDRICK ELIZABETH 08/04/2020 9:47:33 AM > COLOR: 1. PINKKENDRICK ELIZABETH 08/04/2020 9:47:36 AM > SKIN: 1. WARM, DRY, DK MARKS 08/04/2020 9:47:41 AM > POSITION: 5. SITTING, DK MARKS 08/04/2020 9:25:28 AM > VITALS: 108/66, 84, 16, 100%, DK MARKS 08/04/2020 10:05:16 AM > NOTES Cristóbal MARKS RN COMPLETION OF PROCEDURE APPOINTMENT: POST PAIN 0, DRESSING SITE DRY AND INTACT, IV N/A, GAIT STEADY, TEACHING COMPLETED, PATIENT ACKNOWLEDGES UNDERSTANDING YES, PROCEDURE APPOINTMENT COMPLETED AT 1004 PN TRIGGER POINT INJECTION WITH STEROIDS PRE PROCEDURE DIAGNOSIS 1. MYALGIA 2. PAIN AT BILATERAL NECK AREA AND BLATERAL THORACIC AREA POST PROCEDURE DIAGNOSIS 1. MYALGIA 2. PAIN AT BILATERAL NECK AREA AND BLATERAL THORACIC AREA PROCEDURE TRIGGER POINT INJECTION AT BILATERAL NECK AREA AND BLATERAL THORACIC AREA SURGEON DR. JULIA MCADAMS CHIEF OF PEDIATRIC UROLOGY NONE ANESTHESIA LOCAL PRE PROCEDURE NOTE THE PATIENT HAS A HISTORY OF CHRONIC PAIN AT THE RIGHT AND LEFT NECK AREA AND RIGHT AND LEFT THORACIC AREA. I EVALUATED THE PATIENT AND REVIEWED THE CHART. THERE IS EVIDENCE OF BANDS OF TISSUE WITH RESTRICTION OF MOVEMENT AND PRESENCE OF TRIGGER POINT AT THE RIGHT AND LEFT NECK AREA AND RIGHT AND LEFT THORACIC AREA. I WENT OVER THE RISKS, ALTERNATIVES, AND BENEFITS ASSOCIATED WITH THIS PROCEDURE. THE PATIENT WOULD LIKE TO PROCEED AND GIVE CONSENT TO PERFORMED THE PROCEDURE. THE PATIENT DENIES UNEXPLAINABLE WEIGHT LOSS, FEVER, CHILLS, OR NEW CHANGES IN URINARY OR BOWEL CONTROL. THE PATIENT IS COVID-19 NEGATIVE DESCRIPTION OF PROCEDURE THE PATIENT WAS BROUGHT TO THE PROCEDURE ROOM AND PLACED IN THE SITTING POSITION. THE AREA WAS CLEANED WITH ALCOHOL. THE PROCEDURE WAS DONE USING ASEPTIC STERILE TECHNIQUE. A TIMEOUT WAS PERFORMED WHERE THE CONSENTED SITE WAS VERIFIED WITH EVERYONE IN THE ROOM. USING A 25-GAUGE NEEDLE, TRIGGER POINTS WERE INJECTED AT THE RIGHT AND LEFT NECK AREA AND RIGHT AND LEFT THORACIC AREA WITH A TOTAL OF 40 ML OF BUPIVACAINE 0.25% AND KENALOG 40 MG. THE MEDICATIONS WERE VERIFIED WITH THE NURSE. THERE WAS NO EVIDENCE OF BLOOD OR PARESTHESIA DURING THE PROCEDURE. THE PATIENT WAS SENT TO THE RECOVERY ROOM. THE PATIENT WAS MOVING THE EXTREMITIES AND DOING WELL. THERE WERE NO COMPLICATIONS DURING THE PROCEDURE. ESTIMATED BLOOD LOSS WAS LESS THAN 5 ML POST PROCEDURE NOTE THE PROCEDURE DONE WAS DISCUSSED WITH THE PATIENT. THE PATIENT WILL BE SEEN IN A FOLLOW UP IN THE NEXT FEW WEEKS. I AM LOOKING FOR LONG LASTING PAIN RELIEF FOR THE PATIENT WITH THIS INTERVENTION. INSTRUCTIONS WERE GIVEN, QUESTIONS WERE ANSWERED, AND THE PATIENT EXPRESSED UNDERSTANDING AND AGREES WITH THE PLAN. I, LUTHER PHELPS, DOCUMENTED THE ABOVE INFORMATION ACTING A SCRIBE FOR DR. MCADAMS. I HAVE REVIEWED THE ABOVE DOCUMENT, WRITTEN BY LUTHER PHELPS, TRACK LAYER HEAD, AND I VERIFY THAT IT IS ACCURATE PROCEDURE CODES 23830 INJECT TRIGGER POINTS 3/> DISPOSITION & COMMUNICATION FOLLOW UP FOLLOW UP WITH DOUGHNUT ICER (REASON: POST TRIGGER POINT INJECTIONS BILATERAL NECK AND BILATERAL THORACIC) ELECTRONICALLY SIGNED BY JULIA MCADAMS MD, MD ON 08/06/2020 AT 05:12 PM EDT DISCLAIMER : THIS IS A VISIT SUMMARY EXTRACTED FROM THE [employer] CHART. IT IS NOT A COPY OF THE [employer] PROGRESS NOTE. JAIDEN
== END ==
LOC: M PAIN 08:30
PROVIDERS: ATTEND Anesthesiology
DX: M79.18 Myalgia, other site (principal); G44.229 Chronic tension-type headache, not intractable; G43.719 Chronic migraine without aura, intractable, without status migrainosus; M54.2 Cervicalgia; M54.5 Low back pain; M47.812 Spondylosis without myelopathy or radiculopathy, cervical region; J45.909 Unspecified asthma, uncomplicated; F32.9 Major depressive disorder, single episode, unspecified; F41.9 Anxiety disorder, unspecified; Z79.899 Other long term (current) drug therapy; Z88.5 Allergy status to narcotic agent; Z91.040 Latex allergy status
CPT/HCPCS: 20553; J3301

== ENCOUNTER → 2020-08-18 | Outpatient (CLI) | payer OTHER ==
[~2020-08-18] MED LIST changes: -BUPIVACAINE HCL 0.25% 10ML VIAL As Ordered ONE; -BUPIVACAINE HCL 0.25% 30ML VIAL As Ordered ONE; -TRIAMCINOLONE ACETONIDE SUSP 40 MG/ML VIAL (J3301) As Ordered ONE; -diazePAM 5MG TABLET As Ordered ONE; -oxyCODONE 5MG TAB As Ordered ONE
--- NOTE | 2020-08-21 02:27 | ECWPNPC ---
PATIENT NAME: SCALRETT COSBY : 1990 GENDER: FEMALE VISIT DATE: 08/18/2020 DISCHARGE DATE: 08/18/20 1008 VISIT LOCKED DATE TIME: PHYSICIAN: YULIYA JAMA RESOURCE: YULIYA JAMA REASON FOR APPOINTMENT 1. POST TRIGGER POINT INJECTIONS RIGHT NECK, RIGHT THORACIC, RIGHT SHOULDER HISTORY OF PRESENT ILLNESS GENERAL: HERE FOR POST PROCEDURE FOLLOW-UP. HAD TRIGGER POINT INJECTIONS TO RIGHT NECK, RIGHT THORACIC AND RIGHT SHOULDER ON 08/04/2020. PATIENT IS REPORTING IMPROVEMENT IN PAIN. PATIENT IS REPORTING IMPROVEMENT IN RANGE OF JOINT MOTION OF HER NECK AND ABILITY TO TOLERATE CERTAIN ACTIVITIES. IS DOING HOME STRETCHING EXERCISES. OVERALL DOING WELL POST PROCEDURE. -. FALL RISK SCREENING: SCREENING ONE FALL THIS YEAR AND HURT HER RIGHT LEG, NO MAJOR INJURIES , PATIENT STATED THAT HER LEG GAVE OUT ON HER. PAIN SCREENING: PATIENT HAS A COMPLAINT OF ACUTE OR CHRONIC PAIN :YES LOCATION OF PAIN:NECK, RIGHT SHOULDER, MID BACK, LOW BACK ONYL WHEN SHE TURNS HER HEAD, AND PAIN IS IN HER RIGHT EYE INTENSITY OF PAIN (SCALE OF 1 TO 10):2 WHAT DOES YOUR PAIN FEEL LIKE:ACHING, SHOOTING DURATION:ONLY WITH SPECIFIC ACTIVITIES, INTERMITTENT PAIN IS INCREASED BY:ACTIVITIES PAIN IS DECREASED BY:USE OF PAIN MEDICATIONS, OTHERS RESTING NURSING NOTE: -PATIENT STATED THAT SHE IS GOING THROUGH SOME THINGS WITH HER . PAIN CENTER INTAKE QUESTIONS: DO YOU HAVE A HISTORY OF MRSA? :NO DO YOU TAKE A BLOOD THINNERS? :NO DO YOU HAVE ANY BLEEDING DISORDERS? :NO ANY NEW NUMBNESS OR WEAKNESS IN YOUR LEGS OR ARMS? :YES PAIN IN THE RIGHT LEG, GOES DOWN INTO TOES ANY PACEMAKER,DEFIBRILLATOR, OR DORSAL COLUMN STIMULATOR? :NO DO YOU HAVE ANY RASHES OR OPEN SORES? :NO ARE YOU ALLERGIC TO IV DYE? :NO ARE YOU DIABETIC? :NO ANY NEW PROBLEMS WITH YOUR MEDICATIONS? :NO HAVE YOU RECEIVED A VACCINE IN THE PAST 30 DAYS? :NO DO YOU PLAN TO RECEIVE A VACCINE IN THE NEXT 21 DAYS? :NO DO YOU NEED ANY PRESCRIPTION? :NO DO YOU TAKE ANY IMMUNOSUPPRESSIVE MEDICATIONS? :NO IS THERE A CHANCE YOU COULD BE ? :NO ARE YOU BREAST FEEDING? :NO CURRENT MEDICATIONS TAKING TOPIRAMATE 50 MG TABLET 2 TABLETS ORALLY BEFORE BEDTIME TAKING TIZANIDINE HCL 2 MG TABLET 1 TABLET ORALLY TWICE DAILY NEEDED TAKING TRAZODONE HCL 100 MG TABLET 1/2-1 TAB ORALLY BEFORE BEDTIME NEEDED TAKING SUMATRIPTAN SUCCINATE 100 MG TABLET 1/2-1 TAB ORALLY AT ONSET OF HEADACHE -MAY REPEAT ONCE AFTER 2 HOURS. MAX 2 TABS/DAY TAKING ACETAMINOPHEN 325 MG TABLET 2 TABS ORALLY EVERY 4-6 HRS NEEDED TAKING VITAMIN D (CHOLECALCIFEROL) 50 MCG (2000 UT) CAPSULE 1 CAPSULE ORALLY ONCE A DAY TAKING QVAR REDIHALER 80 MCG/ACT AEROSOL BREATH ACTIVATED 1 PUFF INHALATION ONCE A DAY TAKING ALBUTEROL SULFATE 108 (90 BASE) MCG/ACT AEROSOL POWDER BREATH ACTIVATED 2 PUFF NEEDED INHALATION EVERY 4 HRS TAKING DULOXETINE HCL 60 MG CAPSULE DELAYED RELEASE PARTICLES 1 CAPSULE ORALLY ONCE A DAY NOT-TAKING GLYBURIDE 5 MG TABLET 1 TAB ORALLY BEFORE DINNER DAILY MEDICATION LIST REVIEWED AND RECONCILED WITH THE PATIENT PAST MEDICAL HISTORY CHRONIC TENSION-TYPE HEADACHES 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 NECK PAIN LOW BACK PAIN SPONDYLOSIS OF CERVICAL SPINE SKIN SENSATION DISTURBANCE MALAISE AND FATIGUE ASTHMA DEPRESSION, ANXIETY DIABETES- NO LONGER TAKES MEDS ONE FALL THIS YEAR AND HURT HER RIGHT LEG, NO MAJOR INJURIES , PATIENT STATED THAT HER LEG GAVE OUT ALLERGIES LATEX (FOR ALLERGY USE ONLY): RASH, HIVES,ITCHING - ALLERGY HYDROCODONE BITARTRATE: RASH, HIVES, ITCHING - ALLERGY SOCIAL HISTORY GENERAL: TOBACCO USE ARE YOU A:NONSMOKER LATEX QUESTIONNAIRE LATEX ALLERGY : HAVE YOU EVER DEVELOPED ANY TYPE OF REACTION AFTER HANDLING LATEX PRODUCTS SUCH RUBBER GLOVES, CONDOMS, DIAPHRAGMS, BALLOONS, SOCKS, OR UNDERWEAR?YES - PLEASE INDICATE : KNOWN LATEX ALLERGY-HIVES, RASH AND ITCHING LATEX ALLERGY : HAVE YOU EVER DEVELOPED ANY TYPE OF REACTION DURING OR AFTER DENTAL APPOINTMENT, VAGINAL/RECTAL EXAMINATION, SURGICAL PROCEDURE, OR ANY OTHER EXPOSURE?NO LATEX RISK : HAVE YOU EVER HAD ANY DIFFICULTY BREATHING OR HIVES AFTER EATING OR HANDLING ANY FRUITS, OR VEGETABLES; SUCH KIWI, BANANAS, STONE FRUITS, OR CHESTNUTSNO LATEX RISK : DO YOU HAVE A PREVIOUS PERSONAL HISTORY OF MORE THAN NINE SURGERIES, SPINA BIFIDA, OR REPEATED CATHERIZATIONS? NO LATEX RISK : ARE YOU FREQUENTLY EXPOSED TO LATEX PRODUCTS IN YOUR OCCUPATION?NO DATE ASKED : 08/18/2020 ALCOHOL USE: NO. ALCOHOL SCREENING DID YOU HAVE A DRINK CONTAINING ALCOHOL IN THE PAST YEAR?YES HOW OFTEN DID YOU HAVE SIX OR MORE DRINKS ON ONE OCCASION IN THE PAST YEAR?NEVER (0 POINTS) HOW MANY DRINKS DID YOU HAVE ON A TYPICAL DAY WHEN YOU WERE DRINKING IN THE PAST YEAR?1 OR 2 (0 POINTS) HOW OFTEN DID YOU HAVE A DRINK CONTAINING ALCOHOL IN THE PAST YEAR?MONTHLY OR LESS (1 POINT) POINTS1 INTERPRETATIONNEGATIVE RECREATIONAL DRUG USE DRUG USE?YES HOW OFTEN AND HOW MUCH? ADMITS TO OCCASSIONAL MARIJUANA CAFFEINE CAFFEINE USE?YES HOW OFTEN AND HOW MUCH? 2 LITERS OF DIET PEPSI A DAY ANABAPTIST [id number] NONE LANGUAGE LANGUAGES SPOKEN:SINGAPOREAN EDUCATION LEVEL OF EDUCATION:HIGH SCHOOL LEARNING BARRIERS / SPECIAL NEEDS CHANGE FROM LAST VISIT?NO BARRIERS TO LEARNING?YES COMMENTS TAKES LONGER TO LEARN THINGS, NOT GOOD WITH MATH AND SOME SPELLING IS DIFFICULT, SOMETIMES NEEDS HELP WITH READING HEARING IMPAIRED?NO VISION IMPAIRED?YES :CORRECTIVE LENSES COGNITIVELY IMPAIRED?YES SOMETIMES HAS SOMEONE HELP HER WITH READING WHEN FILLING OUT PAPERS READINESS TO LEARN?YES LEARNING PREFERENCES?YES :DEMONSTRATION/VERBAL INSTRUCTION LEARNING CAPABILITIES PRESENT?YES EMOTIONAL BARRIERS?YES COMMENTS ANXIETY AND DEPRESSION SPECIAL DEVICES?YES :CANE RIGHT LEG OCCASSIONALLY GIVES OUT ON HER ASSOCIATE PUBLISHER NEEDED?NO DOMESTIC VIOLENCE DO YOU FEEL SAFE IN YOUR ENVIRONMENT?YES OCCUPATION: UNEMPLOYED. DIET: CARBOHYDRATE CONTROLLED. EXERCISE: CHASING KIDS AND WORKS OUT WITH HER DAUGHTER. MARITAL STATUS: . - PFS REFERRAL NEEDED?NO CLERGY REFERRAL NEEDED?NO PUBLIC HEALTH REFERRAL NEEDED?NO HAS THE PATIENT BEEN EDUCATED REGARDING HIS/HER PLAN OF CARE?YES HAS THE PATIENT BEEN EDUCATED REGARDING PAIN, THE RISK FOR PAIN, THE IMPORTANCE OF EFFECTIVE PAIN MANAGEMENT, AND THE PAIN ASSESSMENT PROCESS?YES ADVANCE DIRECTIVE ADVANCE DIRECTIVE DISCUSSED WITH PATIENT:YES PT DOES NOT HAVE ANY ADVANCED DIRECTIVES AND SHE DECLINES INFORMATION ON HCP AT THIS. REVIEW OF SYSTEMS CONSTITUTIONAL: ANY RECENT FEVER NO . CHILLS NO . WEIGHT CHANGE OF UNKNOWN REASONS NO . GASTROENTEROLOGY: NEW UNEXPLAINABLE CHANGES IN BOWEL CONTROL NO . CONSTIPATION NO . GENITOURINARY: ANY NEW CHANGE IN BLADDER CONTROL? NO . NEUROLOGY: NEW ONSET DIZZINESS OR NEUROLOGICAL CHANGES NOT MENTIONED NO . NEW NUMBNESS OR PAIN PATTERNS NOT MENTIONED AND PERTINENT TO TODAY'S VISIT NO . CARDIOLOGY: NEW CHEST PRESSURE NO . PATIENT DENIES NO . RESPIRATORY: UNEXPLAINABLE COUGH NO . NEW SHORTNESS OF BREATH NO . VITAL SIGNS WT 151.6 LBS, HT 52 IN, BMI 39.41 INDEX, BP 120/75 MM HG, HR 82 /MIN, RR 18 /MIN, TEMP 97.8 F, OXYGEN SAT % 99%, SAFE IN ENV? (Y/N) YES, NA INITIALS AW 0936T.VAMSI COBOS. EXAMINATION GENERAL EXAMINATION: GENERALAWAKE,ALERT ,PLEASANT . PSYCHAFFECT NORMAL . LUNGS:LUNG ALMEIDA ARE CLEAR TO AUSCULTATION BILATERALLY. GOOD MOVEMENT OF AIR . HEART:S1, S2 IN A REGULAR RATE AND RHYTHM. NO SIGNIFICANT MURMURS, RUBS OR GALLOPS NOTED . ASSESSMENTS OTHER CHRONIC PAIN - G89.29 (PRIMARY) MYALGIA, OTHER SITE - M79.18 TREATMENT OTHER CHRONIC PAIN PAIN PROCEDURE LOGDATE OF PROCEDURE1PROCEDURE:TRIGGER POINT INJECTION RIGHT NECK,RIGHT THORACIC, RIGHT SHOULDERAMOUNT OF PRE SEDATEVALIUM 5MG, OXYCODONE 5MGRESULT:IIMPROVEMENT IN PAIN IN RANGE OF JOINT MOTION CONTINUES TODAY NOTES: TRY VOLTAREN GEL TO RIGHT NECK 3X DAILY.CONTINUE HOME EXCERSISE AND STRETCHING. PROCEDURE CODES FA211 ESTABILISHED PATIENT [facility] CHARGE DISPOSITION & COMMUNICATION FOLLOW UP 3 MONTHS (REASON: NECK PAIN/RESPONDS WELL TO TPI) ELECTRONICALLY SIGNED BY FAITH MOURA ON 08/20/2020 AT 10:42 AM EDT DISCLAIMER : THIS IS A VISIT SUMMARY EXTRACTED FROM THE [employer] CHART. IT IS NOT A COPY OF THE [employer] PROGRESS NOTE. JAIDEN
== END ==
LOC: M PAIN 09:45
PROVIDERS: ATTEND Nurse Practitioner Family
DX: G89.29 Other chronic pain (principal); M79.18 Myalgia, other site; G44.229 Chronic tension-type headache, not intractable; M54.2 Cervicalgia; M54.5 Low back pain; M47.812 Spondylosis without myelopathy or radiculopathy, cervical region; J45.909 Unspecified asthma, uncomplicated; F32.9 Major depressive disorder, single episode, unspecified; F41.9 Anxiety disorder, unspecified; Z79.899 Other long term (current) drug therapy; Z88.5 Allergy status to narcotic agent; Z91.040 Latex allergy status

== ENCOUNTER → 2020-10-07 | Outpatient (REF) | payer OTHER ==
[2020-10-07 17:54] LABS: BASO % 0.6 % (0.0-1.0); EOS # 0.1 10^3/uL (0.0-0.5); EOS % 0.9 % (0.0-3.0); HEMATOCRIT 37.1 % (36.0-47.0); HEMOGLOBIN 13.4 g/dl (12.0-15.5); LYMPH # 1.5 10^3/uL (1.5-5.0); LYMPH % 27.4 % (24.0-44.0); MEAN CORPUSCULAR HEMOGLOBIN 34.3 pg (27.0-33.0); MEAN CORPUSCULAR HGB CONC 36.1 g/dl (32.0-36.5); MEAN CORPUSCULAR VOLUME 94.9 fl (80.0-96.0); MONO # 0.4 10^3/uL (0.0-0.8); NEUTROPHILS # 3.4 10^3/uL (1.5-8.5); NEUTROPHILS % 63.7 % (36.0-66.0); PLATELET COUNT, AUTOMATED 155 10^3/uL (150-450); RED BLOOD COUNT 3.91 10^6/uL (4.00-5.40); WHITE BLOOD COUNT 5.3 10^3/uL (4.0-10.0)
[2020-10-07 18:11] LABS: HEMOGLOBIN A1c 5.6 %
[2020-10-07 18:28] LABS: ALT/SGPT 26 U/L (12-78); BILIRUBIN,TOTAL 0.7 MG/DL (0.2-1.0); BLOOD UREA NITROGEN 11 MG/DL (7-18); CALCIUM LEVEL 8.4 MG/DL (8.5-10.1); CARBON DIOXIDE LEVEL 23 MEQ/L (21-32); CHLORIDE LEVEL 109 MEQ/L (98-107); CHOLESTEROL LEVEL 92 MG/DL (<200); GLOMERULAR FILTRATION RATE > 60.0 (>60); GLUCOSE, FASTING 309 MG/DL (70-100); HDL CHOLESTEROL 23 MG/DL (>40); LDL CHOLESTEROL 34 MG/DL (<100); NON-HDL-C 69 MG/DL; POTASSIUM SERUM 4.4 MEQ/L (3.5-5.1); SODIUM LEVEL 138 MEQ/L (136-145); TOTAL PROTEIN 6.6 GM/DL (6.4-8.2); TRIGLYCERIDES LEVEL 177 MG/DL (<150)
[2020-10-07 18:30] LABS: TOTAL 25(OH) VITAMIN D 16.6 NG/ML (30.0-100.0)
== END ==
LOC: M LAB REF 17:38
PROVIDERS: ATTEND Nurse Practitioner Family
DX: E11.9 Type 2 diabetes mellitus without complications (principal); E66.9 Obesity, unspecified; M54.5 Low back pain; E55.9 Vitamin D deficiency, unspecified

== ENCOUNTER → 2020-11-18 | Outpatient (CLI) | payer OTHER | LOC: M PAIN 09:45 | PROVIDERS: ATTEND Anesthesiology | DX: M79.18 Myalgia, other site (principal); M54.2 Cervicalgia; G44.221 Chronic tension-type headache, intractable; G43.919 Migraine, unspecified, intractable, without status migrainosus; M54.5 Low back pain; M47.812 Spondylosis without myelopathy or radiculopathy, cervical region; J45.909 Unspecified asthma, uncomplicated; F32.9 Major depressive disorder, single episode, unspecified; F41.9 Anxiety disorder, unspecified; Z79.899 Other long term (current) drug therapy; Z88.5 Allergy status to narcotic agent; Z91.040 Latex allergy status ==

== ENCOUNTER → 2021-01-06 | Outpatient (CLI) | payer OTHER | LOC: M LABSMTC 11:05 | PROVIDERS: ATTEND Anesthesiology | DX: Z01.818 Encounter for other preprocedural examination (principal); Z11.52 Encounter for screening for COVID-19 ==

== ENCOUNTER → 2021-01-11 | Outpatient (CLI) | payer OTHER ==
[~2021-01-11] MED LIST changes: +BUPIVACAINE HCL 0.25% 10ML VIAL As Ordered ONE; +BUPIVACAINE HCL 0.25% 30ML VIAL As Ordered ONE; +TRIAMCINOLONE ACETONIDE SUSP 40 MG/ML VIAL (J3301) As Ordered ONE; +diazePAM 5MG TABLET As Ordered ONE; +oxyCODONE 5MG TAB As Ordered ONE
== END ==
LOC: M PAIN 08:30
PROVIDERS: ATTEND Anesthesiology
DX: M79.18 Myalgia, other site (principal); G44.229 Chronic tension-type headache, not intractable; G43.719 Chronic migraine without aura, intractable, without status migrainosus; M54.2 Cervicalgia; M54.50 Low back pain, unspecified; M47.812 Spondylosis without myelopathy or radiculopathy, cervical region; J45.909 Unspecified asthma, uncomplicated; F32.A Depression, unspecified; F41.9 Anxiety disorder, unspecified; E11.9 Type 2 diabetes mellitus without complications; Z88.5 Allergy status to narcotic agent; Z91.040 Latex allergy status
CPT/HCPCS: 20553; J3301

== ENCOUNTER → 2021-02-10 | Outpatient (CLI) | payer OTHER ==
[~2021-02-10] MED LIST changes: -BUPIVACAINE HCL 0.25% 10ML VIAL As Ordered ONE; -BUPIVACAINE HCL 0.25% 30ML VIAL As Ordered ONE; -TRIAMCINOLONE ACETONIDE SUSP 40 MG/ML VIAL (J3301) As Ordered ONE; -diazePAM 5MG TABLET As Ordered ONE; -oxyCODONE 5MG TAB As Ordered ONE
== END ==
LOC: M PAIN 14:15
PROVIDERS: ATTEND Anesthesiology
DX: G89.29 Other chronic pain (principal); M54.2 Cervicalgia; Z79.899 Other long term (current) drug therapy

== ENCOUNTER 2021-06-14 10:48 | Emergency (ER) | payer OTHER ==
[~2021-06-14] VITALS: Ht 154.9 cm; Wt 65.9 kg
[2021-06-14] MEDS ORDERED: SUMA100T2 (11:12)
[2021-06-14] MEDS ORDERED: TOPI100T9 (11:12)
[2021-06-14] MEDS ORDERED: TIZA2TA (11:12)
[2021-06-14] MEDS ORDERED: MIRT1TAB (11:12)
[2021-06-14] MEDS ORDERED: BUPR150T12 (11:12)
[2021-06-14] MEDS ORDERED: DULO1CAP6 (11:12)
[2021-06-14] MEDS ORDERED: TRAZ-189 (11:12)
[2021-06-14] MEDS ORDERED: ONDANSETRON 4MG/2ML VIAL IV ONE (15:35)
[2021-06-14] MEDS ORDERED: NS 1,000 ML IV ONE (15:35)
[2021-06-14] MEDS ORDERED: KETOROLAC 30 MG/ML 1ML VIAL IV ONE (15:35)
[2021-06-14 16:09] LABS: BASO % 0.4 % (0.0-1.0); EOS % 0.1 % (0.0-3.0); HEMATOCRIT 42.7 % (36.0-47.0); HEMOGLOBIN 16.2 g/dl (12.0-15.5); LYMPH % 12.6 % (24.0-44.0); MEAN CORPUSCULAR HEMOGLOBIN 33.2 pg (27.0-33.0); MEAN CORPUSCULAR VOLUME 87.5 fl (80.0-96.0); MONO # 0.6 10^3/uL (0.0-0.8); NEUTROPHILS # 6.1 10^3/uL (1.5-8.5); NEUTROPHILS % 78.5 % (36.0-66.0); PLATELET COUNT, AUTOMATED 213 10^3/uL (150-450); RED BLOOD COUNT 4.88 10^6/uL (4.00-5.40); WHITE BLOOD COUNT 7.8 10^3/uL (4.0-10.0)
[2021-06-14 16:32] LABS: ALBUMIN 4.8 GM/DL (3.2-5.2); BILIRUBIN,DIRECT 0.4 MG/DL (0.0-0.2); BILIRUBIN,TOTAL 2.8 MG/DL (0.2-1.0)
[2021-06-14] MEDS ORDERED: ISOVUE-370 76% 100ML VIAL As Ordered ONE (16:43)
[2021-06-14] MEDS ORDERED: MORPHINE 4 MG/ML 1ML VIAL/SYRINGE IV ONE ×2 (16:50→21:35)
[2021-06-14 16:59] LABS: MEAN CORPUSCULAR HGB CONC 37.9 g/dl (32.0-36.5)
[2021-06-14 17:37] LABS: ACETONE/KETONE 16.56 MG/DL (<2.81); MAGNESIUM LEVEL 1.5 MG/DL (1.8-2.4); PHOSPHORUS LEVEL 2.6 MG/DL (2.5-4.9)
[2021-06-14 18:25] LABS: HEMOGLOBIN A1c 6.8 %
[2021-06-14 19:49] LABS: VENOUS BASE EXCESS -6.2 (-2.0-2.0); VENOUS HCO3 17.7 MEQ/L (23.0-27.0); VENOUS O2 SATURATION 96.9 % (60.0-80.0); VENOUS PARTIAL PRESSURE CO2 30.7 mmHg (38.0-50.0); VENOUS PARTIAL PRESSURE O2 86.5 mmHg (30.0-50.0); VENOUS PH 7.379 UNITS (7.330-7.430); VENOUS STANDARD HCO3 19.5 MEQ/L; VENOUS TOTAL CO2 18.7 MEQ/L (24.0-28.0)
[2021-06-14] MEDS ORDERED: HumuLIN R (REGULAR) INSULIN (NovoLIN R) **100U/ML** PER UNIT IV ONE (21:00)
[2021-06-14 21:25] VITALS: BP 130/79
[2021-06-14] MEDS ORDERED: GLYB5TAB6 PO (23:00)
[2021-06-14] MEDS ORDERED: ONDA4TAB6 PO (23:00)
[2021-06-14] MEDS ORDERED: KETO10TAB PO (23:00)
== END 2021-06-14 23:31 | disposition home or self-care (01) ==
LOC: M ED 10:48
DX: K52.9 Noninfective gastroenteritis and colitis, unspecified (principal); E11.649 Type 2 diabetes mellitus with hypoglycemia without coma; K21.9 Gastro-esophageal reflux disease without esophagitis; G43.909 Migraine, unspecified, not intractable, without status migrainosus; F41.9 Anxiety disorder, unspecified; F32.A Depression, unspecified; Z91.040 Latex allergy status; Z91.018 Allergy to other foods; Z79.899 Other long term (current) drug therapy
CPT/HCPCS: 74177; 80047; 80076; 82010; 82803; 83036; 83690; 83735; 83930; 84100; 84702; 85025; 96361; 96374; 96375; 96376; 99284; J1815; J1885; J2270; J2405; Q9967

== ENCOUNTER → 2021-08-18 | Outpatient (CLI) | payer OTHER ==
[~2021-08-18] MED LIST changes: +BUPR150T12; +DULO1CAP6; +GLYB5TAB6 PO; +KETO10TAB PO; +MIRT1TAB; +ONDA4TAB6 PO; +SUMA100T2; +TIZA2TA; +TOPI100T9; +TRAZ-189
== END ==
LOC: M PAIN 11:15
PROVIDERS: ATTEND Nurse Practitioner Family
DX: M50.10 Cervical disc disorder with radiculopathy, unspecified cervical region (principal); G89.29 Other chronic pain; E11.9 Type 2 diabetes mellitus without complications; G43.909 Migraine, unspecified, not intractable, without status migrainosus; J45.909 Unspecified asthma, uncomplicated; Z86.59 Personal history of other mental and behavioral disorders; Z88.5 Allergy status to narcotic agent; Z91.040 Latex allergy status; E66.01 Morbid (severe) obesity due to excess calories; Z68.41 Body mass index [BMI] 40.0-44.9, adult; Z79.84 Long term (current) use of oral hypoglycemic drugs; Z79.899 Other long term (current) drug therapy

== ENCOUNTER 2021-08-30 21:11 | Emergency (ER) | payer OTHER ==
[~2021-08-30] VITALS: Ht 154.9 cm; Wt 69.8 kg
[2021-08-30] MEDS ORDERED: ONDANSETRON 4MG/2ML VIAL IV ONE (22:20)
[2021-08-30] MEDS: MORPHINE 2 MG/ML 1ML VIAL IV PRN ×2 (22:33→23:41)
[2021-08-30] MEDS ORDERED: ISOVUE-370 76% 100ML VIAL As Ordered ONE (22:36)
[2021-08-30 23:09] LABS: ALBUMIN 4.8 GM/DL (3.2-5.2); ALT/SGPT 17 U/L (12-78); BILIRUBIN,DIRECT 0.6 MG/DL (0.0-0.2); BILIRUBIN,TOTAL 3.4 MG/DL (0.2-1.0); LIPASE 106 U/L (73-393); TOTAL PROTEIN 7.9 GM/DL (6.4-8.2)
[2021-08-30] MEDS ORDERED: NS 1,000 ML IV ONE (23:10)
[2021-08-30 23:14] LABS: BASO # 0.1 10^3/uL (0.0-0.2); BASO % 0.6 % (0.0-1.0); EOS % 0.5 % (0.0-3.0); HEMOGLOBIN 15.6 g/dl (12.0-15.5); LYMPH # 2.2 10^3/uL (1.5-5.0); LYMPH % 25.3 % (24.0-44.0); MEAN CORPUSCULAR HEMOGLOBIN 32.2 pg (27.0-33.0); MEAN CORPUSCULAR VOLUME 86.6 fl (80.0-96.0); MONO # 0.6 10^3/uL (0.0-0.8); MONO % 6.8 % (2.0-8.0); NEUTROPHILS # 5.8 10^3/uL (1.5-8.5); NEUTROPHILS % 66.5 % (36.0-66.0); PLATELET COUNT, AUTOMATED 267 10^3/uL (150-450); RED BLOOD COUNT 4.85 10^6/uL (4.00-5.40); WHITE BLOOD COUNT 8.8 10^3/uL (4.0-10.0)
[2021-08-30 23:15] LABS: MEAN CORPUSCULAR HGB CONC 37.1 g/dl (32.0-36.5)
[2021-08-31] MEDS ORDERED: NS 1,000 ML IV ONE (00:05)
[2021-08-31 01:05] LABS: BLOOD UREA NITROGEN 20 MG/DL (7-18); CALCIUM LEVEL 9.2 MG/DL (8.5-10.1); CARBON DIOXIDE LEVEL 20 MEQ/L (21-32); CHLORIDE LEVEL 105 MEQ/L (98-107); GLOMERULAR FILTRATION RATE > 60.0 (>60); GLUCOSE, FASTING 269 MG/DL (70-100); POTASSIUM SERUM 3.7 MEQ/L (3.5-5.1); SODIUM LEVEL 138 MEQ/L (136-145)
[2021-08-31] MEDS ORDERED: PERCOCET 5MG/325MG TAB PO ONE (01:30)
[2021-08-31 01:48] VITALS: BP 128/85
[2021-08-31] MEDS ORDERED: ONDA4TAB6 PO (22:29)
== END 2021-08-31 02:44 | disposition home or self-care (01) ==
LOC: M ED 21:11
DX: K52.9 Noninfective gastroenteritis and colitis, unspecified (principal); E11.9 Type 2 diabetes mellitus without complications; G43.909 Migraine, unspecified, not intractable, without status migrainosus; K21.9 Gastro-esophageal reflux disease without esophagitis; Z79.899 Other long term (current) drug therapy
CPT/HCPCS: 74177; 80048; 80076; 81001; 83605; 83690; 84702; 85025; 93041; 96361; 96374; 96375; 96376; 99284; J2270; J2405; Q9967

== ENCOUNTER 2021-08-31 15:41 | Emergency (ER) | payer OTHER ==
[~2021-08-31] VITALS: Ht 154.9 cm; Wt 69.7 kg
[2021-08-31] MEDS ORDERED: ONDANSETRON 4MG/2ML VIAL IV ONE (16:40)
[2021-08-31] MEDS ORDERED: NS 1,000 ML IV ONE ×2 (16:40)
[2021-08-31] MEDS ORDERED: KETOROLAC 30 MG/ML 1ML VIAL IV ONE (16:40)
[2021-08-31] MEDS ORDERED: MORPHINE 4 MG/ML 1ML VIAL/SYRINGE IV ONE (17:05)
[2021-08-31 17:46] LABS: URINE PREG TEST NEGATIVE (NEGATIVE)
[2021-08-31 18:02] LABS: INR 1.03; PROTHROMBIN TIME 13.9 SECONDS (12.7-14.5)
[2021-08-31 18:11] LABS: BASO % 0.5 % (0.0-1.0); EOS % 0.1 % (0.0-3.0); LYMPH # 0.8 10^3/uL (1.5-5.0); MEAN CORPUSCULAR HEMOGLOBIN 32.2 pg (27.0-33.0); MEAN CORPUSCULAR HGB CONC 37.1 g/dl (32.0-36.5); MEAN CORPUSCULAR VOLUME 86.6 fl (80.0-96.0); MONO # 0.5 10^3/uL (0.0-0.8); MONO % 6.3 % (2.0-8.0); NEUTROPHILS # 6.2 10^3/uL (1.5-8.5); NEUTROPHILS % 82.6 % (36.0-66.0); PLATELET COUNT, AUTOMATED 187 10^3/uL (150-450); RED BLOOD COUNT 4.04 10^6/uL (4.00-5.40); WHITE BLOOD COUNT 7.6 10^3/uL (4.0-10.0)
[2021-08-31 18:17] LABS: ALBUMIN 4.1 GM/DL (3.2-5.2); ALT/SGPT 15 U/L (12-78); BILIRUBIN,DIRECT 0.4 MG/DL (0.0-0.2); BILIRUBIN,TOTAL 3.5 MG/DL (0.2-1.0); BLOOD UREA NITROGEN 10 MG/DL (7-18); CALCIUM LEVEL 8.8 MG/DL (8.5-10.1); CARBON DIOXIDE LEVEL 20 MEQ/L (21-32); CHLORIDE LEVEL 109 MEQ/L (98-107); CREATININE FOR GFR 0.72 MG/DL (0.55-1.30); GLOMERULAR FILTRATION RATE > 60.0 (>60); GLUCOSE, FASTING 307 MG/DL (70-100); LIPASE 114 U/L (73-393); POTASSIUM SERUM 3.8 MEQ/L (3.5-5.1); SODIUM LEVEL 140 MEQ/L (136-145); TOTAL PROTEIN 6.8 GM/DL (6.4-8.2)
[2021-08-31] MEDS ORDERED: HumuLIN R (REGULAR) INSULIN (NovoLIN R) **100U/ML** PER UNIT IV ONE (18:30)
[2021-08-31] MEDS ORDERED: MORPHINE 2 MG/ML 1ML VIAL IV ONE (18:55)
[2021-08-31] MEDS ORDERED: ONDA4TAB6 PO (22:29)
[2021-08-31] MEDS ORDERED: OXYCODONE/APAP 5MG/325MG(HOME DOSE PACK) PO ONE (22:30)
[2021-08-31 22:55] VITALS: BP 128/84
== END 2021-08-31 22:58 | disposition home or self-care (01) ==
LOC: M ED 15:41
DX: A04.0 Enteropathogenic Escherichia coli infection (principal); E11.9 Type 2 diabetes mellitus without complications; K21.9 Gastro-esophageal reflux disease without esophagitis; Z86.16 Personal history of COVID-19; Z91.018 Allergy to other foods; Z91.040 Latex allergy status; Z79.899 Other long term (current) drug therapy; Z87.891 Personal history of nicotine dependence
CPT/HCPCS: 74176; 80048; 80076; 83605; 83690; 84703; 85025; 85610; 86140; 87507; 93041; 96361; 96374; 96375; 96376; 99285; J1815; J1885; J2270; J2405

== ENCOUNTER → 2021-11-12 | Outpatient (CLI) | payer OTHER | LOC: M PAIN 10:15 | PROVIDERS: ATTEND Nurse Practitioner Family | DX: M50.10 Cervical disc disorder with radiculopathy, unspecified cervical region (principal); G89.29 Other chronic pain; E11.9 Type 2 diabetes mellitus without complications; G43.909 Migraine, unspecified, not intractable, without status migrainosus; J45.909 Unspecified asthma, uncomplicated; Z86.59 Personal history of other mental and behavioral disorders; Z88.5 Allergy status to narcotic agent; Z91.040 Latex allergy status; E66.01 Morbid (severe) obesity due to excess calories; Z68.41 Body mass index [BMI] 40.0-44.9, adult; Z79.84 Long term (current) use of oral hypoglycemic drugs; Z79.899 Other long term (current) drug therapy ==

== ENCOUNTER 2021-12-08 12:42 | Outpatient (RCR) | payer OTHER | END 2021-12-10 | LOC: M PT 12:42 | PROVIDERS: ATTEND Nurse Practitioner Family | DX: M50.10 Cervical disc disorder with radiculopathy, unspecified cervical region (principal) ==

== ENCOUNTER 2021-12-29 10:38 | Outpatient (RCR) | payer OTHER | END 2022-01-10 | LOC: M PT 10:38 | PROVIDERS: ATTEND Nurse Practitioner Family | DX: M50.10 Cervical disc disorder with radiculopathy, unspecified cervical region (principal) ==

== ENCOUNTER → 2022-01-04 | Outpatient (CLI) | payer OTHER ==
[2022-01-04 17:14] LABS: BASO # 0.1 10^3/uL (0.0-0.2); BASO % 0.8 % (0.0-1.0); EOS # 0.1 10^3/uL (0.0-0.5); EOS % 1.7 % (0.0-3.0); HEMATOCRIT 36.1 % (36.0-47.0); LYMPH # 1.8 10^3/uL (1.5-5.0); LYMPH % 24.3 % (24.0-44.0); MEAN CORPUSCULAR HEMOGLOBIN 33.1 pg (27.0-33.0); MEAN CORPUSCULAR VOLUME 91.9 fl (80.0-96.0); MONO # 0.5 10^3/uL (0.0-0.8); MONO % 6.5 % (2.0-8.0); NEUTROPHILS # 4.8 10^3/uL (1.5-8.5); NEUTROPHILS % 66.4 % (36.0-66.0); PLATELET COUNT, AUTOMATED 169 10^3/uL (150-450); RED BLOOD COUNT 3.93 10^6/uL (4.00-5.40); WHITE BLOOD COUNT 7.2 10^3/uL (4.0-10.0)
[2022-01-04 17:34] LABS: C REACTIVE PROTEIN QUANTITATIV < 0.30 MG/DL (0.00-0.30); FREE T4 0.86 NG/DL (0.76-1.46); RHEUMATOID FACTOR QUANT < 10.0 IU/ML (<15.0)
[2022-01-04 17:42] LABS: INR 0.91; PROTHROMBIN TIME 12.4 SECONDS (12.5-14.5)
[2022-01-04 17:43] LABS: PARTIAL THROMBOPLASTIN TIME 27.5 SECONDS (24.8-34.2)
[2022-01-04 18:22] LABS: HEPATITIS B SURFACE ANTIGEN NEGATIVE (NEGATIVE)
[2022-01-04 18:49] LABS: HEPATITIS C VIRUS ABY INDEX < 0.0 INDEX (<0.8)
[2022-01-07 13:07] LABS: ANTINUCLEAR ANTIBODIES DIRECT Negative (Negative); CYCLIC CITRULLINATED PEPTIDE 4 units (0-19); FACTOR 8 RISTOCETIN COFACTOR 62 % (50-200); FACTOR VIII ACTIVITY 64 % (56-140); FACTOR VIII AG (VON WILLEBRAN) 71 % (50-200); HEPATITIS B CORE ANTIBODY IGG Negative (Negative)
== END ==
LOC: M PLALAB 14:20
PROVIDERS: ATTEND Internal Medicine Hematology
DX: R16.1 Splenomegaly, not elsewhere classified (principal)

== ENCOUNTER → 2022-01-18 | Outpatient (CLI) | payer OTHER | LOC: M RAD 07:32 | PROVIDERS: ATTEND Internal Medicine Hematology | DX: R16.1 Splenomegaly, not elsewhere classified (principal) ==

== ENCOUNTER → 2022-02-15 | Outpatient (REF) | payer OTHER ==
[2022-02-15 13:23] LABS: HEMATOCRIT 37.7 % (36.0-47.0); HEMOGLOBIN 13.7 g/dl (12.0-15.5); MEAN CORPUSCULAR HEMOGLOBIN 32.7 pg (27.0-33.0); MEAN CORPUSCULAR HGB CONC 36.3 g/dl (32.0-36.5); PLATELET COUNT, AUTOMATED 167 10^3/uL (150-450); RED BLOOD COUNT 4.19 10^6/uL (4.00-5.40); WHITE BLOOD COUNT 7.2 10^3/uL (4.0-10.0)
[2022-02-15 13:42] LABS: ALBUMIN 4.3 G/DL (3.2-5.2); ALKALINE PHOSPHATASE 50 U/L (46-116); ALT/SGPT < 9 U/L (7.0-40); AST/SGOT 9 U/L (<34); BILIRUBIN,TOTAL 0.8 MG/DL (0.3-1.2); BLOOD UREA NITROGEN 13 MG/DL (9-23); CARBON DIOXIDE LEVEL 25 MMOL/L (20-31); CHLORIDE LEVEL 105 MMOL/L (98-107); CREATININE FOR GFR 0.61 MG/DL (0.55-1.30); GLOMERULAR FILTRATION RATE > 60.0 (>60); GLUCOSE, FASTING 172 MG/DL (60-100); POTASSIUM SERUM 4.2 MMOL/L (3.5-5.1); SODIUM LEVEL 137 MMOL/L (136-145); TOTAL PROTEIN 6.7 G/DL (5.7-8.2)
[2022-02-15 13:50] LABS: HEMOGLOBIN A1c 4.8 % (4.0-6.0)
[2022-02-15 14:11] LABS: ERYTHROCYTE SEDIMENTATION RATE 5 mm/hr (0-20)
== END ==
LOC: M LAB REF 12:40
PROVIDERS: ATTEND Pediatrics
DX: E11.9 Type 2 diabetes mellitus without complications (principal); E66.9 Obesity, unspecified; E55.9 Vitamin D deficiency, unspecified

== ENCOUNTER 2022-03-03 17:15 | Emergency (ER) | payer OTHER ==
[~2022-03-03] VITALS: Ht 154.9 cm; Wt 67.2 kg
[2022-03-03 17:15] VITALS: BP 139/81
[2022-03-03] MEDS ORDERED: GABA-1171 (17:40)
[2022-03-03] MEDS ORDERED: FLUT1INH3 (17:40)
[2022-03-03] MEDS ORDERED: MONT10TA97 (17:40)
[2022-03-03] MEDS ORDERED: TRUL10IN (17:40)
[2022-03-03] MEDS ORDERED: ALBU8.5H (17:40)
[2022-03-03] MEDS ORDERED: OMEP40CA5 (17:40)
[2022-03-03] MEDS ORDERED: NS 1,000 ML IV ONE (18:15)
[2022-03-03] MEDS ORDERED: ACETAMINOPHEN 1000MG 100ML IV BAG IV ONE (18:15)
[2022-03-03] MEDS ORDERED: ONDANSETRON 4MG 2ML VIAL IV ONE ×2 (18:15→20:55)
[2022-03-03 18:50] LABS: HCG, SERUM QUALITATIVE NEGATIVE (NEGATIVE)
[2022-03-03 18:51] LABS: BILIRUBIN,DIRECT 0.5 MG/DL (<0.4)
[2022-03-03 18:53] LABS: ALBUMIN 4.6 G/DL (3.2-5.2); ALKALINE PHOSPHATASE 55 U/L (46-116); ALT/SGPT 17 U/L (7.0-40); AST/SGOT 55 U/L (<34); BILIRUBIN,TOTAL 3.2 MG/DL (0.3-1.2); BLOOD UREA NITROGEN 10 MG/DL (9-23); CALCIUM LEVEL 9.1 MG/DL (8.5-10.1); CARBON DIOXIDE LEVEL 18 MMOL/L (20-31); CHLORIDE LEVEL 103 MMOL/L (98-107); CREATININE FOR GFR 0.55 MG/DL (0.55-1.30); GLOMERULAR FILTRATION RATE > 60.0 (>60); GLUCOSE, FASTING 205 MG/DL (60-100); LIPASE 38 U/L (12-53); POTASSIUM SERUM 4.5 MMOL/L (3.5-5.1); SODIUM LEVEL 138 MMOL/L (136-145); TOTAL PROTEIN 7.1 G/DL (5.7-8.2)
[2022-03-03 19:12] LABS: BASO % 0.4 % (0.0-1.0); EOS % 0.1 % (0.0-3.0); HEMATOCRIT 35.6 % (36.0-47.0); HEMOGLOBIN 13.2 g/dl (12.0-15.5); LYMPH # 0.7 10^3/uL (1.5-5.0); LYMPH % 7.1 % (24.0-44.0); MEAN CORPUSCULAR HEMOGLOBIN 33.1 pg (27.0-33.0); MEAN CORPUSCULAR HGB CONC 37.1 g/dl (32.0-36.5); MEAN CORPUSCULAR VOLUME 89.2 fl (80.0-96.0); MONO # 0.4 10^3/uL (0.0-0.8); MONO % 4.3 % (2.0-8.0); NEUTROPHILS # 8.6 10^3/uL (1.5-8.5); NEUTROPHILS % 87.6 % (36.0-66.0); PLATELET COUNT, AUTOMATED 203 10^3/uL (150-450); RED BLOOD COUNT 3.99 10^6/uL (4.00-5.40); WHITE BLOOD COUNT 9.8 10^3/uL (4.0-10.0)
[2022-03-03] MEDS ORDERED: ISOVUE-370 76% 100ML VIAL As Ordered ONE (19:19)
[2022-03-03] MEDS ORDERED: KETOROLAC 30 MG/ML 1ML VIAL IV ONE (19:25)
[2022-03-03] MEDS ORDERED: ONDA4TAB6 PO (20:25)
== END 2022-03-03 20:16 | disposition home or self-care (01) ==
LOC: M ED 17:15
DX: R11.0 Nausea (principal); R19.7 Diarrhea, unspecified; R16.2 Hepatomegaly with splenomegaly, not elsewhere classified; R10.9 Unspecified abdominal pain; R00.0 Tachycardia, unspecified; E11.9 Type 2 diabetes mellitus without complications; K21.9 Gastro-esophageal reflux disease without esophagitis; F41.9 Anxiety disorder, unspecified; F32.A Depression, unspecified; R06.02 Shortness of breath; Z91.040 Latex allergy status; Z91.018 Allergy to other foods; Z79.899 Other long term (current) drug therapy
CPT/HCPCS: 36415; 74177; 80048; 80076; 81000; 81015; 83690; 84703; 85025; 96361; 96374; 96375; 96376; 99284; J0131; J1885; J2405

== ENCOUNTER → 2022-03-11 | Outpatient (CLI) | payer OTHER ==
[~2022-03-11] MED LIST changes: +ALBU8.5H; +FLUT1INH3; +GABA-1171; +MONT10TA97; +OMEP40CA5; +PERC5TAB12 PO; +TRUL10IN; +VALT1TAB PO
== END ==
LOC: M PAIN 09:45
PROVIDERS: ATTEND Nurse Practitioner Family
DX: M50.10 Cervical disc disorder with radiculopathy, unspecified cervical region (principal); G89.29 Other chronic pain; E11.9 Type 2 diabetes mellitus without complications; G43.909 Migraine, unspecified, not intractable, without status migrainosus; J45.909 Unspecified asthma, uncomplicated; Z86.59 Personal history of other mental and behavioral disorders; Z88.5 Allergy status to narcotic agent; Z91.040 Latex allergy status; Z79.84 Long term (current) use of oral hypoglycemic drugs; Z79.899 Other long term (current) drug therapy

== ENCOUNTER 2022-03-12 12:05 | Emergency (ER) | payer OTHER ==
[~2022-03-12] VITALS: Ht 154.9 cm; Wt 68.3 kg
[~2022-03-12 12:05] MED LIST changes: -PERC5TAB12 PO; -VALT1TAB PO
[2022-03-12] MEDS ORDERED: SUMA100T2 (12:22)
[2022-03-12] MEDS ORDERED: ACETAMINOPHEN 500 MG TAB PO ONE (16:05)
[2022-03-12] MEDS ORDERED: valACYclovir HCL 500 MG TAB PO ONE ×2 (16:15→18:10)
[2022-03-12 16:31] LABS: BASO % 0.8 % (0.0-1.0); EOS % 0.6 % (0.0-3.0); HEMATOCRIT 34.7 % (36.0-47.0); HEMOGLOBIN 12.5 g/dl (12.0-15.5); LYMPH % 19.1 % (24.0-44.0); MEAN CORPUSCULAR HEMOGLOBIN 33.4 pg (27.0-33.0); MEAN CORPUSCULAR VOLUME 92.8 fl (80.0-96.0); MONO # 0.4 10^3/uL (0.0-0.8); MONO % 8.3 % (2.0-8.0); NEUTROPHILS # 3.7 10^3/uL (1.5-8.5); NEUTROPHILS % 70.8 % (36.0-66.0); PLATELET COUNT, AUTOMATED 190 10^3/uL (150-450); RED BLOOD COUNT 3.74 10^6/uL (4.00-5.40); WHITE BLOOD COUNT 5.2 10^3/uL (4.0-10.0)
[2022-03-12] MEDS ORDERED: KETOROLAC 30 MG/ML 1ML VIAL IV ONE (16:40)
[2022-03-12 16:52] LABS: LIPASE 34 U/L (12-53)
[2022-03-12 16:54] LABS: ALBUMIN 4.3 G/DL (3.2-5.2); ALKALINE PHOSPHATASE 47 U/L (46-116); ALT/SGPT < 9 U/L (7.0-40); AST/SGOT 14 U/L (<34); BILIRUBIN,DIRECT 0.7 MG/DL (<0.4); BILIRUBIN,TOTAL 1.6 MG/DL (0.3-1.2); HCG, SERUM QUALITATIVE NEGATIVE (NEGATIVE); TOTAL PROTEIN 6.6 G/DL (5.7-8.2)
[2022-03-12] MEDS ORDERED: NS 1,000 ML IV ONE (16:55)
[2022-03-12] MEDS ORDERED: PERC5TAB12 PO (17:57)
[2022-03-12] MEDS ORDERED: VALT1TAB PO (18:02)
[2022-03-12 18:12] VITALS: BP 135/73
[2022-03-12] MEDS ORDERED: PERCOCET 5MG/325MG TAB PO ONE (18:15)
== END 2022-03-12 18:50 | disposition home or self-care (01) ==
LOC: M ED 16:35
DX: B02.9 Zoster without complications (principal); E11.9 Type 2 diabetes mellitus without complications; R51.9 Headache, unspecified; K21.9 Gastro-esophageal reflux disease without esophagitis; Z87.891 Personal history of nicotine dependence
CPT/HCPCS: 80047; 80076; 83690; 84703; 85025; 96361; 96374; 99284; J1885

== ENCOUNTER → 2022-03-22 | Outpatient (CLI) | payer OTHER ==
[~2022-03-22] MED LIST changes: +PERC5TAB12 PO; +VALT1TAB PO
[2022-03-22 13:59] LABS: HEMATOCRIT 42.2 % (36.0-47.0); HEMOGLOBIN 15.1 g/dl (12.0-15.5); MEAN CORPUSCULAR HEMOGLOBIN 34.2 pg (27.0-33.0); MEAN CORPUSCULAR HGB CONC 35.8 g/dl (32.0-36.5); MEAN CORPUSCULAR VOLUME 95.5 fl (80.0-96.0); PLATELET COUNT, AUTOMATED 212 10^3/uL (150-450); RED BLOOD COUNT 4.42 10^6/uL (4.00-5.40); WHITE BLOOD COUNT 6.9 10^3/uL (4.0-10.0)
[2022-03-22 15:08] LABS: HIV 1&2 SCREEN CENTAUR NEGATIVE (NEGATIVE)
[2022-03-22 15:14] LABS: IMMUNOGLOBULIN A 159.1 MG/DL (40-350); IMMUNOGLOBULIN G 842 MG/DL (650-1600); IMMUNOGLOBULIN M 108.1 MG/DL (50-300)
== END ==
LOC: M PLALAB 10:26
PROVIDERS: ATTEND Internal Medicine Hematology
DX: D69.6 Thrombocytopenia, unspecified (principal)

== ENCOUNTER → 2022-04-05 | Outpatient (CLI) | payer OTHER | LOC: M RAD 07:17 | PROVIDERS: ATTEND Internal Medicine Hematology | DX: D69.6 Thrombocytopenia, unspecified (principal) ==

== ENCOUNTER → 2022-06-02 | Outpatient (CLI) | payer OTHER | LOC: M PAIN 14:00 | PROVIDERS: ATTEND Nurse Practitioner Family | DX: M51.16 Intervertebral disc disorders with radiculopathy, lumbar region (principal); G89.29 Other chronic pain; E11.9 Type 2 diabetes mellitus without complications; G43.709 Chronic migraine without aura, not intractable, without status migrainosus; J45.909 Unspecified asthma, uncomplicated; F32.A Depression, unspecified; F41.9 Anxiety disorder, unspecified; M54.2 Cervicalgia; Z86.59 Personal history of other mental and behavioral disorders; Z88.5 Allergy status to narcotic agent; Z91.040 Latex allergy status; Z79.84 Long term (current) use of oral hypoglycemic drugs; Z79.899 Other long term (current) drug therapy ==

== ENCOUNTER → 2022-06-13 | Outpatient (REF) | payer OTHER ==
[2022-06-13 20:35] LABS: ALBUMIN 4.3 G/DL (3.2-5.2); ALKALINE PHOSPHATASE 63 U/L (46-116); ALT/SGPT < 9 U/L (7.0-40); AST/SGOT < 8 U/L (<34); BILIRUBIN,TOTAL 1.4 MG/DL (0.3-1.2); BLOOD UREA NITROGEN 8 MG/DL (9-23); CALCIUM LEVEL 8.6 MG/DL (8.5-10.1); CARBON DIOXIDE LEVEL 27 MMOL/L (20-31); CHLORIDE LEVEL 101 MMOL/L (98-107); CREATININE FOR GFR 0.52 MG/DL (0.55-1.30); GLOMERULAR FILTRATION RATE > 60.0 (>60); GLUCOSE, FASTING 177 MG/DL (60-100); POTASSIUM SERUM 4.4 MMOL/L (3.5-5.1); SODIUM LEVEL 134 MMOL/L (136-145); TOTAL PROTEIN 6.8 G/DL (5.7-8.2)
[2022-06-13 22:31] LABS: HEMOGLOBIN A1c 5.6 % (4.0-6.0)
== END ==
LOC: M LAB REF 17:15
PROVIDERS: ATTEND Pediatrics
DX: E11.9 Type 2 diabetes mellitus without complications (principal); E66.9 Obesity, unspecified; E55.9 Vitamin D deficiency, unspecified

== ENCOUNTER 2022-07-01 09:54 | Outpatient (RCR) | payer OTHER | END 2022-07-10 | LOC: M PT 09:54 | PROVIDERS: ATTEND Nurse Practitioner Family | DX: M51.16 Intervertebral disc disorders with radiculopathy, lumbar region (principal) ==

== ENCOUNTER 2022-07-28 10:28 | Outpatient (RCR) | payer OTHER | END 2022-08-10 | LOC: M PT 10:28 | PROVIDERS: ATTEND Nurse Practitioner Family | DX: M51.16 Intervertebral disc disorders with radiculopathy, lumbar region (principal) ==

== ENCOUNTER → 2022-08-02 | Outpatient (CLI) | payer OTHER ==
[2022-08-02 14:01] LABS: INR 0.96
[2022-08-02 14:02] LABS: PARTIAL THROMBOPLASTIN TIME 26.7 SECONDS (24.8-34.2)
[2022-08-02 14:22] LABS: BASO # 0.1 10^3/uL (0.0-0.2); BASO % 0.7 % (0.0-1.0); EOS # 0.1 10^3/uL (0.0-0.5); HEMATOCRIT 39.7 % (36.0-47.0); HEMOGLOBIN 13.9 g/dl (12.0-15.5); LYMPH # 1.6 10^3/uL (1.5-5.0); LYMPH % 19.2 % (24.0-44.0); MEAN CORPUSCULAR VOLUME 94.3 fl (80.0-96.0); MONO # 0.6 10^3/uL (0.0-0.8); MONO % 7.3 % (2.0-8.0); NEUTROPHILS # 5.8 10^3/uL (1.5-8.5); NEUTROPHILS % 71.4 % (36.0-66.0); PLATELET COUNT, AUTOMATED 212 10^3/uL (150-450); RED BLOOD COUNT 4.21 10^6/uL (4.00-5.40); WHITE BLOOD COUNT 8.1 10^3/uL (4.0-10.0)
== END ==
LOC: M PLALAB 10:13
PROVIDERS: ATTEND Internal Medicine Hematology
DX: D69.6 Thrombocytopenia, unspecified (principal)

== ENCOUNTER → 2022-08-02 | Outpatient (CLI) | payer OTHER | LOC: M PAIN 09:15 | PROVIDERS: ATTEND Nurse Practitioner Family | DX: M46.1 Sacroiliitis, not elsewhere classified (principal); G89.29 Other chronic pain; G44.229 Chronic tension-type headache, not intractable; M54.2 Cervicalgia; G43.709 Chronic migraine without aura, not intractable, without status migrainosus; M54.50 Low back pain, unspecified; J45.909 Unspecified asthma, uncomplicated; F32.A Depression, unspecified; F41.9 Anxiety disorder, unspecified; E11.9 Type 2 diabetes mellitus without complications; Z79.899 Other long term (current) drug therapy; Z88.5 Allergy status to narcotic agent; Z91.040 Latex allergy status ==

== ENCOUNTER → 2022-09-05 | Outpatient (CLI) | payer OTHER | LOC: M PAIN 14:45 | PROVIDERS: ATTEND Nurse Practitioner Family | DX: M79.10 Myalgia, unspecified site (principal); G89.29 Other chronic pain; G44.229 Chronic tension-type headache, not intractable; G43.709 Chronic migraine without aura, not intractable, without status migrainosus; M47.812 Spondylosis without myelopathy or radiculopathy, cervical region; M54.50 Low back pain, unspecified; F41.9 Anxiety disorder, unspecified; E66.9 Obesity, unspecified; E11.9 Type 2 diabetes mellitus without complications; E78.5 Hyperlipidemia, unspecified; K21.9 Gastro-esophageal reflux disease without esophagitis; F32.9 Major depressive disorder, single episode, unspecified; Z79.899 Other long term (current) drug therapy; Z88.8 Allergy status to other drugs, medicaments and biological substances; Z88.5 Allergy status to narcotic agent; Z91.040 Latex allergy status; Z68.38 Body mass index [BMI] 38.0-38.9, adult ==

== ENCOUNTER → 2022-09-27 | Outpatient (REF) | payer OTHER | LOC: M PLALAB 14:02 | PROVIDERS: ATTEND Advanced Practice Midwife | DX: Z12.4 Encounter for screening for malignant neoplasm of cervix (principal) ==

== ENCOUNTER → 2022-10-25 | Outpatient (CLI) | payer OTHER ==
[~2022-10-25] MED LIST changes: +TRIAMCINOLONE ACETONIDE SUSP 40MG/ML 1ML VIAL As Ordered ONE; +diazePAM 5MG TABLET As Ordered ONE; +oxyCODONE 5MG TAB As Ordered ONE
== END ==
LOC: M PAIN 08:00
PROVIDERS: ATTEND Anesthesiology
DX: M79.18 Myalgia, other site (principal); G43.709 Chronic migraine without aura, not intractable, without status migrainosus; G44.229 Chronic tension-type headache, not intractable; M54.2 Cervicalgia; M54.50 Low back pain, unspecified; M47.812 Spondylosis without myelopathy or radiculopathy, cervical region; J45.909 Unspecified asthma, uncomplicated; F32.9 Major depressive disorder, single episode, unspecified; F41.9 Anxiety disorder, unspecified; G89.29 Other chronic pain; E11.9 Type 2 diabetes mellitus without complications; E78.5 Hyperlipidemia, unspecified; Z79.899 Other long term (current) drug therapy; Z88.8 Allergy status to other drugs, medicaments and biological substances; Z91.040 Latex allergy status
CPT/HCPCS: 20552; J0665; J3301

== ENCOUNTER → 2022-11-07 | Outpatient (CLI) | payer OTHER ==
[~2022-11-07] MED LIST changes: -TRIAMCINOLONE ACETONIDE SUSP 40MG/ML 1ML VIAL As Ordered ONE; -diazePAM 5MG TABLET As Ordered ONE; -oxyCODONE 5MG TAB As Ordered ONE
== END ==
LOC: M PAIN 09:45
PROVIDERS: ATTEND Nurse Practitioner Family
DX: M46.1 Sacroiliitis, not elsewhere classified (principal); G44.229 Chronic tension-type headache, not intractable; G43.919 Migraine, unspecified, intractable, without status migrainosus; M54.2 Cervicalgia; M45.0 Ankylosing spondylitis of multiple sites in spine; M47.812 Spondylosis without myelopathy or radiculopathy, cervical region; D64.9 Anemia, unspecified; J45.909 Unspecified asthma, uncomplicated; F32.A Depression, unspecified; F41.9 Anxiety disorder, unspecified; E66.9 Obesity, unspecified; E11.9 Type 2 diabetes mellitus without complications; E78.5 Hyperlipidemia, unspecified; K21.9 Gastro-esophageal reflux disease without esophagitis; R53.83 Other fatigue; R53.81 Other malaise; Z79.899 Other long term (current) drug therapy; Z88.5 Allergy status to narcotic agent; Z88.8 Allergy status to other drugs, medicaments and biological substances; Z91.040 Latex allergy status

== ENCOUNTER → 2022-12-14 | Outpatient (CLI) | payer OTHER | LOC: M PAIN 14:30 | PROVIDERS: ATTEND Anesthesiology | DX: M79.18 Myalgia, other site (principal); M79.12 Myalgia of auxiliary muscles, head and neck; M25.511 Pain in right shoulder; G43.709 Chronic migraine without aura, not intractable, without status migrainosus; G44.229 Chronic tension-type headache, not intractable; M54.2 Cervicalgia; M54.50 Low back pain, unspecified; M47.812 Spondylosis without myelopathy or radiculopathy, cervical region; J45.909 Unspecified asthma, uncomplicated; F32.9 Major depressive disorder, single episode, unspecified; F41.9 Anxiety disorder, unspecified; E11.9 Type 2 diabetes mellitus without complications; E66.9 Obesity, unspecified; E78.5 Hyperlipidemia, unspecified; K21.9 Gastro-esophageal reflux disease without esophagitis; Z79.899 Other long term (current) drug therapy; Z88.5 Allergy status to narcotic agent; Z88.8 Allergy status to other drugs, medicaments and biological substances; Z91.030 Bee allergy status ==

== ENCOUNTER → 2022-12-22 | Outpatient (CLI) | payer OTHER | LOC: M PAIN 10:45 | PROVIDERS: ATTEND Nurse Practitioner Family | DX: M46.1 Sacroiliitis, not elsewhere classified (principal); G89.29 Other chronic pain; G44.229 Chronic tension-type headache, not intractable; G43.709 Chronic migraine without aura, not intractable, without status migrainosus; M54.2 Cervicalgia; M54.50 Low back pain, unspecified; M47.812 Spondylosis without myelopathy or radiculopathy, cervical region; J45.909 Unspecified asthma, uncomplicated; F32.9 Major depressive disorder, single episode, unspecified; F41.9 Anxiety disorder, unspecified; E11.9 Type 2 diabetes mellitus without complications; E66.9 Obesity, unspecified; E78.5 Hyperlipidemia, unspecified; K21.9 Gastro-esophageal reflux disease without esophagitis; Z79.899 Other long term (current) drug therapy; Z88.5 Allergy status to narcotic agent; Z88.8 Allergy status to other drugs, medicaments and biological substances; Z91.040 Latex allergy status ==

== ENCOUNTER → 2023-01-20 | Outpatient (CLI) | payer OTHER | LOC: M RAD 15:53 | PROVIDERS: ATTEND Nurse Practitioner Family | DX: M46.1 Sacroiliitis, not elsewhere classified (principal) ==

== ENCOUNTER → 2023-01-26 | Outpatient (CLI) | payer OTHER ==
[~2023-01-26] MED LIST changes: +TRIAMCINOLONE ACETONIDE SUSP 40MG/ML 1ML VIAL As Ordered ONE; +diazePAM 5MG TABLET As Ordered ONE; +oxyCODONE 5MG TAB As Ordered ONE
== END ==
LOC: M PAIN 10:15
PROVIDERS: ATTEND Anesthesiology
DX: M79.18 Myalgia, other site (principal); G44.229 Chronic tension-type headache, not intractable; G43.719 Chronic migraine without aura, intractable, without status migrainosus; M54.2 Cervicalgia; M54.50 Low back pain, unspecified; M47.812 Spondylosis without myelopathy or radiculopathy, cervical region; J45.909 Unspecified asthma, uncomplicated; F32.A Depression, unspecified; F41.9 Anxiety disorder, unspecified; E11.9 Type 2 diabetes mellitus without complications; E66.9 Obesity, unspecified; E78.5 Hyperlipidemia, unspecified; K21.9 Gastro-esophageal reflux disease without esophagitis; Z79.899 Other long term (current) drug therapy; Z88.8 Allergy status to other drugs, medicaments and biological substances; Z88.5 Allergy status to narcotic agent; Z91.040 Latex allergy status
CPT/HCPCS: 20552; J0665; J3301

== ENCOUNTER → 2023-02-17 | Outpatient (CLI) | payer OTHER ==
[~2023-02-17] MED LIST changes: -TRIAMCINOLONE ACETONIDE SUSP 40MG/ML 1ML VIAL As Ordered ONE; -diazePAM 5MG TABLET As Ordered ONE; -oxyCODONE 5MG TAB As Ordered ONE
== END ==
LOC: M PAIN 11:30
PROVIDERS: ATTEND Nurse Practitioner Family
DX: M46.1 Sacroiliitis, not elsewhere classified (principal); G89.29 Other chronic pain; Z88.5 Allergy status to narcotic agent; Z88.8 Allergy status to other drugs, medicaments and biological substances; Z91.040 Latex allergy status; Z79.899 Other long term (current) drug therapy

== ENCOUNTER → 2023-02-27 | Outpatient (CLI) | payer OTHER ==
[~2023-02-27] MED LIST changes: +AMOX875T2 PO; +PSEU30TA86 PO
== END ==
LOC: M PAIN 09:30
PROVIDERS: ATTEND Nurse Practitioner Family
DX: M46.1 Sacroiliitis, not elsewhere classified (principal); M54.50 Low back pain, unspecified; M54.2 Cervicalgia; M47.812 Spondylosis without myelopathy or radiculopathy, cervical region; Z79.899 Other long term (current) drug therapy; Z88.5 Allergy status to narcotic agent; Z88.8 Allergy status to other drugs, medicaments and biological substances; Z91.040 Latex allergy status

== ENCOUNTER 2023-03-13 11:23 | Emergency (ER) | payer MEDICAID, OTHER, SELFPAY ==
[~2023-03-13] VITALS: Ht 152.4 cm; Wt 65.2 kg
[~2023-03-13 11:23] MED LIST changes: -AMOX875T2 PO; -PSEU30TA86 PO
[2023-03-13] MEDS ORDERED: OXYMETAZOLINE 0.05% NASAL SPRAY (AFRIN) ONE (12:25)
[2023-03-13] MEDS ORDERED: AUGMENTIN 875 MG TAB PO ONE (12:25)
[2023-03-13] MEDS ORDERED: AMOX875T2 PO (12:41)
[2023-03-13] MEDS ORDERED: PSEU30TA86 PO (12:41)
[2023-03-13 12:50] VITALS: BP 137/83; TEMP 97.8; O2SAT 98
== END 2023-03-13 12:51 | disposition home or self-care (01) ==
LOC: M ED 11:23
DX: H65.02 Acute serous otitis media, left ear (principal); H72.91 Unspecified perforation of tympanic membrane, right ear; E11.9 Type 2 diabetes mellitus without complications; Z91.040 Latex allergy status; Z79.51 Long term (current) use of inhaled steroids; Z79.899 Other long term (current) drug therapy

== ENCOUNTER → 2023-03-21 | Outpatient (CLI) | payer MEDICAID ==
[~2023-03-21] MED LIST changes: +AMOX875T2 PO; +PSEU30TA86 PO
== END ==
LOC: M SOG 07:52
PROVIDERS: ATTEND Physician Assistant
DX: M25.511 Pain in right shoulder (principal)

== ENCOUNTER → 2023-04-05 | Outpatient (REF) | payer MEDICAID, OTHER ==
[2023-04-05 14:30] LABS: HEMOGLOBIN A1c 7.2 % (4.0-6.0)
[2023-04-05 14:41] LABS: ALBUMIN 4.4 G/DL (3.2-5.2); ALKALINE PHOSPHATASE 69 U/L (46-116); ALT/SGPT 14 U/L (7.0-40); AST/SGOT < 8 U/L (<34); BILIRUBIN,TOTAL 1.3 MG/DL (0.3-1.2); BLOOD UREA NITROGEN 8 MG/DL (9-23); CALCIUM LEVEL 9.3 MG/DL (8.5-10.1); CARBON DIOXIDE LEVEL 26 MMOL/L (20-31); CHLORIDE LEVEL 101 MMOL/L (98-107); CHOLESTEROL LEVEL 147 MG/DL (<200); CREATININE FOR GFR 0.38 MG/DL (0.55-1.30); GLOMERULAR FILTRATION RATE > 60.0 (>60); GLUCOSE, FASTING 383 MG/DL (60-100); POTASSIUM SERUM 4.8 MMOL/L (3.5-5.1); SODIUM LEVEL 132 MMOL/L (136-145); TOTAL PROTEIN 7.3 G/DL (5.7-8.2); TRIGLYCERIDES LEVEL 110 MG/DL (<150)
[2023-04-05 14:43] LABS: THYROID STIMULATING HORMONE 2.855 uIU/ML (0.55-4.78)
== END ==
LOC: M LAB REF 12:45
PROVIDERS: ATTEND Pediatrics
DX: E11.9 Type 2 diabetes mellitus without complications (principal); E66.9 Obesity, unspecified; E55.9 Vitamin D deficiency, unspecified

== ENCOUNTER → 2023-04-25 | Outpatient (CLI) | payer OTHER ==
[~2023-04-25] MED LIST changes: +ISOVUE-M 300 61% 15ML VIAL As Ordered ONE; +LIDOCAINE 1% SDV 30ML VIAL As Ordered ONE; +TRIAMCINOLONE ACETONIDE SUSP 40MG/ML 1ML VIAL As Ordered ONE; +diazePAM 5MG TABLET As Ordered ONE; +diphenhydrAMINE 25MG CAP As Ordered ONE; +oxyCODONE 5MG TAB As Ordered ONE
== END ==
LOC: M PAIN 11:00
PROVIDERS: ATTEND Anesthesiology
DX: M46.1 Sacroiliitis, not elsewhere classified (principal); G44.229 Chronic tension-type headache, not intractable; M54.2 Cervicalgia; M54.50 Low back pain, unspecified; M47.812 Spondylosis without myelopathy or radiculopathy, cervical region; J45.909 Unspecified asthma, uncomplicated; F32.9 Major depressive disorder, single episode, unspecified; F41.9 Anxiety disorder, unspecified; E11.9 Type 2 diabetes mellitus without complications; E78.5 Hyperlipidemia, unspecified; K21.9 Gastro-esophageal reflux disease without esophagitis; Z79.899 Other long term (current) drug therapy; Z88.5 Allergy status to narcotic agent; Z88.8 Allergy status to other drugs, medicaments and biological substances; Z91.040 Latex allergy status; G89.29 Other chronic pain
CPT/HCPCS: 27096; J0665; J3301; Q9967

== ENCOUNTER 2023-05-08 07:21 | Emergency (ER) | payer OTHER ==
[~2023-05-08] VITALS: Ht 154.9 cm; Wt 65.9 kg
[~2023-05-08 07:21] MED LIST changes: -ISOVUE-M 300 61% 15ML VIAL As Ordered ONE; -LIDOCAINE 1% SDV 30ML VIAL As Ordered ONE; -TRIAMCINOLONE ACETONIDE SUSP 40MG/ML 1ML VIAL As Ordered ONE; -diazePAM 5MG TABLET As Ordered ONE; -diphenhydrAMINE 25MG CAP As Ordered ONE; -oxyCODONE 5MG TAB As Ordered ONE
[2023-05-08] MEDS: valACYclovir HCL 500 MG TAB PO ONE (09:07)
[2023-05-08] MEDS: traMADol 50 MG TAB PO ONE (09:07)
[2023-05-08] MEDS ORDERED: VALA1TAB5 PO (10:39)
[2023-05-08 10:52] VITALS: BP 138/81; TEMP 97.2; O2SAT 99
[2023-05-08 11:27] LABS: Trichomonas vaginalis (AMP) NOT DETECTED (NEGATIVE)
[2023-05-08 11:51] LABS: GC DNA AMPLIFICATION NEGATIVE (NEGATIVE)
== END 2023-05-08 11:00 | disposition home or self-care (01) ==
LOC: M ED 07:21
DX: B00.9 Herpesviral infection, unspecified (principal); E11.9 Type 2 diabetes mellitus without complications; R87.810 Cervical high risk human papillomavirus (HPV) DNA test positive; K80.20 Calculus of gallbladder without cholecystitis without obstruction; Z88.8 Allergy status to other drugs, medicaments and biological substances; Z91.040 Latex allergy status; Z91.09 Other allergy status, other than to drugs and biological substances; Z79.51 Long term (current) use of inhaled steroids; Z79.899 Other long term (current) drug therapy; Z79.2 Long term (current) use of antibiotics

== ENCOUNTER → 2023-05-23 | Outpatient (CLI) | payer OTHER ==
[~2023-05-23] MED LIST changes: +VALA1TAB5 PO
== END ==
LOC: M PAIN 10:00
PROVIDERS: ATTEND Nurse Practitioner Family
DX: M46.1 Sacroiliitis, not elsewhere classified (principal); G89.29 Other chronic pain; M54.2 Cervicalgia; M54.50 Low back pain, unspecified; M47.812 Spondylosis without myelopathy or radiculopathy, cervical region; J45.909 Unspecified asthma, uncomplicated; E66.9 Obesity, unspecified; E11.9 Type 2 diabetes mellitus without complications; E78.5 Hyperlipidemia, unspecified; K21.9 Gastro-esophageal reflux disease without esophagitis; G43.709 Chronic migraine without aura, not intractable, without status migrainosus; Z79.899 Other long term (current) drug therapy; Z88.5 Allergy status to narcotic agent; Z88.8 Allergy status to other drugs, medicaments and biological substances; Z91.040 Latex allergy status

== ENCOUNTER → 2023-06-06 | Outpatient (CLI) | payer OTHER | LOC: M PAIN 15:30 | PROVIDERS: ATTEND Nurse Practitioner Family | DX: M51.16 Intervertebral disc disorders with radiculopathy, lumbar region (principal); G89.29 Other chronic pain; M47.812 Spondylosis without myelopathy or radiculopathy, cervical region; J45.909 Unspecified asthma, uncomplicated; E11.9 Type 2 diabetes mellitus without complications; E78.5 Hyperlipidemia, unspecified; K21.9 Gastro-esophageal reflux disease without esophagitis; G44.229 Chronic tension-type headache, not intractable; Z79.899 Other long term (current) drug therapy; Z88.5 Allergy status to narcotic agent; Z88.8 Allergy status to other drugs, medicaments and biological substances; Z91.040 Latex allergy status ==

== ENCOUNTER → 2023-07-11 | Outpatient (CLI) | payer OTHER ==
[~2023-07-11] MED LIST changes: -PSEU30TA86 PO; +PSEU30TA87 PO
== END ==
LOC: M PLAIMG 10:22
PROVIDERS: ATTEND Nurse Practitioner Family
DX: M51.16 Intervertebral disc disorders with radiculopathy, lumbar region (principal)

== ENCOUNTER → 2023-08-01 | Outpatient (CLI) | payer OTHER | LOC: M PAIN 10:00 | PROVIDERS: ATTEND Nurse Practitioner Family | DX: M51.16 Intervertebral disc disorders with radiculopathy, lumbar region (principal); M25.551 Pain in right hip; G89.29 Other chronic pain; M54.2 Cervicalgia; M47.812 Spondylosis without myelopathy or radiculopathy, cervical region; J45.909 Unspecified asthma, uncomplicated; F32.9 Major depressive disorder, single episode, unspecified; F41.9 Anxiety disorder, unspecified; E78.5 Hyperlipidemia, unspecified; K21.9 Gastro-esophageal reflux disease without esophagitis; G44.229 Chronic tension-type headache, not intractable; G43.919 Migraine, unspecified, intractable, without status migrainosus; Z79.899 Other long term (current) drug therapy; Z88.8 Allergy status to other drugs, medicaments and biological substances; Z91.040 Latex allergy status ==

== ENCOUNTER → 2023-08-15 | Outpatient (REF) | payer OTHER ==
[~2023-08-15] MED LIST changes: +ONDA-282 PO; -ONDA4TAB6 PO
[2023-08-15 19:23] LABS: BLOOD UREA NITROGEN 10 MG/DL (9-23); CALCIUM LEVEL 9.5 MG/DL (8.5-10.1); CARBON DIOXIDE LEVEL 29 MMOL/L (20-31); CHLORIDE LEVEL 102 MMOL/L (98-107); CREATININE FOR GFR 0.45 MG/DL (0.55-1.30); GLOMERULAR FILTRATION RATE > 60.0 (>60); GLUCOSE, FASTING 257 MG/DL (60-100); POTASSIUM SERUM 5.1 MMOL/L (3.5-5.1); SODIUM LEVEL 136 MMOL/L (136-145)
== END ==
LOC: M LAB REF 18:05
PROVIDERS: ATTEND Pediatrics
DX: E87.1 Hypo-osmolality and hyponatremia (principal)

== ENCOUNTER 2023-09-07 11:26 | Outpatient (RCR) | payer OTHER | END 2023-09-10 | LOC: M PT 11:26 | PROVIDERS: ATTEND Nurse Practitioner Family | DX: M54.50 Low back pain, unspecified (principal); M79.18 Myalgia, other site ==

== ENCOUNTER → 2023-09-29 | Outpatient (CLI) | payer OTHER | LOC: M PAIN 16:30 | PROVIDERS: ATTEND Nurse Practitioner Family | DX: M51.16 Intervertebral disc disorders with radiculopathy, lumbar region (principal); M25.551 Pain in right hip; G89.29 Other chronic pain; G44.229 Chronic tension-type headache, not intractable; G43.709 Chronic migraine without aura, not intractable, without status migrainosus; M54.2 Cervicalgia; M47.812 Spondylosis without myelopathy or radiculopathy, cervical region; J45.909 Unspecified asthma, uncomplicated; F32.A Depression, unspecified; F41.9 Anxiety disorder, unspecified; E66.9 Obesity, unspecified; E11.9 Type 2 diabetes mellitus without complications; E78.5 Hyperlipidemia, unspecified; K21.9 Gastro-esophageal reflux disease without esophagitis; Z79.899 Other long term (current) drug therapy; Z88.8 Allergy status to other drugs, medicaments and biological substances; Z91.040 Latex allergy status; Z68.29 Body mass index [BMI] 29.0-29.9, adult ==

== ENCOUNTER → 2023-09-29 | Outpatient (CLI) | payer OTHER | LOC: M RAD 14:23 | PROVIDERS: ATTEND Pediatrics | DX: M79.605 Pain in left leg (principal) ==

== ENCOUNTER → 2023-10-19 | Outpatient (REF) | payer OTHER ==
[2023-10-19 13:40] LABS: CREATININE, URINE 57.3 MG/DL; MAU/CREAT RATIO 5.2 MCG/MG (0.0-30.0)
== END ==
LOC: M LAB REF 12:18
PROVIDERS: ATTEND Pediatrics
DX: E11.9 Type 2 diabetes mellitus without complications (principal)

== ENCOUNTER → 2023-10-23 | Outpatient (CLI) | payer OTHER ==
[2023-10-23 13:33] LABS: HEMOGLOBIN A1c 4.8 % (4.0-6.0)
== END ==
LOC: M WUC 09:34
PROVIDERS: ATTEND Pediatrics
DX: E11.9 Type 2 diabetes mellitus without complications (principal)

== ENCOUNTER → 2023-11-08 | Outpatient (CLI) | payer OTHER | LOC: M RAD 12:32 | PROVIDERS: ATTEND Nurse Practitioner Family | DX: M25.551 Pain in right hip (principal) ==

== ENCOUNTER 2023-11-17 16:15 | Emergency (ER) | payer OTHER ==
[~2023-11-17] VITALS: Ht 152.4 cm; Wt 67.7 kg
[2023-11-17] MEDS ORDERED: FARX1TAB5 (16:33)
[2023-11-17] MEDS ORDERED: GABA-282 (16:33)
[2023-11-17] MEDS ORDERED: AMIT10TA7 (16:33)
[2023-11-17 17:31] LABS: BASO % 0.6 % (0.0-1.0); EOS # 0.1 10^3/uL (0.0-0.5); EOS % 0.8 % (0.0-3.0); HEMATOCRIT 34.4 % (36.0-47.0); HEMOGLOBIN 12.5 g/dl (12.0-15.5); LYMPH # 1.4 10^3/uL (1.5-5.0); LYMPH % 20.8 % (24.0-44.0); MEAN CORPUSCULAR HGB CONC 36.3 g/dl (32.0-36.5); MEAN CORPUSCULAR VOLUME 93.5 fl (80.0-96.0); MONO # 0.5 10^3/uL (0.0-0.8); MONO % 6.9 % (2.0-8.0); NEUTROPHILS # 4.6 10^3/uL (1.5-8.5); NEUTROPHILS % 70.6 % (36.0-66.0); PLATELET COUNT, AUTOMATED 163 10^3/uL (150-450); PROTHROMBIN TIME 12.9 SECONDS (12.5-14.5); RED BLOOD COUNT 3.68 10^6/uL (4.00-5.40); WHITE BLOOD COUNT 6.5 10^3/uL (4.0-10.0)
[2023-11-17 17:41] LABS: CPK CREATINE PHOSPHOKINASE 24 U/L (34-145)
[2023-11-17 17:42] LABS: ALBUMIN 4.1 G/DL (3.2-5.2); ALKALINE PHOSPHATASE 49 U/L (46-116); ALT/SGPT 9 U/L (7.0-40); AST/SGOT < 8 U/L (<34); BILIRUBIN,DIRECT 0.5 MG/DL (<0.4); BILIRUBIN,TOTAL 1.3 MG/DL (0.3-1.2); BLOOD UREA NITROGEN 10 MG/DL (9-23); CALCIUM LEVEL 8.8 MG/DL (8.5-10.1); CARBON DIOXIDE LEVEL 28 MMOL/L (20-31); CHLORIDE LEVEL 107 MMOL/L (98-107); CK-MB VALUE MASS < 1.0 NG/ML (<3.6); CREATININE FOR GFR 0.45 MG/DL (0.55-1.30); GLOMERULAR FILTRATION RATE > 60.0 (>60); GLUCOSE, FASTING 180 MG/DL (60-100); MB/CK RELATIVE INDEX 4.16 (< OR =4); POTASSIUM SERUM 3.7 MMOL/L (3.5-5.1); SODIUM LEVEL 139 MMOL/L (136-145); TOTAL PROTEIN 6.5 G/DL (5.7-8.2)
[2023-11-17 18:05] LABS: HCG, SERUM QUALITATIVE NEGATIVE (NEGATIVE)
[2023-11-17 18:19] LABS: APPEARANCE, URINE CLEAR (CLEAR); BACTERIA, URINE AUTO NEGATIVE (NEGATIVE); BILIRUBIN, URINE AUTO NEGATIVE (NEGATIVE); BLOOD, URINE BLOOD 2+ (NEGATIVE); COLOR, URINE YELLOW (YELLOW); GLUCOSE, URINE (UA) AUTO 2+ mg/dL (NEGATIVE); KETONE, URINE AUTO NEGATIVE (NEGATIVE); LEUKOCYTE ESTERASE, URINE AUTO 2+ (NEGATIVE); MUCUS, URINE SMALL (NEGATIVE); NITRITE, URINE AUTO NEGATIVE (NEGATIVE); PROTEIN, URINE AUTO NEGATIVE (NEGATIVE); RBC, URINE AUTO 10 /HPF (0-3); SPECIFIC GRAVITY URINE AUTO 1.016 (1.002-1.035); SQUAMOUS EPITHELIAL CELL UR AU 7 /HPF (0-6); WBC, URINE AUTO 16 /HPF (0-3)
[2023-11-17 20:45] VITALS: BP 135/71; TEMP 97.4; O2SAT 100
== END 2023-11-17 21:05 | disposition home or self-care (01) ==
LOC: M ED 16:15
DX: R22.43 Localized swelling, mass and lump, lower limb, bilateral (principal); E11.9 Type 2 diabetes mellitus without complications; K21.9 Gastro-esophageal reflux disease without esophagitis; E78.5 Hyperlipidemia, unspecified; F12.10 Cannabis abuse, uncomplicated; F10.10 Alcohol abuse, uncomplicated; Z88.5 Allergy status to narcotic agent; Z91.040 Latex allergy status; Z79.51 Long term (current) use of inhaled steroids; Z79.899 Other long term (current) drug therapy

== ENCOUNTER → 2023-12-04 | Outpatient (REF) | payer OTHER ==
[~2023-12-04] MED LIST changes: +AMIT10TA7; +FARX1TAB5; +GABA-282
[2023-12-04 12:00] LABS: APPEARANCE, URINE CLOUDY (CLEAR); BACTERIA, URINE AUTO NEGATIVE (NEGATIVE); BILIRUBIN, URINE AUTO NEGATIVE (NEGATIVE); BLOOD, URINE BLOOD 2+ (NEGATIVE); COLOR, URINE YELLOW (YELLOW); GLUCOSE, URINE (UA) AUTO 3+ mg/dL (NEGATIVE); KETONE, URINE AUTO NEGATIVE (NEGATIVE); LEUKOCYTE ESTERASE, URINE AUTO TRACE (NEGATIVE); MUCUS, URINE SMALL (NEGATIVE); NITRITE, URINE AUTO NEGATIVE (NEGATIVE); PROTEIN, URINE AUTO NEGATIVE (NEGATIVE); RBC, URINE AUTO 2 /HPF (0-3); SPECIFIC GRAVITY URINE AUTO 1.036 (1.002-1.035); SQUAMOUS EPITHELIAL CELL UR AU 16 /HPF (0-6); UROBILINOGEN, URINE AUTO 0.2 mg/dL (0.0-2.0); WBC, URINE AUTO 1 /HPF (0-3)
[2023-12-04 19:17] LABS: BLOOD UREA NITROGEN 11 MG/DL (9-23); CALCIUM LEVEL 9.6 MG/DL (8.5-10.1); CARBON DIOXIDE LEVEL 26 MMOL/L (20-31); CHLORIDE LEVEL 103 MMOL/L (98-107); CREATININE FOR GFR 0.55 MG/DL (0.55-1.30); GLOMERULAR FILTRATION RATE > 60.0 (>60); GLUCOSE, FASTING 246 MG/DL (60-100); POTASSIUM SERUM 5.2 MMOL/L (3.5-5.1); SODIUM LEVEL 135 MMOL/L (136-145)
== END ==
LOC: M LAB REF 11:24
PROVIDERS: ATTEND Pediatrics
DX: R82.90 Unspecified abnormal findings in urine (principal); M79.89 Other specified soft tissue disorders

== ENCOUNTER → 2024-02-20 | Outpatient (REF) | payer OTHER ==
[~2024-02-20] MED LIST changes: +GABA-1172; -GABA-282
[2024-02-20 18:45] LABS: HEMOGLOBIN A1c 6.6 % (4.0-6.0)
[2024-02-20 18:46] LABS: CHOLESTEROL RISK RATIO 4.89 (<5); HDL CHOLESTEROL 29.4 MG/DL (>40); LDL CHOLESTEROL 71.2 MG/DL (<100); NON-HDL-C 114.6 MG/DL
[2024-02-20 18:48] LABS: THYROID STIMULATING HORMONE 2.231 uIU/ML (0.55-4.78)
== END ==
LOC: M LAB REF 16:49
PROVIDERS: ATTEND Pediatrics
DX: E11.9 Type 2 diabetes mellitus without complications (principal)

== ENCOUNTER → 2024-04-01 | Outpatient (CLI) | payer OTHER | LOC: M PAIN 17:00 | PROVIDERS: ATTEND Nurse Practitioner Family | DX: M51.16 Intervertebral disc disorders with radiculopathy, lumbar region (principal); M25.551 Pain in right hip; M53.3 Sacrococcygeal disorders, not elsewhere classified; G89.29 Other chronic pain; M54.2 Cervicalgia; M47.812 Spondylosis without myelopathy or radiculopathy, cervical region; J45.909 Unspecified asthma, uncomplicated; F32.9 Major depressive disorder, single episode, unspecified; F41.9 Anxiety disorder, unspecified; E78.5 Hyperlipidemia, unspecified; K21.9 Gastro-esophageal reflux disease without esophagitis; G44.229 Chronic tension-type headache, not intractable; G43.919 Migraine, unspecified, intractable, without status migrainosus; Z79.899 Other long term (current) drug therapy; Z88.8 Allergy status to other drugs, medicaments and biological substances; Z91.040 Latex allergy status; Z88.5 Allergy status to narcotic agent ==

== ENCOUNTER 2024-12-04 08:30 | Inpatient (IN) | payer OTHER ==
[~2024-12-04] VITALS: Ht 152.4 cm; Wt 64.5 kg
[2024-12-04] VITALS (25 sets, daily range): BP systolic 96–175; BP diastolic 56–104; TEMP 97.6–99.2; O2SAT 98–100
[~2024-12-04 08:30] MED LIST changes: -ALBU8.5H; +ALBU8.5H INH; +AMIT10TA11 PO; -AMIT10TA7; -DULO1CAP6; +DULO1CAP6 PO; -FARX1TAB5; +FARX1TAB5 PO; -FLUT1INH3; +FLUT1INH3 INH; -GABA-1172; +GABA-1172 PO; +TOPI-257 PO; -TOPI100T9
[2024-12-04] MEDS: ONDANSETRON 4MG 2ML VIAL IV ONE (10:21)
[2024-12-04] MEDS: NS (Normal Saline) 0.9% 1,000 ML IV ONE ×2 (10:21→15:53)
[2024-12-04 10:24] LABS: VENOUS BASE EXCESS -31.0 (-2.0-2.0); VENOUS HCO3 3.4 MMOL/L (23.0-27.0); VENOUS O2 SATURATION 81.5 % (60.0-80.0); VENOUS PARTIAL PRESSURE CO2 22.5 mmHg (38.0-50.0); VENOUS PARTIAL PRESSURE O2 51.8 mmHg (30.0-50.0); VENOUS PH 6.802 UNITS (7.330-7.430); VENOUS STANDARD HCO3 6.7 MMOL/L; VENOUS TOTAL CO2 4.1 MMOL/L (24.0-28.0)
[2024-12-04 10:29] LABS: PLATELET COUNT, AUTOMATED 590 10^3/uL (150-450)
[2024-12-04] MEDS ORDERED: INSULIN IV RATE CHANGE DOCUMENTATION ML/HR XX SCH (10:40)
[2024-12-04] MEDS ORDERED: ISOVUE-370 76% 100 ML VIAL As Ordered ONE (10:53)
[2024-12-04 10:57] LABS: ESTIMATED AVERAGE GLUCOSE 174.0 MG/DL (60-110)
[2024-12-04] MEDS: INSULIN REGULAR IN 0.9 % NACL 100 UNIT in IV 1 EA IV SCH (11:01)
[2024-12-04 11:10] LABS: LYMPHOCYTES 2 % (16-44); METAMYELOCYTES 1 % (0-0); NEUTROPHILS 90 % (28-66)
[2024-12-04 11:11] LABS: MONOCYTES 5 % (0-5)
[2024-12-04 11:12] LABS: PLATELET ESTIMATE INCREASED (NORMAL)
[2024-12-04 11:22] LABS: SALICYLATE LEVEL < 3.0 MG/DL (<30)
[2024-12-04 11:34] LABS: OSMOLALITY SERUM 325 MOSM/KG (275-295)
[2024-12-04 11:40] LABS: ALT/SGPT 11 U/L (7.0-40); AST/SGOT 9 U/L (<34); CALCIUM LEVEL 8.9 MG/DL (8.5-10.1); CARBON DIOXIDE LEVEL < 10.0 MMOL/L (20-31); CHLORIDE LEVEL 96 MMOL/L (98-107); CREATININE FOR GFR 0.81 MG/DL (0.55-1.30); GLOMERULAR FILTRATION RATE > 90.0 (>60); MAGNESIUM LEVEL 2.6 MG/DL (1.8-2.4); POTASSIUM SERUM 4.6 MMOL/L (3.5-5.1); SODIUM LEVEL 127 MMOL/L (136-145)
[2024-12-04 11:41] LABS: HCG, SERUM QUALITATIVE NEGATIVE (NEGATIVE)
[2024-12-04] MEDS: ACETAMINOPHEN *IV* 1,000 MG in IV 1 EA IV ONE (11:49)
[2024-12-04] MEDS: NS 0.9% IV ONE (11:53)
[2024-12-04] MEDS: [UNRECOGNIZED DRUG - OTHER] IV ONE (11:53)
[2024-12-04] MEDS: SODIUM BICARBONATE 8.4% INJ 50ML SYRINGE IV STA ×2 (12:09→12:17)
[2024-12-04] MEDS: KETOROLAC 30 MG/ML 1 ML VIAL IV ONE (12:10)
[2024-12-04 12:15] LABS: ETHYL ALCOHOL (ETHANOL) 0.003 % (0.000-0.010)
[2024-12-04] MEDS: PIPERACILLIN/TAZOBACTAM SOD 3.375 GM in DEXTROSE 5% (D5W) ADV/MINI-BAG 50 ML IV ONE (12:16)
[2024-12-04 13:23] LABS: KETONE, URINE AUTO RFX 2+ mg/dL (NEGATIVE); LEUKOCYTE ESTERASE UR AUTO RFX NEGATIVE (NEGATIVE); MUCUS, URINE RFX SMALL (NEGATIVE); NITRITE, URINE AUTO RFX NEGATIVE (NEGATIVE); RBC, URINE AUTO RFX 0 /HPF (0-3); SQUAM EPITHELIAL CELL UR AURFX 3 /HPF (0-6); WBC, URINE AUTO RFX 1 /HPF (0-3)
[2024-12-04] MEDS ORDERED: MONT10TA97 PO (13:37)
[2024-12-04] MEDS ORDERED: PRED10TA2 PO (13:37)
[2024-12-04 13:40] LABS: VENOUS BASE EXCESS -24.1 (-2.0-2.0); VENOUS HCO3 5.3 MMOL/L (23.0-27.0); VENOUS O2 SATURATION 91.9 % (60.0-80.0); VENOUS PARTIAL PRESSURE CO2 20.9 mmHg (38.0-50.0); VENOUS PARTIAL PRESSURE O2 64.1 mmHg (30.0-50.0); VENOUS PH 7.021 UNITS (7.330-7.430); VENOUS STANDARD HCO3 8.3 MMOL/L; VENOUS TOTAL CO2 5.9 MMOL/L (24.0-28.0)
[2024-12-04 13:50] LABS: AMPHETAMINES LEVEL URINE NEGATIVE (NEGATIVE); BARBITURATES URINE NEGATIVE (NEGATIVE); BENZODIAZEPINES URINE NEGATIVE (NEGATIVE); COCAINE METABOLITE URINE NEGATIVE (NEGATIVE); METHADONE URINE NEGATIVE (NEGATIVE); OPIATES URINE NEGATIVE (NEGATIVE); PHENCYCLIDINE URINE NEGATIVE (NEGATIVE)
[2024-12-04 13:55] LABS: CANNABINOIDS URINE POSITIVE (NEGATIVE)
[2024-12-04] MEDS ORDERED: E-Z-GAS II EFFERVESCENT PACKET (SODIUM BICARB./CITRIC ACID/SIMETHICONE) As Ordered ONE (14:19)
[2024-12-04] MEDS ORDERED: E-Z-PAQUE 96% w/w SUSP 176 GM BTL As Ordered ONE (14:19)
[2024-12-04] MEDS ORDERED: E-Z-HD 98% w/w 340 GM SUSP BTL As Ordered ONE (14:19)
[2024-12-04] MEDS ORDERED: GASTROGRAFIN SOLUTION 30 ML As Ordered ONE (14:27)
[2024-12-04] MEDS ORDERED: HOME MED LIST COMPLETE! XX SCH (14:45)
[2024-12-04] MEDS: KCL 20MEQ IN D5/0.45NS 1000ML 1,000 ML IV SCH (15:48)
[2024-12-04] MEDS: LR 1,000 ML IV ONE ×2 (16:05→17:39)
[2024-12-04] MEDS ORDERED: INSULIN REGULAR IN 0.9 % NACL 100 UNIT in IV 1 EA IV SCH (16:10)
[2024-12-04] MEDS: INSULIN IV RATE CHANGE DOCUMENTATION ML/HR XX SCH (16:20)
[2024-12-04 16:32] LABS: ACETONE/KETONE > 4.50 MMOL/L (0.02-0.27)
[2024-12-04 18:08] LABS: BASO # 0.1 10^3/uL (0.0-0.2); BASO % 0.2 % (0.0-1.0); EOS # 0.0 10^3/uL (0.0-0.5); EOS % 0.1 % (0.0-3.0); LYMPH # 1.4 10^3/uL (1.5-5.0); LYMPH % 5.1 % (24.0-44.0); MONO # 1.9 10^3/uL (0.0-0.8); MONO % 7.1 % (2.0-8.0); NEUTROPHILS # 23.1 10^3/uL (1.5-8.5); NEUTROPHILS % 86.3 % (36.0-66.0)
[2024-12-04] MEDS: PIPERACILLIN/TAZOBACTAM SOD 4.5 GM in DEXTROSE 5% (D5W) ADV/MINI-BAG 50 ML IV SCH (18:17)
[2024-12-04 18:22] LABS: PLATELET COUNT, AUTOMATED 194 10^3/uL (150-450)
[2024-12-04 18:23] LABS: C REACTIVE PROTEIN QUANTITATIV 0.54 MG/DL (<1.0)
[2024-12-04 18:26] LABS: ERYTHROCYTE SEDIMENTATION RATE < 1 mm/hr (0-20)
[2024-12-04 18:27] LABS: ACETONE/KETONE > 4.50 MMOL/L (0.02-0.27); ALT/SGPT < 9 U/L (7.0-40); AST/SGOT 11 U/L (<34); CALCIUM LEVEL 6.9 MG/DL (8.5-10.1); CARBON DIOXIDE LEVEL < 10.0 MMOL/L (20-31); CHLORIDE LEVEL 111 MMOL/L (98-107); CREATININE FOR GFR 0.61 MG/DL (0.55-1.30); FREE T4 1.11 NG/DL (0.89-1.76); GLOMERULAR FILTRATION RATE > 90.0 (>60); MAGNESIUM LEVEL 1.6 MG/DL (1.8-2.4); PHOSPHORUS LEVEL 1.8 MG/DL (2.5-4.9); POTASSIUM SERUM 3.9 MMOL/L (3.5-5.1); SODIUM LEVEL 139 MMOL/L (136-145)
[2024-12-04 18:57] LABS: OSMOLALITY SERUM 298 MOSM/KG (275-295)
[2024-12-04] MEDS: MAG SULF 1GM/100ML (MAG RUN) 1 GM in IV 1 EA IV ONE (19:34)
[2024-12-04 20:48] LABS: CALCIUM LEVEL 6.7 MG/DL (8.5-10.1); CARBON DIOXIDE LEVEL 11 MMOL/L (20-31); CHLORIDE LEVEL 112 MMOL/L (98-107); CREATININE FOR GFR 0.55 MG/DL (0.55-1.30); GLOMERULAR FILTRATION RATE > 90.0 (>60); POTASSIUM SERUM 3.4 MMOL/L (3.5-5.1); SODIUM LEVEL 136 MMOL/L (136-145)
[2024-12-04] MEDS: CALCIUM GLUCONATE 1,000 MG in DEXTROSE 5% (D5W) MINI-BAG PLU 100 ML IV ONE (20:53)
[2024-12-04] MEDS: SODIUM PHOSPHATE INJ 30 MMOL in D5W 500 ML IV SCH (21:56)
[2024-12-05] VITALS (24 sets, daily range): BP systolic 90–114; BP diastolic 51–66; TEMP 98–98.9; O2SAT 98–100
[2024-12-05 00:49] LABS: CALCIUM LEVEL 6.8 MG/DL (8.5-10.1); CARBON DIOXIDE LEVEL 14 MMOL/L (20-31); CHLORIDE LEVEL 112 MMOL/L (98-107); CREATININE FOR GFR 0.51 MG/DL (0.55-1.30); GLOMERULAR FILTRATION RATE > 90.0 (>60); POTASSIUM SERUM 3.1 MMOL/L (3.5-5.1); SODIUM LEVEL 136 MMOL/L (136-145)
[2024-12-05] MEDS: KCL 10MEQ/100ML SWI (KRUN) 100 ML IV SCH (01:00)
[2024-12-05] MEDS ORDERED: KCL 20MEQ IN 100ML SWI (KRUN) 20 MEQ in IV 1 EA IV ONE (01:15)
[2024-12-05] MEDS: KCL 20MEQ IN D5/0.45NS 1000ML 1,000 ML IV SCH (01:30)
[2024-12-05 05:52] LABS: CALCIUM LEVEL 6.4 MG/DL (8.5-10.1); CARBON DIOXIDE LEVEL 11 MMOL/L (20-31); CHLORIDE LEVEL 113 MMOL/L (98-107); CREATININE FOR GFR 0.50 MG/DL (0.55-1.30); GLOMERULAR FILTRATION RATE > 90.0 (>60); POTASSIUM SERUM 3.5 MMOL/L (3.5-5.1); SODIUM LEVEL 137 MMOL/L (136-145)
[2024-12-05 05:55] LABS: MAGNESIUM LEVEL 1.8 MG/DL (1.8-2.4); PHOSPHORUS LEVEL 1.8 MG/DL (2.5-4.9)
[2024-12-05 06:04] LABS: BASO # 0.0 10^3/uL (0.0-0.2); BASO % 0.2 % (0.0-1.0); EOS # 0.0 10^3/uL (0.0-0.5); EOS % 0.4 % (0.0-3.0); LYMPH # 1.3 10^3/uL (1.5-5.0); LYMPH % 11.6 % (24.0-44.0); MONO # 0.8 10^3/uL (0.0-0.8); MONO % 7.4 % (2.0-8.0); NEUTROPHILS # 9.1 10^3/uL (1.5-8.5); NEUTROPHILS % 80.0 % (36.0-66.0); PLATELET COUNT, AUTOMATED 150 10^3/uL (150-450)
[2024-12-05 09:10] LABS: CALCIUM LEVEL 6.5 MG/DL (8.5-10.1); CARBON DIOXIDE LEVEL 11 MMOL/L (20-31); CHLORIDE LEVEL 113 MMOL/L (98-107); CREATININE FOR GFR 0.51 MG/DL (0.55-1.30); GLOMERULAR FILTRATION RATE > 90.0 (>60); POTASSIUM SERUM 3.8 MMOL/L (3.5-5.1); SODIUM LEVEL 137 MMOL/L (136-145)
[2024-12-05] MEDS ORDERED: GLUCOSE 4 GM CHEW PO PRN (09:10)
[2024-12-05] MEDS ORDERED: GLUCAGON INJ 1 MG VIAL SC PRN (09:10)
[2024-12-05] MEDS ORDERED: DEXTROSE 50% 50 ML SYRINGE IV PRN (09:10)
[2024-12-05] MEDS: CALCIUM GLUCONATE 1,000 MG in DEXTROSE 5% (D5W) MINI-BAG PLU 100 ML IV SCH (09:30)
[2024-12-05] MEDS: LanTUS (INSULIN GLARGINE INJ) 1 UNITS/0.01 ML SC ONE (09:30)
[2024-12-05] MEDS: PANTOPRAZOLE 40MG VIAL IV SCH (09:30)
[2024-12-05] MEDS: LR 1,000 ML IV ONE (09:31)
[2024-12-05] MEDS: INSULIN LISPRO (NovoLOG) PER UNIT SC SCH (11:52)
[2024-12-05] MEDS: IPRATROPIUM 0.5 MG/ALBUTEROL 2.5 MG INH SOL UD 3 ML NEB PRN (12:03)
[2024-12-05 13:15] LABS: VENOUS BASE EXCESS -10.6 (-2.0-2.0); VENOUS HCO3 13.3 MMOL/L (23.0-27.0); VENOUS O2 SATURATION 99.2 % (60.0-80.0); VENOUS PARTIAL PRESSURE CO2 24.8 mmHg (38.0-50.0); VENOUS PARTIAL PRESSURE O2 168.2 mmHg (30.0-50.0); VENOUS PH 7.347 UNITS (7.330-7.430); VENOUS STANDARD HCO3 16.2 MMOL/L; VENOUS TOTAL CO2 14.1 MMOL/L (24.0-28.0)
[2024-12-05] MEDS: POTASSIUM PHOSPHATE INJ 30 MMOL in D5W 500 ML IV ONE ×2 (13:48→23:45)
[2024-12-05 14:20] LABS: CALCIUM LEVEL 7.6 MG/DL (8.5-10.1); CARBON DIOXIDE LEVEL 14 MMOL/L (20-31); CHLORIDE LEVEL 114 MMOL/L (98-107); CREATININE FOR GFR 0.49 MG/DL (0.55-1.30); GLOMERULAR FILTRATION RATE > 90.0 (>60); POTASSIUM SERUM 3.3 MMOL/L (3.5-5.1); SODIUM LEVEL 139 MMOL/L (136-145)
[2024-12-05 20:21] LABS: VENOUS BASE EXCESS -5.9 (-2.0-2.0); VENOUS HCO3 16.6 MMOL/L (23.0-27.0); VENOUS O2 SATURATION 99.2 % (60.0-80.0); VENOUS PARTIAL PRESSURE CO2 24.7 mmHg (38.0-50.0); VENOUS PARTIAL PRESSURE O2 205.5 mmHg (30.0-50.0); VENOUS PH 7.446 UNITS (7.330-7.430); VENOUS STANDARD HCO3 19.7 MMOL/L; VENOUS TOTAL CO2 17.4 MMOL/L (24.0-28.0)
[2024-12-05] MEDS: LanTUS (INSULIN GLARGINE INJ) 1 UNITS/0.01 ML SC SCH (20:26)
[2024-12-05 21:04] LABS: CALCIUM LEVEL 7.0 MG/DL (8.5-10.1); CARBON DIOXIDE LEVEL 16 MMOL/L (20-31); CHLORIDE LEVEL 116 MMOL/L (98-107); CREATININE FOR GFR 0.44 MG/DL (0.55-1.30); GLOMERULAR FILTRATION RATE > 90.0 (>60); POTASSIUM SERUM 3.3 MMOL/L (3.5-5.1); SODIUM LEVEL 143 MMOL/L (136-145)
[2024-12-05] MEDS: ACETAMINOPHEN *IV* 1,000 MG in IV 1 EA IV ONE (21:11)
[2024-12-05] MEDS: KCL 10MEQ/100ML SWI (KRUN) 10 MEQ in IV 1 EA IV SCH (21:51)
[2024-12-05] MEDS: PANTOPRAZOLE 40MG TAB PO ONE (21:51)
[2024-12-05 22:02] LABS: PHOSPHORUS LEVEL 1.6 MG/DL (2.5-4.9)
[2024-12-06] VITALS: BP 109/69; TEMP 97.9; O2SAT 99
[2024-12-06 04:14] VITALS: BP 118/74; TEMP 98.4; O2SAT 100
[2024-12-06 04:33] LABS: VENOUS BASE EXCESS -6.0 (-2.0-2.0); VENOUS HCO3 17.8 MMOL/L (23.0-27.0); VENOUS O2 SATURATION 97.9 % (60.0-80.0); VENOUS PARTIAL PRESSURE CO2 29.5 mmHg (38.0-50.0); VENOUS PARTIAL PRESSURE O2 104.9 mmHg (30.0-50.0); VENOUS PH 7.398 UNITS (7.330-7.430); VENOUS STANDARD HCO3 19.6 MMOL/L; VENOUS TOTAL CO2 18.7 MMOL/L (24.0-28.0)
[2024-12-06 04:46] LABS: BASO # 0.0 10^3/uL (0.0-0.2); BASO % 0.3 % (0.0-1.0); EOS # 0.0 10^3/uL (0.0-0.5); EOS % 0.5 % (0.0-3.0); LYMPH # 1.6 10^3/uL (1.5-5.0); LYMPH % 25.4 % (24.0-44.0); MONO # 0.5 10^3/uL (0.0-0.8); MONO % 8.2 % (2.0-8.0); NEUTROPHILS # 4.0 10^3/uL (1.5-8.5); NEUTROPHILS % 65.3 % (36.0-66.0); PLATELET COUNT, AUTOMATED 119 10^3/uL (150-450)
[2024-12-06 05:17] LABS: CALCIUM LEVEL 6.7 MG/DL (8.5-10.1); CARBON DIOXIDE LEVEL 19 MMOL/L (20-31); CHLORIDE LEVEL 112 MMOL/L (98-107); CREATININE FOR GFR 0.47 MG/DL (0.55-1.30); GLOMERULAR FILTRATION RATE > 90.0 (>60); MAGNESIUM LEVEL 1.7 MG/DL (1.8-2.4); PHOSPHORUS LEVEL 3.1 MG/DL (2.5-4.9); POTASSIUM SERUM 3.6 MMOL/L (3.5-5.1); SODIUM LEVEL 139 MMOL/L (136-145)
[2024-12-06] MEDS: MAG SULF 1GM/100ML (MAG RUN) 1 GM in IV 1 EA IV SCH (06:05)
[2024-12-06 08:00] VITALS: BP 120/73; TEMP 97.3; O2SAT 99
[2024-12-06] MEDS: LanTUS (INSULIN GLARGINE INJ) 1 UNITS/0.01 ML SC SCH (09:25)
[2024-12-06] MEDS: INSULIN LISPRO (NovoLOG) PER UNIT SC SCH ×2 (13:25→18:14)
[2024-12-06 16:00] VITALS: BP 124/67; TEMP 97.8; O2SAT 99
[2024-12-06 20:09] VITALS: BP 117/71; TEMP 98; O2SAT 98
[2024-12-06] MEDS: MAGNESIUM OXIDE 400 MG TAB PO SCH (20:37)
[2024-12-06] MEDS ORDERED: INSULIN LISPRO (NovoLOG) PER UNIT SC SCH (21:00)
[2024-12-06] MEDS: ACETAMINOPHEN 500 MG TAB PO ONE (22:14)
[2024-12-07 04:00] VITALS: BP 111/71; TEMP 97.8; O2SAT 99
[2024-12-07] MEDS: ACETAMINOPHEN 500 MG TAB PO ONE (04:10)
[2024-12-07 06:14] LABS: CALCIUM LEVEL 7.2 MG/DL (8.5-10.1); CARBON DIOXIDE LEVEL 24 MMOL/L (20-31); CHLORIDE LEVEL 107 MMOL/L (98-107); CREATININE FOR GFR 0.37 MG/DL (0.55-1.30); GLOMERULAR FILTRATION RATE > 90.0 (>60); MAGNESIUM LEVEL 2.0 MG/DL (1.8-2.4); POTASSIUM SERUM 3.4 MMOL/L (3.5-5.1); SODIUM LEVEL 140 MMOL/L (136-145)
[2024-12-07 08:00] VITALS: BP 113/69; TEMP 98.3; O2SAT 100
[2024-12-07] MEDS: LanTUS (INSULIN GLARGINE INJ) 1 UNITS/0.01 ML SC SCH (10:15)
[2024-12-07] MEDS: POTASSIUM CHLORIDE 10MEQ SR TABLET PO ONE (12:14)
[2024-12-07] MEDS: IBUPROFEN 600 MG TAB PO ONE (12:14)
[2024-12-07] MEDS: INSULIN LISPRO (NovoLOG) PER UNIT SC SCH (13:10)
[2024-12-07] MEDS: ENOXAPARIN 40 MG/0.4 ML SYRINGE (J1650 PER 10MG) SC SCH (15:20)
[2024-12-07 16:10] VITALS: BP 117/69; TEMP 98.5; O2SAT 100
[2024-12-07 20:06] VITALS: BP 139/86; TEMP 97.5; O2SAT 100
[2024-12-08 04:45] VITALS: BP 138/88; TEMP 97.3; O2SAT 100
[2024-12-08] MEDS: IBUPROFEN 600 MG TAB PO PRN (05:14)
[2024-12-08 08:43] LABS: CALCIUM LEVEL 7.5 MG/DL (8.5-10.1); CARBON DIOXIDE LEVEL 26 MMOL/L (20-31); CHLORIDE LEVEL 105 MMOL/L (98-107); CREATININE FOR GFR 0.41 MG/DL (0.55-1.30); GLOMERULAR FILTRATION RATE > 90.0 (>60); MAGNESIUM LEVEL 1.8 MG/DL (1.8-2.4); POTASSIUM SERUM 3.4 MMOL/L (3.5-5.1); SODIUM LEVEL 141 MMOL/L (136-145)
[2024-12-08] MEDS: KCL 10MEQ/100ML SWI (KRUN) 10 MEQ in IV 1 EA IV SCH (10:53)
[2024-12-08] MEDS: POTASSIUM CHLORIDE 10MEQ SR TABLET PO ONE (11:37)
[2024-12-08] MEDS ORDERED: METR-265 PO (14:51)
[2024-12-08] MEDS ORDERED: INSULANT SC (14:51)
[2024-12-08] MEDS ORDERED: MAGN400T33 PO (14:51)
[2024-12-08] MEDS ORDERED: CEFD1CAP9 PO (14:51)
[2024-12-08] MEDS ORDERED: INSUHUMDS SC (14:51)
[2024-12-08] MEDS ORDERED: POTA-298 PO (14:53)
[2024-12-08] MEDS ORDERED: ADVO0.5M2 SC (15:07)
[2024-12-08] MEDS ORDERED: [UNRECOGNIZED DRUG - CODE] XX (15:07)
[2024-12-08] MEDS ORDERED: LANTINJ4 SC ×3 (15:18→15:25)
[2024-12-08] MEDS ORDERED: INSU100I24 SQ (15:23)
== END 2024-12-08 15:45 | disposition home or self-care (01) | DRG 720 ==
LOC: M ED 08:30 → M ED INP 16:01 → M ICU 17:18 → M MS5PR 12-07 18:51
PROVIDERS: ADMIT Internal Medicine Pulmonary Disease; ATTEND Student in an Organized Health Care Education/Training Program
DX: A41.9 Sepsis, unspecified organism (principal); E11.10 Type 2 diabetes mellitus with ketoacidosis without coma; J98.2 Interstitial emphysema; E83.42 Hypomagnesemia; E11.65 Type 2 diabetes mellitus with hyperglycemia; E83.51 Hypocalcemia; A09 Infectious gastroenteritis and colitis, unspecified; F32.A Depression, unspecified; F41.9 Anxiety disorder, unspecified; E87.6 Hypokalemia; R65.20 Severe sepsis without septic shock; Z88.5 Allergy status to narcotic agent; Z79.899 Other long term (current) drug therapy; Z91.040 Latex allergy status; Z91.02 Food additives allergy status; Z90.49 Acquired absence of other specified parts of digestive tract; Z79.84 Long term (current) use of oral hypoglycemic drugs

== ENCOUNTER → 2024-12-20 | Outpatient (CLI) | payer OTHER ==
[~2024-12-20] MED LIST changes: +ADVO0.5M2 SC; +CEFD1CAP9 PO; +INSU100I24 SQ; +INSUHUMDS SC; +INSULANT SC; +LANTINJ4 SC; +MAGN400T33 PO; +METR-265 PO; +MONT10TA97 PO; +POTA-298 PO; +PRED10TA2 PO; +[UNRECOGNIZED DRUG - CODE] XX
== END ==
LOC: M RAD 14:30
PROVIDERS: ATTEND Pediatrics
DX: M79.602 Pain in left arm (principal); I82.612 Acute embolism and thrombosis of superficial veins of left upper extremity